=== PATIENT | male | born 1950 | race Caucasian/White ===

== ENCOUNTER 2016-07-31 17:32 | Inpatient (IN) | payer MEDICARE, MEDICAID ==
[2016-07-31 17:58] VITALS: BMI 23.3
--- NOTE | 2016-07-31 18:33 | C.PDOC ---
History Of Present Illness A 65 year old male was brought in by because patient was found unconscious on the floor today. notes that when he woke up he was confused and disoriented. Patient doesn't recall passing out or what led to passing out but is more oriented now. Patient admits to drinking heavily on the weekend but denies drinking over the past day. He did drink a lot of water today but denies fever, chills, headache, palpitations, or any other complaints. Patient notes taking pills for circulation and doesn't know why. Time Seen by Provider: 07/31/16 17:51 History Per: Patient, Family History/Exam Limitations: no limitations Onset/Duration Of Symptoms: Hrs Current Symptoms Are (Timing): Still Present Fall Associated With With Symptoms: Yes, No Injury As Result Of Fall Severity: Mild Additional History Per: Patient Past Medical History Reviewed: Historical Data, Nursing Documentation, Vital Signs Vital Signs: Last Vital Signs Temp 98.5 F 07/31/16 17:37 Pulse 98 H 07/31/16 17:37 Resp 18 07/31/16 17:37 BP 151/82 H 07/31/16 17:37 Pulse Ox 95 07/31/16 19:18 Family History: States: Unknown Family Hx - Social History Hx Alcohol Use: Yes Hx Substance Use: No - Immunization History Hx Tetanus Toxoid Vaccination: No Hx Influenza Vaccination: No Hx Pneumococcal Vaccination: No Review Of Systems Except As Marked, All Systems Reviewed And Found Negative. Constitutional: Negative for: Fever, Chills Cardiovascular: Negative for: Palpitations Neurological: Positive for: Confusion (Syncopal episode), Other. Negative for: Headache Physical Exam - Physical Exam Appears: Non-toxic, No Acute Distress Skin: Normal Color, Warm, Dry Head: No Atraumatic, Normacephalic, Swelling (Swelling of the forehead, right eyebrow) Eye(s): bilateral: Normal Inspection, PERRL Oral Mucosa: Moist Tongue: Bite, Other (Ecchymosis right side of the tongue) Cardiovascular: Rhythm Regular, No Murmur Respiratory: Normal Breath Sounds, No Rales, No Rhonchi, No Wheezing Back: Other (Nonincontinence) Neurological/Psych: No Oriented x3 (More oriented now. Oriented to place and time), No Normal Speech (Slurred speech) ED Course And Treatment - Laboratory Results Result Diagrams: 07/31/16 18:36 07/31/16 18:36 Lab Interpretation: No Acute Changes Interpretation Of Abnormal: ETOH <2 ECG: Interpreted By Ga ECG Rhythm: Sinus Rhythm O2 Sat by Pulse Oximetry: 95 (Room air) Pulse Ox Interpretation: Normal - CT Scan/US Abdomen and pelvis Other Rad Studies (CT/US): Read By Radiologist, Radiology Report Reviewed CT/US Interpretation: Accession No. : [id number]. Patient Name / ID : DEJA MANZANARES / [id number]. Exam Date : 07/31/2016 18:23:51 ( Approved ). Study Comment : Sex / Age : M / 65Y. Creator : Shaji Amaya MD. Dictator : Shaji Amaya MD. Waste Examiner : [employer] Layout : Shaji Amaya MD. Approver2 : Report Date : 07/31/2016 18:30:45. My Comment : . PROCEDURE: CT HEAD WITHOUT CONTRAST. HISTORY: seizure. COMPARISON: None available. TECHNIQUE: Axial computed tomography images were obtained through the head/brain without intravenous contrast. Radiation dose: Total exam DLP = 930.96 mGy-cm. This CT exam was performed using one or more of the following dose reduction techniques: Automated exposure control, adjustment of the mA and/or kV according to patient size, and/or use of iterative reconstruction technique. FINDINGS: HEMORRHAGE: No intracranial hemorrhage. BRAIN: No mass effect or edema. Minimal age-appropriate diffuse cerebral atrophy. No evidence of acute infarct. VENTRICLES: Unremarkable. No hydrocephalus. CALVARIUM: Unremarkable. PARANASAL SINUSES: Unremarkable as visualized. No significant inflammatory changes. MASTOID AIR CELLS: Unremarkable as visualized. No inflammatory changes. OTHER FINDINGS: None. IMPRESSION: No intracranial mass , hemorrhage or evidence of acute infarct. Progress Note: 7:50 Patient had spontaneous generalized seizure in ED. episode lasted less than 1 minute. Patient post ictal. Cerebyx ordered Reevaluation Time: 19:48 - Physician Consult Information Time Consulting Physician Contacted: 19:50 Physician Contacted: Adithya Richey Outcome Of Conversation: Patient to be admitted for seizure disorder. Medical Decision Making Medical Decision Making: Plans: -EKG -Blood labs -IV fluids -Reassess and disposition Disposition - Disposition Disposition: HOSPITALIZED Disposition Time: 19:39 Condition: FAIR - Clinical Impression Clinical Impression: Alcohol withdrawal seizure - Scribe Statement The provider has reviewed the documentation as recorded by the Scribe Hiwot james All medical record entries made by the Lourdesibshen were at my direction and personally dictated by me. I have reviewed the chart and agree that the record accurately reflects my personal performance of the history, physical exam, medical decision making, and the department course for this patient. I have also personally directed, reviewed, and agree with the discharge instructions and disposition.
[2016-07-31 18:41] LABS: BASO % 0.2 % (0.0-2.0); EOS % 0.1 % (0.0-4.0); HEMATOCRIT 37.2 % (35.0-51.0); LYMPH # 0.7 K/uL (1.0-4.3); LYMPH % 6.7 % (20.0-40.0); MEAN CELL VOLUME 89.9 fL (80.0-94.0); MEAN CORPUSCULAR HEMOGLOBIN 31.1 pg (27.0-31.0); MEAN CORPUSCULAR HGB CONC 34.6 g/dL (33.0-37.0); MEAN PLATELET VOLUME 7.8 fL (7.2-11.7); MONO # 1.2 K/uL (0.0-0.8); MONO % 10.9 % (0.0-10.0); PLATELET COUNT 207 K/uL (130-400); RED CELL DISTRIBUTION WIDTH 13.3 % (11.5-14.5); WHITE BLOOD COUNT 10.6 K/uL (4.8-10.8)
[2016-07-31 18:44] LABS: RBC URINE 2 /hpf (0-3); URINE BACTERIA RARE (<OCC); URINE BILIRUBIN NEGATIVE (NEGATIVE); URINE COLOR Straw (YELLOW); URINE GLUCOSE (UA) NORMAL (Normal); URINE KETONE TRACE mg/dL (NEGATIVE); URINE LEUKOCYTE ESTERASE NEG Leu/uL (Negative); URINE PROTEIN NEGATIVE (NEGATIVE); URINE UROBILINOGEN NORMAL mg/dL (0.2-1.0); WBC URINE < 1 /hpf (0-5)
[2016-07-31 18:47] LABS: URINE BLOOD TRACE (NEGATIVE)
[2016-07-31 18:49] LABS: CHLORIDE 93 mmol/L (98-107); POTASSIUM 3.6 mmol/L (3.6-5.2); SODIUM 134 mmol/L (132-148)
[2016-07-31 18:51] LABS: GFR AFRICAN-AMERICAN > 60
[2016-07-31 18:52] LABS: ALB/GLOB RATIO 1.7 (1.0-2.1); ALKALINE PHOSPHATASE 72 U/L (38-126); ALT/SGPT 25 U/L (21-72); AST/SGOT 47 U/L (17-59); BILIRUBIN,TOTAL 1.4 mg/dL (0.2-1.3); BLOOD UREA NITROGEN 10 mg/dL (9-20); CALCIUM 9.4 mg/dl (8.6-10.4); CARBON DIOXIDE 24 mmol/L (22-30); GLUCOSE,RANDOM 117 mg/dL (75-110); TOTAL PROTEIN 7.6 g/dL (6.3-8.3)
[2016-07-31 18:53] LABS: ALCOHOL SERUM < 10 mg/dl (0-10)
[2016-07-31 19:12] LABS: NEUTROPHIL 81 % (50-75); TOTAL CELLS COUNTED 100
[2016-07-31] MEDS ORDERED: Fosphenytoin 1,000 MG in Sodium Chloride 0.9% 50 ML IV STA (19:45)
[2016-07-31] MEDS ORDERED: Fosphenytoin 1,000 MG in Sodium Chloride 0.9% 50 ML IV ONE (20:00)
--- NOTE | 2016-07-31 20:10 | CP.PCM.HP ---
<AntwanearnestShaji - Last Filed: 07/31/16 22:07> History of Present Illness - History of Present Illness History of Present Illness: CC: Patient lethargic s/p seizure (no complaints) HPI: 65 year old male with PMHx of Alcohol Abuse (15yrs) and Seizures, was brought in by ex- because patient was found unconscious on the floor today. Since patient was very lethargic and uncooperative during interview, the major of detail was obtain by speaking with ex- (Piper) and sister (Nichole) at bedside. Per family, when patient woke up on the floor, he was confused and disoriented. Neither the patient nor family recall what led to the syncopal episode, however family deduces it was either from being intoxicated or having a seizure. The patient admits to drinking heavily over the weekend (possibly 2+ bottles of wine per day), with the last drink yesterday. He reports drinking "a lot of water today." Patient is grossly lethargic and disoriented (alert to person/time, not place) and ROS is unreliable. Denies f/c, headache, dizziness, change in vision, hallucinations, chest pain, SOB, abdominal pain, n/v, d/c, or any additional complaints. Per ED note, patient had spontaneous generalized seizure in ED, lasting less than 1 minute and Cerebyx was administered. PMHx: Alcohol Abuse (x15yrs); Seizure (2010, 2013 - tx at [place]). PSHx: Surgical fixation of L wrist (2006) Meds: none Allergies: NKDA FamHx: Father Alcoholism ( at 45) SocHx: ETOH 6+ bottles of wine/wk x 15 years; Denies tobacco or illicit drug use PMD: none Present on Admission - Present on Admission Any Indicators Present on Admission: No Review of Systems - Review of Systems Systems not reviewed;Unavailable: Acuity of Condition, Altered Mental Status, Intoxicated (patient is very lethargic and uncooperative.), Uncooperative Past Patient History - Infectious Disease Hx of Infectious Diseases: None - Past Social History Smoking Status: Never Smoked - PSYCHIATRIC Hx Substance Use: No - SURGICAL HISTORY Hx Surgeries: No Meds Allergies/Adverse Reactions: Allergies Allergy/AdvReac Type Severity Reaction Status Date / Time No Known Allergies Allergy Verified 11/26/15 05:24 Physical Exam - Constitutional Appears: Non-toxic, No Acute Distress, Agitated (patient is very lethargic/ sleepy, and when aroused begins pulling at clothes), Confused - Head Exam Head Exam: NORMAL INSPECTION, NORMOCEPHALIC. absent: ATRAUMATIC (contusion over Right eyebrow) - Eye Exam Eye Exam: EOMI, Normal appearance, PERRL - ENT Exam ENT Exam: Mucous Membranes Dry. absent: Normal Exam (tongue bite with mild irritation of Rt tongue) - Neck Exam Neck exam: Positive for: Normal Inspection. Negative for: Tenderness - Respiratory Exam Respiratory Exam: Clear to Auscultation Bilateral, NORMAL BREATHING PATTERN. absent: Wheezes - Cardiovascular Exam Cardiovascular Exam: Tachycardia, +S1, +S2 - GI/Abdominal Exam GI & Abdominal Exam: Normal Bowel Sounds, Soft. absent: Tenderness - Extremities Exam Extremities exam: Positive for: normal inspection. Negative for: pedal edema, tenderness - Back Exam Back exam: absent: CVA tenderness (L), CVA tenderness (R) - Neurological Exam Neurological exam: Altered, Reflexes Normal Additional comments: Oriented to person/time, not place - Psychiatric Exam Psychiatric exam: Flat Affect (likely due to intoxication / withdrawal) - Skin Skin Exam: Dry, Intact, Normal Color, Warm Results - Vital Signs Recent Vital Signs: Last Vital Signs Temp 98.5 F 07/31/16 17:37 Pulse 98 H 07/31/16 17:37 Resp 18 07/31/16 17:37 BP 151/82 H 07/31/16 17:37 Pulse Ox 95 07/31/16 19:52 - Labs Result Diagrams: 07/31/16 18:36 07/31/16 18:36 Labs: Laboratory Results - last 24 hr 07/31/16 07/31/16 07/31/16 18:36 18:36 18:36 WBC 10.6 RBC 4.14 L Hgb 12.9 Hct 37.2 MCV 89.9 MCH 31.1 H MCHC 34.6 RDW 13.3 Plt Count 207 MPV 7.8 Neut % (Auto) 82.1 H Lymph % (Auto) 6.7 L Hoke % (Auto) 10.9 H Eos % (Auto) 0.1 Baso % (Auto) 0.2 Neut # 8.7 H Lymph # 0.7 L [place]oke # 1.2 H Eos # 0.0 Baso # 0.0 Neutrophils % (Manual) 81 H Lymphocytes % (Manual) 7 L Monocytes % (Manual) 12 H Platelet Estimate Normal Sodium 134 Potassium 3.6 Chloride 93 L Carbon Dioxide 24 Anion Gap 20 BUN 10 Creatinine 0.6 L Est GFR ( Amer) > 60 Est GFR (Non-Af Amer) > 60 Random Glucose 117 H Calcium 9.4 Total Bilirubin 1.4 H AST 47 ALT 25 Alkaline Phosphatase 72 Total Protein 7.6 Albumin 4.7 Globulin 2.9 Albumin/Globulin Ratio 1.7 Urine Color Straw Urine Clarity Clear Urine pH 7.0 Ur Specific [place] 1.011 Urine Protein Negative Urine Glucose (UA) Normal Urine Ketones Trace Urine Blood Trace H Urine Nitrate Negative Urine Bilirubin Negative Urine Urobilinogen Normal Ur Leukocyte Esterase Neg Urine WBC (Auto) < 1 Urine RBC (Auto) 2 Urine Bacteria Rare Alcohol, Quantitative < 10 Assessment & Plan - Assessment and Plan (Free Text) Assessment: Alcohol withdrawal -Hx of chronic alcohol abuse (x15yrs). -ETOH tox < 10 -Ativan 1mg IVP once (in ed) -Ativan Taper (see protocol) - hold for lethargy -Banana Bag at 100cc/hr (once) followed by NS0.9 at 100cc/hr -Thiamin 100mg PO qd, Hex Vit PO qd, FA 1mg PO qd (start in AM) -[facility] protocol -seizure precaution, neuro checks, aspiration precaution -Psych consult, Dr. Qureshi, f/u recs. -Tbili 1.4; AST/ALT WNL Seizure -Hx of 2 prior seizures per family, in 2010 + 2012. Seen at [facility]. Did not follow up with any physicians. -patient had spontaneous generalized seizure in ED, lasting less than 1 minute -EKG - NSR -Fosphenytoin 1000mg at 100cc/hr (in ed) -Continue Dilantin 100mg Q8 IVPB in AM. May switch to PO once patient is less lethargic. Head Contusion -s/p unwitnessed fall. Contusion over right eyebrow -CT head - negative -fall precautions Prophylaxis SCDs Zofran 4mg IVP Q6H PRN, nausea - Date & Time Date: 07/31/16 Time: 20:10 <Adithya Richey - Last Filed: 08/01/16 06:41> Results - Vital Signs Recent Vital Signs: Last Vital Signs Temp 98.9 F 08/01/16 05:08 Pulse 84 08/01/16 05:08 Resp 20 08/01/16 05:08 BP 120/71 08/01/16 05:08 Pulse Ox 96 08/01/16 05:08 - Labs Result Diagrams: 07/31/16 18:36 07/31/16 18:36 Labs: Laboratory Results - last 24 hr 07/31/16 19:59 POC Glucose (mg/dL) 125 H Assessment & Plan - Date & Time Date: 08/01/16 (I have seen and examined the patient. I agree with the findings and plan as documented by Dr. Wiggins. Patient with alcohol withdrawal. Witnessed seizure in the ED and prior to arrival to hospital by family. CIWA protocol. Continue Fosphenytoin. Thiamine and Folate. Consult to psych. Head contusion possibly from prior seizure or fall due to alcoholism. CT head negative. Monitor for acute changes.) Time: 06:38 Attending/Attestation - Attestation I have personally seen and examined this patient.: Yes I have fully participated in the care of the patient.: Yes I have reviewed all pertinent clinical information: Yes
[2016-07-31] MEDS ORDERED: Multivitamin (MVI) 10 ML, Thiamine 100 MG, Folic Acid 1 MG in Sodium Chloride 0.9% 1,00... IV ONE (22:15)
[2016-08-01 07:57] LABS: BASO % 0.4 % (0.0-2.0); HEMATOCRIT 36.9 % (35.0-51.0); LYMPH # 0.8 K/uL (1.0-4.3); LYMPH % 10.9 % (20.0-40.0); MEAN CELL VOLUME 90.5 fL (80.0-94.0); MEAN CORPUSCULAR HEMOGLOBIN 31.1 pg (27.0-31.0); MEAN CORPUSCULAR HGB CONC 34.3 g/dL (33.0-37.0); MEAN PLATELET VOLUME 8.1 fL (7.2-11.7); MONO # 0.9 K/uL (0.0-0.8); MONO % 12.5 % (0.0-10.0); RED CELL DISTRIBUTION WIDTH 13.6 % (11.5-14.5); WHITE BLOOD COUNT 7.4 K/uL (4.8-10.8)
[2016-08-01 08:20] LABS: CHLORIDE 92 mmol/L (98-107); POTASSIUM 3.9 mmol/L (3.6-5.2); SODIUM 129 mmol/L (132-148)
[2016-08-01 08:22] LABS: AST/SGOT 104 U/L (17-59); BILIRUBIN,TOTAL 1.3 mg/dL (0.2-1.3); CARBON DIOXIDE 29 mmol/L (22-30); GFR AFRICAN-AMERICAN > 60
[2016-08-01 08:23] LABS: ALB/GLOB RATIO 1.5 (1.0-2.1); ALKALINE PHOSPHATASE 60 U/L (38-126); ALT/SGPT 33 U/L (21-72); BLOOD UREA NITROGEN 7 mg/dL (9-20); CALCIUM 8.7 mg/dl (8.6-10.4); GLUCOSE,RANDOM 106 mg/dL (75-110); MAGNESIUM 1.8 mg/dL (1.6-2.3); PHOSPHOROUS 3.3 mg/dL (2.5-4.5); TOTAL PROTEIN 7.1 g/dL (6.3-8.3)
[2016-08-01 09:14] LABS: FOLATE > 20.0 ng/mL
[2016-08-01] MEDS: Multiple Vitamins Tab PO SCH (10:12)
[2016-08-01] MEDS: Sodium Chloride 0.9% 1,000 ML IV SCH ×2 (10:18→18:46)
--- NOTE | 2016-08-01 10:46 | PCM.PSYCH ---
Initial Psychiatric Evaluation - Initial Psychiatric Evaluation Type of Admission: Voluntary Legal Status: Capacity Chief Complaint (in patient's own words): I do not know History of Present Illness and Precipitating Events: This is a 65 years old male, who lives with his , currently unemployed and has a long history of drinking was escorted to the ED by the and she found him on the floor. Today patient was consulted because of history of alcohol use disorder and alcohol withdrawal symptoms. As per the hospital charts patient has a long history of drinking. He has been drinking for more than 2 pints on a daily basis. As per the information from the , patient was found on the floor intoxicated. She wasn't sure that patient had a seizure before getting intoxication or had a fall. However patient remained disorganize, internally preoccupied and delusional throughout the interview. Patient was disoriented to time and place. He remained irritable and agitated. As per the staff, patient at times become irritable, aggressive, agitated. Patient was on one-to-one for safety. However patient denied any suicidal ideation and any homicidal ideation. Current Medications: Active Medications Generic Name Dose Route Start Last Admin Trade Name Freq PRN Reason Stop Dose Admin Folic Acid 1 mg 08/01/16 10:00 08/01/16 10:12 Folic Acid PO 1 mg DAILY BRANDY Administration Phenytoin 100 mg/ Sodium 52 mls @ 240 mls/hr 08/01/16 06:00 08/01/16 07:23 Chloride IVPB 240 mls/hr Q8 BRANDY Administration Sodium Chloride 1,000 mls @ 100 mls/hr 08/01/16 08:30 08/01/16 10:18 Sodium Chloride 0.9% IV 100 mls/hr .Q10H BRANDY Administration Lorazepam 2 mg 07/31/16 20:54 08/01/16 08:06 Ativan PO 08/05/16 20:44 2 mg Q4 BRANDY Administration Taper Lorazepam 1 mg 07/31/16 23:27 08/01/16 00:09 Ativan IVP 1 mg Q4H PRN Administration Seizure activity Multivitamins 1 tab 08/01/16 10:00 08/01/16 10:12 Hexavitamin PO 1 tab DAILY BRANDY Administration Ondansetron HCl 4 mg 07/31/16 20:54 07/31/16 21:33 Zofran Inj IVP 4 mg Q6 PRN Administration Nausea/Vomiting Thiamine HCl 100 mg 08/01/16 10:00 08/01/16 10:11 Vitamin B1 Tab PO 100 mg DAILY BRANDY Administration Past Psychiatric History - Past Psychiatric History Previous Treatment History: None Pertinent Medical Hx (Current Medical&Sleep Prob, Allergies): Allergies Allergy/AdvReac Type Severity Reaction Status Date / Time No Known Allergies Allergy Verified 11/26/15 05:24 No Known Home Med 11/26/15 Review of Systems - Review of Systems All systems: reviewed and no additional remarkable complaints except - Psychiatric Psychiatric: Anxiety, Irritability Mental Status Examination - Personal Presentation Personal Presentation: Looks stated age - Affect Affect: Blunted - Motor Activity Motor Activity: Psychomotor Retardation - Reliability in Providing Information Reliability in Providing Information: Poor, due to alteration in thoughts, Poor , due to cognitve impairment - Speech Speech: Disorganized - Mood Mood: Anxious - Formal Thought Process Formal Thought Process: Delusions, Loosening of associations - Hallucinations/Delusions Delusions: Persecution - Obsessions/Compulsions Obsessions: No Compulsions: No - Cognitive Functions Orientation: Person Sensorium: Drowsy, Stuporous Attention/Concentration: Easily distracted Estimate of Intelligence: Below average Judgement: Imparied, as evidence by: Poor judgement, Imparied, as evidence by: Lack of insight into illness - Risk Risk: Withdrawal, Diminished functioning - Limitations Limitations: Living alone DSM 5 DX - DSM 5 DSM 5 Diagnosis: Alcohol induced psychosis R/O Delirium tremens Alcohol withdrawal complicated Alcohol use disorder severe - Recommended/Plan of Treatment Treatment Recommendations and Plan of Treatment: Alcohol withdrawal complicated R/O Delirium tremens CBT Psychoeducation Supportive therapy, individual therapy Ativan when necessary Ativan taper Folic acid/thiamine/multivitamin Haldol 5 mg by mouth twice a day Alcohol use disorder severe CBT Psychoeducation Supportive therapy, individual therapy Use [place] for abstinence - Smoking Cessation Smoking Cessation Initiated: No
--- NOTE | 2016-08-01 18:46 | CARD ---
APPROVED REPORT EKG Measurement Heart [id number] <Conclusion> Normal sinus rhythm Normal ECG
--- NOTE | 2016-08-01 19:28 | CP.PCM.PN ---
<Delmer Farr - Last Filed: 08/01/16 19:26> Subjective - Date & Time of Evaluation Date of Evaluation: 08/01/16 Time of Evaluation: 09:20 - Subjective Subjective: 65M with pmh of alcohol abuse admitted for alcohol withdrawal and seizures. Pt' s son states the seizures have only been associated with his alcohol abuse and have never been on seizure medications. During the exam the pt. was agitated, combative and was unable to be examined. A ROS and physical were unobtainable. Objective - Vital Signs/Intake and Output Vital Signs (last 24 hours): Temp Pulse Resp BP Pulse Ox 98.2 F 70 20 118/73 97 08/01/16 16:20 08/01/16 16:20 08/01/16 16:20 08/01/16 16:20 08/01/16 16:20 Intake and Output: 08/01/16 08/02/16 18:59 06:59 Intake Total 2290 Output Total 500 Balance 1790 - Medications Medications: Current Medications Diphenhydramine HCl (Benadryl) 50 mg PO BID [facility] Last Admin: 08/01/16 17:32 Dose: 50 mg Diphenhydramine HCl (Benadryl) 50 mg PO Q6 PRN PRN Reason: Extra Pyramidal Symptoms Folic Acid (Folic Acid) 1 mg PO DAILY [facility] Last Admin: 08/01/16 10:12 Dose: 1 mg Haloperidol (Haldol) 5 mg PO BID [facility] Last Admin: 08/01/16 17:32 Dose: 5 mg Haloperidol (Haldol) 5 mg PO Q8 PRN PRN Reason: Moderate Agitation Haloperidol Lactate (Haldol) 5 mg IM Q8 PRN PRN Reason: Moderate Agitation Sodium Chloride (Sodium Chloride 0.9%) 1,000 mls @ 100 mls/hr IV .Q10H [facility] Last Admin: 08/01/16 18:46 Dose: 100 mls/hr Lorazepam (Ativan) 1 mg IVP Q4H PRN PRN Reason: Seizure activity Last Admin: 08/01/16 00:09 Dose: 1 mg Lorazepam (Ativan) 2 mg PO Q4 BRANDY PRN Reason: Taper Stop: 08/05/16 20:53 Multivitamins (Hexavitamin) 1 tab PO DAILY [facility] Last Admin: 08/01/16 10:12 Dose: 1 tab Ondansetron HCl (Zofran Inj) 4 mg IVP Q6 PRN PRN Reason: Nausea/Vomiting Last Admin: 07/31/16 21:33 Dose: 4 mg Thiamine HCl (Vitamin B1 Tab) 100 mg PO DAILY [facility] Last Admin: 08/01/16 10:11 Dose: 100 mg - Labs Labs: 08/01/16 07:35 08/01/16 07:35 - Constitutional Appears: Agitated - Head Exam Head Exam: ATRAUMATIC, NORMOCEPHALIC Assessment and Plan - Assessment and Plan (Free Text) Plan: Alcohol withdrawal -Hx of chronic alcohol abuse (x15yrs). -ETOH tox < 10 -Ativan Taper (see protocol) - hold for lethargy -Ativan 1mg q4 prn -NS0.9 at 100cc/hr -Thiamin 100mg PO qd, Hex Vit PO qd, FA 1mg PO qd (start in AM) -[facility] protocol -seizure precaution, neuro checks, aspiration precaution -Psych consult, Dr. Qureshi, f/u recs. -Psychoeducation -CBT, Supportive Therapy, individual therapy -R/O Delirium tremens -Haldol 5mg BID -Tbili 1.4; AST/ALT WNL Seizure -per son, seizures only associated with alcohol abuse -d/c phenytoin, continue Ativan taper and Ativan prn Head Contusion -s/p unwitnessed fall. Contusion over right eyebrow -CT head - negative -fall precautions Prophylaxis SCDs Zofran 4mg IVP Q6H PRN, nausea <Hardeep Robison M - Last Filed: 08/02/16 16:01> Objective - Vital Signs/Intake and Output Vital Signs (last 24 hours): Temp Pulse Resp BP Pulse Ox 97.8 F 73 20 139/85 95 08/02/16 08:00 08/02/16 08:00 08/02/16 08:00 08/02/16 08:00 08/02/16 08:00 Intake and Output: 08/02/16 08/02/16 06:59 18:59 Intake Total 1150 Output Total 1000 Balance 150 - Medications Medications: Current Medications Diphenhydramine HCl (Benadryl) 50 mg PO BID [facility] Last Admin: 04/28/17 09:46 Dose: Not Given Diphenhydramine HCl (Benadryl) 50 mg PO Q6 PRN PRN Reason: Extra Pyramidal Symptoms Folic Acid (Folic Acid) 1 mg PO DAILY [facility] Last Admin: 08/02/16 09:46 Dose: Not Given Haloperidol (Haldol) 5 mg PO BID [facility] Last Admin: 08/02/16 09:46 Dose: Not Given Haloperidol (Haldol) 5 mg PO Q8 PRN PRN Reason: Moderate Agitation Haloperidol Lactate (Haldol) 5 mg IM Q8 PRN PRN Reason: Moderate Agitation Heparin Sodium (Porcine) (Heparin) 5,000 units SC Q12 [facility] Last Admin: 08/02/16 09:46 Dose: 5,000 units Sodium Chloride (Sodium Chloride 0.9%) 1,000 mls @ 100 mls/hr IV .Q10H [facility] Last Admin: 08/02/16 14:12 Dose: Not Given Lorazepam (Ativan) 2 mg PO Q4 BRANDY PRN Reason: Taper Stop: 08/05/16 20:53 Last Admin: 08/02/16 08:04 Dose: Not Given Lorazepam (Ativan) 0.5 mg IVP Q4H PRN PRN Reason: Seizure activity Multivitamins (Hexavitamin) 1 tab PO DAILY [facility] Last Admin: 08/02/16 09:46 Dose: Not Given Ondansetron HCl (Zofran Inj) 4 mg IVP Q6 PRN PRN Reason: Nausea/Vomiting Last Admin: 07/31/16 21:33 Dose: 4 mg Thiamine HCl (Vitamin B1 Tab) 100 mg PO DAILY [facility] Last Admin: 08/02/16 09:46 Dose: Not Given - Labs Labs: 08/02/16 11:05 08/02/16 07:18 Attending/Attestation - Attestation I have personally seen and examined this patient.: Yes I have fully participated in the care of the patient.: Yes I have reviewed all pertinent clinical information, including history, physical exam and plan: Yes Notes (Text): 08/02/16 16:00 Patient was seen and examined at bedside with the resident Patient is on Ativan taper Psychiatry evaluation seen and appreciated Patient does not have history of seizure disorder. The seizure is a likely secondary to alcohol withdrawal We will hold antiseizure medication I discussed the plan of care with the resident and agree with the above history and physical and assessment/plan by the resident
[2016-08-02 07:58] LABS: CHLORIDE 98 mmol/L (98-107); SODIUM 134 mmol/L (132-148)
[2016-08-02 08:00] LABS: AST/SGOT 171 U/L (17-59); BILIRUBIN,TOTAL 1.4 mg/dL (0.2-1.3); CARBON DIOXIDE 24 mmol/L (22-30); GFR AFRICAN-AMERICAN > 60
[2016-08-02 08:01] LABS: ALB/GLOB RATIO 1.5 (1.0-2.1); ALKALINE PHOSPHATASE 58 U/L (38-126); ALT/SGPT 50 U/L (21-72); BLOOD UREA NITROGEN 6 mg/dL (9-20); CALCIUM 8.4 mg/dl (8.6-10.4); GLUCOSE,RANDOM 81 mg/dL (75-110); MAGNESIUM 1.9 mg/dL (1.6-2.3); PHOSPHOROUS 3.1 mg/dL (2.5-4.5); TOTAL PROTEIN 6.6 g/dL (6.3-8.3)
[2016-08-02] MEDS: Multiple Vitamins Tab PO SCH (09:46)
[2016-08-02 11:18] LABS: BASO % 0.5 % (0.0-2.0); EOS % 0.9 % (0.0-4.0); HEMATOCRIT 38.9 % (35.0-51.0); LYMPH # 1.3 K/uL (1.0-4.3); MEAN CORPUSCULAR HEMOGLOBIN 30.5 pg (27.0-31.0); MEAN CORPUSCULAR HGB CONC 33.5 g/dL (33.0-37.0); MEAN PLATELET VOLUME 8.4 fL (7.2-11.7); MONO # 0.7 K/uL (0.0-0.8); MONO % 13.2 % (0.0-10.0); RED CELL DISTRIBUTION WIDTH 13.1 % (11.5-14.5)
[2016-08-02] MEDS: Sodium Chloride 0.9% 1,000 ML IV SCH (14:12)
--- NOTE | 2016-08-02 15:28 | PCM.PYCHPN ---
Psychiatric Progress Note - Psychiatric Progress Note Patient seen today, length of contact: 15 min Patient Chief Complaint: I do not know Problems Identified/Issues Discussed: Patient seen and evaluated, chart reviewed and discussed with the nurse. Patient remained disorganized, and internally preoccupied. Patient remained delusional and and disoriented. Patient still appears paranoid and delusional. He is on one-to-one. As per the staff he at times becomes irritable and agitated and tried to come off the bed and try to take the IV lines out. Medication Change: No Medical Record Reviewed: Yes Mental Status Examination - Cognitive Function Orientation: Person Memory: Intact Attention: Poor Concentration: Poor Association: Loose Fund of Knowledge: Poor - Mood Mood: Anxious - Affect Affect: Constricted - Formal Thought Process Formal Thought Process: Delusions, Paranoia, Loosening of associations - Suicidal Ideation Suicidal Ideation: No - Homicidal Ideation Homicidal Ideation: No Goal/Treatment Plan - Goal/Treatment Plan Need for Continued Stay: Remain at risks for inpatient hospitalization, Discharge may exacerbated symptoms, Severe functional impairment Progress Toward Problem(s) and Goals/Treatment Plan: Alcohol withdrawal complicated R/O Delirium tremens CBT Psychoeducation Supportive therapy, individual therapy Ativan when necessary Ativan taper Folic acid/thiamine/multivitamin Haldol 5 mg by mouth twice a day Alcohol use disorder severe CBT Psychoeducation Supportive therapy, individual therapy Use [place] for abstinence - Smoking Cessation Smoking Cessation Initiated: No
--- NOTE | 2016-08-02 21:01 | CP.PCM.PN ---
<Delmer Farr - Last Filed: 08/02/16 23:50> Subjective - Date & Time of Evaluation Date of Evaluation: 08/02/16 Time of Evaluation: 08:40 - Subjective Subjective: 65M with pmh of alcohol abuse admitted for alcohol withdrawal and seizures. Today, the pt. was sedated due to recent dose ativan. Pt. appeared in no acute distress and was arousable upon painful stimuli, but not coherent enough to have a conversation. His Ativan dose was decreased.. A ROS was unobtainable. Objective - Vital Signs/Intake and Output Vital Signs (last 24 hours): Temp Pulse Resp BP Pulse Ox 98.8 F 73 20 129/85 95 08/02/16 19:14 08/02/16 08:00 08/02/16 08:00 08/02/16 19:14 08/02/16 08:00 Intake and Output: 08/02/16 08/03/16 18:59 06:59 Intake Total 1150 Output Total 1000 Balance 150 - Medications Medications: Current Medications Diphenhydramine HCl (Benadryl) 50 mg PO BID [facility] Last Admin: 08/02/16 17:57 Dose: 50 mg Diphenhydramine HCl (Benadryl) 50 mg PO Q6 PRN PRN Reason: Extra Pyramidal Symptoms Folic Acid (Folic Acid) 1 mg PO DAILY [facility] Last Admin: 08/02/16 09:46 Dose: Not Given Haloperidol (Haldol) 5 mg PO BID [facility] Last Admin: 08/02/16 17:58 Dose: 5 mg Haloperidol (Haldol) 5 mg PO Q8 PRN PRN Reason: Moderate Agitation Haloperidol Lactate (Haldol) 5 mg IM Q8 PRN PRN Reason: Moderate Agitation Heparin Sodium (Porcine) (Heparin) 5,000 units SC Q12 [facility] Last Admin: 08/02/16 09:46 Dose: 5,000 units Sodium Chloride (Sodium Chloride 0.9%) 1,000 mls @ 100 mls/hr IV .Q10H [facility] Last Admin: 08/02/16 14:12 Dose: Not Given Lorazepam (Ativan) 1 mg PO Q6 [facility] PRN Reason: Taper Stop: 08/05/16 20:53 Last Admin: 08/02/16 08:04 Dose: Not Given Lorazepam (Ativan) 0.5 mg IVP Q4H PRN PRN Reason: Seizure activity Last Admin: 08/02/16 19:12 Dose: 0.5 mg Multivitamins (Hexavitamin) 1 tab PO DAILY [facility] Last Admin: 08/02/16 09:46 Dose: Not Given Ondansetron HCl (Zofran Inj) 4 mg IVP Q6 PRN PRN Reason: Nausea/Vomiting Last Admin: 07/31/16 21:33 Dose: 4 mg Thiamine HCl (Vitamin B1 Tab) 100 mg PO DAILY [facility] Last Admin: 08/02/16 09:46 Dose: Not Given - Labs Labs: 08/02/16 11:05 08/02/16 07:18 - Constitutional Appears: Non-toxic, No Acute Distress - Head Exam Head Exam: ATRAUMATIC, NORMOCEPHALIC - ENT Exam ENT Exam: Mucous Membranes Moist - Respiratory Exam Respiratory Exam: Clear to Ausculation Bilateral, NORMAL BREATHING PATTERN - Cardiovascular Exam Cardiovascular Exam: REGULAR RHYTHM, RRR, +S1, +S2. absent: JVD - GI/Abdominal Exam GI & Abdominal Exam: Soft, Normal Bowel Sounds. absent: Tenderness - Extremities Exam Extremities Exam: absent: Joint Swelling, Pedal Edema, Tenderness - Neurological Exam Neurological Exam: Altered (sedated) - Psychiatric Exam Additional comments: sedated - Skin Skin Exam: Dry, Intact, Normal Color, Warm Assessment and Plan - Assessment and Plan (Free Text) Assessment: Alcohol withdrawal -Hx of chronic alcohol abuse (x15yrs). -ETOH tox < 10 -Ativan Taper (see protocol) - hold for lethargy -Ativan 0.5mg q4 prn -NS 0.9 at 100cc/hr -Thiamin 100mg PO qd, Hex Vit PO qd, FA 1mg PO qd (start in AM) -[facility] protocol -seizure precaution, neuro checks, aspiration precaution -Psych consult, Dr. Qureshi, f/u recs. -Psychoeducation -CBT, Supportive Therapy, individual therapy -R/O Delirium tremens -Haldol 5mg BID -Tbili 1.4; AST/ALT WNL Seizure -per son, seizures only associated with alcohol abuse -d/c phenytoin, continue Ativan taper and Ativan prn Head Contusion -s/p unwitnessed fall. Contusion over right eyebrow -CT head - negative -fall precautions Prophylaxis SCDs Zofran 4mg IVP Q6H PRN, nausea <Hardeep Robison M - Last Filed: 08/03/16 09:04> Objective - Vital Signs/Intake and Output Vital Signs (last 24 hours): Temp Pulse Resp BP Pulse Ox 98.8 F 76 18 102/69 98 08/03/16 00:00 08/03/16 00:00 08/03/16 00:00 08/03/16 00:00 08/03/16 00:00 Intake and Output: 08/03/16 08/03/16 06:59 18:59 Intake Total 1100 Output Total 1000 Balance 100 - Medications Medications: Current Medications Diphenhydramine HCl (Benadryl) 50 mg PO BID [facility] Last Admin: 08/02/16 17:57 Dose: 50 mg Diphenhydramine HCl (Benadryl) 50 mg PO Q6 PRN PRN Reason: Extra Pyramidal Symptoms Folic Acid (Folic Acid) 1 mg PO DAILY [facility] Last Admin: 08/02/16 09:46 Dose: Not Given Haloperidol (Haldol) 5 mg PO BID [facility] Last Admin: 08/02/16 17:58 Dose: 5 mg Haloperidol (Haldol) 5 mg PO Q8 PRN PRN Reason: Moderate Agitation Haloperidol Lactate (Haldol) 5 mg IM Q8 PRN PRN Reason: Moderate Agitation Heparin Sodium (Porcine) (Heparin) 5,000 units SC Q12 [facility] Last Admin: 08/02/16 22:59 Dose: 5,000 units Sodium Chloride (Sodium Chloride 0.9%) 1,000 mls @ 100 mls/hr IV .Q10H [facility] Last Admin: 08/03/16 02:30 Dose: 100 mls/hr Lorazepam (Ativan) 1 mg PO Q6 [facility] PRN Reason: Taper Stop: 08/05/16 20:53 Last Admin: 08/02/16 08:04 Dose: Not Given Lorazepam (Ativan) 0.5 mg IVP Q4H PRN PRN Reason: Seizure activity Last Admin: 08/02/16 19:12 Dose: 0.5 mg Multivitamins (Hexavitamin) 1 tab PO DAILY [facility] Last Admin: 08/02/16 09:46 Dose: Not Given Ondansetron HCl (Zofran Inj) 4 mg IVP Q6 PRN PRN Reason: Nausea/Vomiting Last Admin: 07/31/16 21:33 Dose: 4 mg Thiamine HCl (Vitamin B1 Tab) 100 mg PO DAILY [facility] Last Admin: 08/02/16 09:46 Dose: Not Given - Labs Labs: 08/03/16 08:48 08/02/16 07:18 Attending/Attestation - Attestation I have personally seen and examined this patient.: Yes I have fully participated in the care of the patient.: Yes I have reviewed all pertinent clinical information, including history, physical exam and plan: Yes Notes (Text): 08/03/16 09:04 Patient was seen and examined at bedside with the resident Patient is somnolent but arousable We will hold Ativan because of patient's lethargy. I discussed the plan of care with the resident and agree with the above history and physical and assessment/plan but the resident
--- NOTE | 2016-08-03 02:15 | CP.PCM.PN ---
<Marty Fairchild - Last Filed: 08/03/16 02:09> Subjective - Date & Time of Evaluation Date of Evaluation: 08/03/16 Time of Evaluation: 02:09 - Subjective Subjective: PGY-1 Medicine Progress Note for Dr. Robison Patient seen and examined at bedside. No acute event overnight. Patient resting in bed comfortably. Patient feeling better and wants to sleep. Tolerating diet. Denies fever/chills, cp, sob, palpitations, abd pain, n/v/d. Objective - Vital Signs/Intake and Output Vital Signs (last 24 hours): Temp Pulse Resp BP Pulse Ox 99.0 F 83 21 129/78 95 08/02/16 22:10 08/02/16 22:10 08/02/16 22:10 08/02/16 22:10 08/02/16 22:10 Intake and Output: 08/02/16 08/03/16 18:59 06:59 Intake Total 1150 100 Output Total 1000 Balance 150 100 - Medications Medications: Current Medications Diphenhydramine HCl (Benadryl) 50 mg PO BID [facility] Last Admin: 08/02/16 17:57 Dose: 50 mg Diphenhydramine HCl (Benadryl) 50 mg PO Q6 PRN PRN Reason: Extra Pyramidal Symptoms Folic Acid (Folic Acid) 1 mg PO DAILY [facility] Last Admin: 08/02/16 09:46 Dose: Not Given Haloperidol (Haldol) 5 mg PO BID [facility] Last Admin: 08/02/16 17:58 Dose: 5 mg Haloperidol (Haldol) 5 mg PO Q8 PRN PRN Reason: Moderate Agitation Haloperidol Lactate (Haldol) 5 mg IM Q8 PRN PRN Reason: Moderate Agitation Heparin Sodium (Porcine) (Heparin) 5,000 units SC Q12 [facility] Last Admin: 08/02/16 22:59 Dose: 5,000 units Sodium Chloride (Sodium Chloride 0.9%) 1,000 mls @ 100 mls/hr IV .Q10H [facility] Last Admin: 08/02/16 14:12 Dose: Not Given Lorazepam (Ativan) 1 mg PO Q6 [facility] PRN Reason: Taper Stop: 08/05/16 20:53 Last Admin: 08/02/16 08:04 Dose: Not Given Lorazepam (Ativan) 0.5 mg IVP Q4H PRN PRN Reason: Seizure activity Last Admin: 08/02/16 19:12 Dose: 0.5 mg Multivitamins (Hexavitamin) 1 tab PO DAILY [facility] Last Admin: 08/02/16 09:46 Dose: Not Given Ondansetron HCl (Zofran Inj) 4 mg IVP Q6 PRN PRN Reason: Nausea/Vomiting Last Admin: 07/31/16 21:33 Dose: 4 mg Thiamine HCl (Vitamin B1 Tab) 100 mg PO DAILY [facility] Last Admin: 08/02/16 09:46 Dose: Not Given - Labs Labs: 08/02/16 11:05 08/02/16 07:18 - Constitutional Appears: Non-toxic, No Acute Distress - Head Exam Head Exam: ATRAUMATIC, NORMOCEPHALIC - Eye Exam Eye Exam: EOMI, Normal appearance Pupil Exam: PERRL - ENT Exam ENT Exam: Mucous Membranes Moist - Neck Exam Neck Exam: Normal Inspection - Respiratory Exam Respiratory Exam: Clear to Ausculation Bilateral, NORMAL BREATHING PATTERN - Cardiovascular Exam Cardiovascular Exam: RRR, +S1, +S2 - GI/Abdominal Exam GI & Abdominal Exam: Soft, Normal Bowel Sounds. absent: Tenderness - Extremities Exam Extremities Exam: Normal Capillary Refill. absent: Calf Tenderness - Back Exam Back Exam: absent: CVA tenderness (L), CVA tenderness (R) - Neurological Exam Neurological Exam: Alert, Awake, CN II-XII Intact, Oriented x3 - Psychiatric Exam Psychiatric exam: Flat Affect - Skin Skin Exam: Dry, Intact, Warm Assessment and Plan - Assessment and Plan (Free Text) Plan: Alcohol withdrawal -Hx of chronic alcohol abuse (x15yrs). -ETOH tox < 10 -Ativan Taper (see protocol) - hold for lethargy -Ativan 0.5 mg q4 prn -NS 0.9 at 100cc/hr -Thiamin 100mg PO qd, Hex Vit PO qd, FA 1mg PO qd (start in AM) -[facility] protocol -seizure precaution, neuro checks, aspiration precaution -Psych consult, Dr. Qureshi, f/u recs. -Psychoeducation -CBT, Supportive Therapy, individual therapy -R/O Delirium tremens -Haldol 5mg BID -Tbili 1.4; AST/ALT WNL Seizure -per son, seizures only associated with alcohol abuse -d/c phenytoin, continue Ativan taper and Ativan prn Head Contusion -s/p unwitnessed fall. Contusion over right eyebrow -CT head - negative -fall precautions Prophylaxis SCDs Zofran 4mg IVP Q6H PRN, nausea <Hardeep Robison M - Last Filed: 08/03/16 15:21> Objective - Vital Signs/Intake and Output Vital Signs (last 24 hours): Temp Pulse Resp BP Pulse Ox 98.8 F 76 18 102/69 98 08/03/16 00:00 08/03/16 00:00 08/03/16 00:00 08/03/16 00:00 08/03/16 00:00 Intake and Output: 08/03/16 08/03/16 06:59 18:59 Intake Total 1100 Output Total 1000 Balance 100 - Medications Medications: Current Medications Diphenhydramine HCl (Benadryl) 50 mg PO BID [facility] Last Admin: 08/03/16 09:21 Dose: 50 mg Diphenhydramine HCl (Benadryl) 50 mg PO Q6 PRN PRN Reason: Extra Pyramidal Symptoms Folic Acid (Folic Acid) 1 mg PO DAILY [facility] Last Admin: 08/02/16 09:46 Dose: Not Given Haloperidol (Haldol) 5 mg PO BID [facility] Last Admin: 08/02/16 17:58 Dose: 5 mg Haloperidol (Haldol) 5 mg PO Q8 PRN PRN Reason: Moderate Agitation Haloperidol Lactate (Haldol) 5 mg IM Q8 PRN PRN Reason: Moderate Agitation Last Admin: 08/03/16 09:21 Dose: 5 mg Heparin Sodium (Porcine) (Heparin) 5,000 units SC Q12 [facility] Last Admin: 08/03/16 09:22 Dose: 5,000 units Sodium Chloride (Sodium Chloride 0.9%) 1,000 mls @ 100 mls/hr IV .Q10H [facility] Last Admin: 08/03/16 02:30 Dose: 100 mls/hr Lorazepam (Ativan) 1 mg PO Q6 [facility] PRN Reason: Taper Stop: 08/05/16 20:53 Last Admin: 08/02/16 08:04 Dose: Not Given Lorazepam (Ativan) 0.5 mg IVP Q4H PRN PRN Reason: Seizure activity Last Admin: 08/03/16 10:08 Dose: 0.5 mg Multivitamins (Hexavitamin) 1 tab PO DAILY [facility] Last Admin: 08/03/16 09:21 Dose: 1 tab Ondansetron HCl (Zofran Inj) 4 mg IVP Q6 PRN PRN Reason: Nausea/Vomiting Last Admin: 07/31/16 21:33 Dose: 4 mg Thiamine HCl (Vitamin B1 Tab) 100 mg PO DAILY [facility] Last Admin: 08/02/16 09:46 Dose: Not Given - Labs Labs: 08/03/16 08:48 08/03/16 08:48 Attending/Attestation - Attestation I have personally seen and examined this patient.: Yes I have fully participated in the care of the patient.: Yes I have reviewed all pertinent clinical information, including history, physical exam and plan: Yes Notes (Text): 08/03/16 15:20 Patient was seen and examined at bedside Patient is somnolent but arousable Patient is more alert today than yesterday. We'll continue to hold Ativan because of somnolence Patient had physical therapy today and was able to ambulate As per the CP patient also had breakfast No further episodes of seizures We will continue current management I discussed the plan of care with the resident and agree with the above history and physical and assessment/plan. I discussed with the patient's son on phone.
[2016-08-03] MEDS: Sodium Chloride 0.9% 1,000 ML IV SCH ×5 (02:30→22:22)
[2016-08-03 08:58] LABS: BASO % 0.5 % (0.0-2.0); EOS # 0.1 K/uL (0.0-0.7); EOS % 0.8 % (0.0-4.0); HEMATOCRIT 39.4 % (35.0-51.0); LYMPH # 1.1 K/uL (1.0-4.3); LYMPH % 16.2 % (20.0-40.0); MEAN CELL VOLUME 91.8 fL (80.0-94.0); MEAN CORPUSCULAR HEMOGLOBIN 31.1 pg (27.0-31.0); MEAN CORPUSCULAR HGB CONC 33.8 g/dL (33.0-37.0); MEAN PLATELET VOLUME 8.1 fL (7.2-11.7); MONO # 0.7 K/uL (0.0-0.8); MONO % 9.7 % (0.0-10.0); NRBC % 0.1 % (0.0-2.0); RED CELL DISTRIBUTION WIDTH 13.4 % (11.5-14.5); WHITE BLOOD COUNT 6.7 K/uL (4.8-10.8)
[2016-08-03 09:11] LABS: CHLORIDE 97 mmol/L (98-107)
[2016-08-03 09:12] LABS: POTASSIUM 3.6 mmol/L (3.6-5.2); SODIUM 135 mmol/L (132-148)
[2016-08-03 09:14] LABS: ALB/GLOB RATIO 1.5 (1.0-2.1); BILIRUBIN,TOTAL 1.1 mg/dL (0.2-1.3); CARBON DIOXIDE 22 mmol/L (22-30); GFR AFRICAN-AMERICAN > 60; TOTAL PROTEIN 6.8 g/dL (6.3-8.3)
[2016-08-03 09:15] LABS: ALKALINE PHOSPHATASE 64 U/L (38-126); ALT/SGPT 47 U/L (21-72); AST/SGOT 155 U/L (17-59); BLOOD UREA NITROGEN 10 mg/dL (9-20); CALCIUM 8.6 mg/dl (8.6-10.4); GLUCOSE,RANDOM 128 mg/dL (75-110); PHOSPHOROUS 3.9 mg/dL (2.5-4.5)
[2016-08-03 09:16] LABS: MAGNESIUM 1.7 mg/dL (1.6-2.3)
[2016-08-03] MEDS: Multiple Vitamins Tab PO SCH (09:21)
[2016-08-03 19:57] VITALS: RESP 20
[2016-08-04 07:54] LABS: BASO % 0.4 % (0.0-2.0); EOS # 0.1 K/uL (0.0-0.7); EOS % 1.3 % (0.0-4.0); HEMATOCRIT 35.5 % (35.0-51.0); LYMPH # 1.2 K/uL (1.0-4.3); LYMPH % 16.6 % (20.0-40.0); MEAN CORPUSCULAR HEMOGLOBIN 31.3 pg (27.0-31.0); MEAN CORPUSCULAR HGB CONC 34.7 g/dL (33.0-37.0); MONO # 0.8 K/uL (0.0-0.8); MONO % 11.9 % (0.0-10.0); RED CELL DISTRIBUTION WIDTH 13.3 % (11.5-14.5); WHITE BLOOD COUNT 6.9 K/uL (4.8-10.8)
[2016-08-04 07:58] LABS: CHLORIDE 100 mmol/L (98-107)
[2016-08-04 07:59] LABS: SODIUM 136 mmol/L (132-148)
[2016-08-04 08:00] LABS: POTASSIUM 3.9 mmol/L (3.6-5.2)
[2016-08-04 08:02] LABS: ALB/GLOB RATIO 1.4 (1.0-2.1); ALKALINE PHOSPHATASE 65 U/L (38-126); ALT/SGPT 52 U/L (21-72); AST/SGOT 145 U/L (17-59); BILIRUBIN,TOTAL 0.9 mg/dL (0.2-1.3); BLOOD UREA NITROGEN 13 mg/dL (9-20); CARBON DIOXIDE 24 mmol/L (22-30); GFR AFRICAN-AMERICAN > 60; GLUCOSE,RANDOM 91 mg/dL (75-110); TOTAL PROTEIN 6.7 g/dL (6.3-8.3)
[2016-08-04 08:03] LABS: CALCIUM 8.6 mg/dl (8.6-10.4); MAGNESIUM 1.9 mg/dL (1.6-2.3); PHOSPHOROUS 4.1 mg/dL (2.5-4.5)
[2016-08-04] MEDS: Multiple Vitamins Tab PO SCH (09:37)
--- NOTE | 2016-08-04 15:24 | CP.PCM.PN ---
<Grace Myers - Last Filed: 08/04/16 15:34> Subjective - Date & Time of Evaluation Date of Evaluation: 08/04/16 Time of Evaluation: 08:00 - Subjective Subjective: Medicine Progress Note- Dr. Robison's service: Patient seen and examined at bedside this AM. Patient denies any pain, chest pain, headache, SOB or seizure activity. He states he is eating well as confirmed by his sister at bedside. Patient states he understands he has a drinking problem, but also states "but I drink a lot less than before". Sister at bedside concerned for patient and inquiring about inpatient detox program. No acute evens overnight. Objective - Vital Signs/Intake and Output Vital Signs (last 24 hours): Temp Pulse Resp BP Pulse Ox 97.9 F 85 20 133/84 95 08/04/16 07:00 08/04/16 07:00 08/04/16 07:00 08/04/16 07:00 08/04/16 07:00 Intake and Output: 08/04/16 08/04/16 06:59 18:59 Intake Total 0 450 Balance 2050 450 - Medications Medications: Current Medications Diphenhydramine HCl (Benadryl) 50 mg PO BID [facility] Last Admin: 08/04/16 09:37 Dose: 50 mg Diphenhydramine HCl (Benadryl) 50 mg PO Q6 PRN PRN Reason: Extra Pyramidal Symptoms Folic Acid (Folic Acid) 1 mg PO DAILY [facility] Last Admin: 08/04/16 09:37 Dose: 1 mg Haloperidol (Haldol) 5 mg PO BID [facility] Last Admin: 08/04/16 09:40 Dose: 5 mg Haloperidol (Haldol) 5 mg PO Q8 PRN PRN Reason: Moderate Agitation Haloperidol Lactate (Haldol) 5 mg IM Q8 PRN PRN Reason: Moderate Agitation Last Admin: 08/03/16 09:21 Dose: 5 mg Heparin Sodium (Porcine) (Heparin) 5,000 units SC Q12 [facility] Last Admin: 08/04/16 09:38 Dose: 5,000 units Lorazepam (Ativan) 1 mg PO Q8 [facility] PRN Reason: Taper Stop: 08/05/16 20:53 Last Admin: 08/02/16 08:04 Dose: Not Given Lorazepam (Ativan) 0.5 mg IVP Q4H PRN PRN Reason: Seizure activity Last Admin: 08/03/16 10:08 Dose: 0.5 mg Multivitamins (Hexavitamin) 1 tab PO DAILY [facility] Last Admin: 08/04/16 09:37 Dose: 1 tab Ondansetron HCl (Zofran Inj) 4 mg IVP Q6 PRN PRN Reason: Nausea/Vomiting Last Admin: 07/31/16 21:33 Dose: 4 mg Thiamine HCl (Vitamin B1 Tab) 100 mg PO DAILY [facility] Last Admin: 08/04/16 09:38 Dose: 100 mg - Labs Labs: 08/04/16 07:44 08/04/16 07:44 - Constitutional Appears: No Acute Distress - Head Exam Head Exam: NORMAL INSPECTION, NORMOCEPHALIC - Eye Exam Eye Exam: EOMI, Normal appearance. absent: Scleral icterus - ENT Exam ENT Exam: Mucous Membranes Moist - Neck Exam Neck Exam: Full ROM, Normal Inspection - Respiratory Exam Respiratory Exam: Clear to Ausculation Bilateral, NORMAL BREATHING PATTERN - Cardiovascular Exam Cardiovascular Exam: REGULAR RHYTHM, +S1, +S2 - GI/Abdominal Exam GI & Abdominal Exam: Soft. absent: Distended, Tenderness - Extremities Exam Extremities Exam: Full ROM, Normal Inspection - Neurological Exam Neurological Exam: Alert, Awake, Oriented x3 - Psychiatric Exam Psychiatric exam: Normal Affect, Normal Mood - Skin Skin Exam: Normal Color, Warm Assessment and Plan - Assessment and Plan (Free Text) Assessment: Alcohol withdrawal - Patient had physical therapy yesterday and was able to ambulate. He is alert and awake and oriented to self and place today. -Hx of chronic alcohol abuse (x15yrs). -ETOH tox < 10 -Tbili 1.4; AST/ALT WNL -Ativan Taper (see protocol) - on hold for lethargy -Ativan 0.5 mg q4 PRN - D/C NS 0.9 at 100cc/hr. Patient is eating. - Folic acid/thiamine/multivitamin -[facility] protocol -seizure precaution, neuro checks, aspiration precaution -Psych consult, Dr. Qureshi- help appreciated. -Psychoeducation -CBT, Supportive Therapy, individual therapy -Haldol 5mg BID -Haldol PRN for agitation Seizure -per son, seizures only associated with alcohol abuse -d/c phenytoin, continue Ativan taper and Ativan prn Head Contusion -s/p unwitnessed fall. Contusion over right eyebrow -CT head - negative -fall precautions Prophylaxis SCDs Zofran 4mg IVP Q6H PRN, nausea <RickiHardeep M - Last Filed: 08/04/16 17:18> Objective - Vital Signs/Intake and Output Vital Signs (last 24 hours): Temp Pulse Resp BP Pulse Ox 99 F 84 20 140/103 H 95 08/04/16 16:00 08/04/16 16:00 08/04/16 16:00 08/04/16 16:00 08/04/16 16:00 Intake and Output: 08/04/16 08/04/16 06:59 18:59 Intake Total 2049 450 Balance 2049 450 - Medications Medications: Current Medications Diphenhydramine HCl (Benadryl) 50 mg PO BID [facility] Last Admin: 08/04/16 09:37 Dose: 50 mg Diphenhydramine HCl (Benadryl) 50 mg PO Q6 PRN PRN Reason: Extra Pyramidal Symptoms Folic Acid (Folic Acid) 1 mg PO DAILY [facility] Last Admin: 08/04/16 09:37 Dose: 1 mg Haloperidol (Haldol) 5 mg PO BID [facility] Last Admin: 08/04/16 09:40 Dose: 5 mg Haloperidol (Haldol) 5 mg PO Q8 PRN PRN Reason: Moderate Agitation Haloperidol Lactate (Haldol) 5 mg IM Q8 PRN PRN Reason: Moderate Agitation Last Admin: 08/03/16 09:21 Dose: 5 mg Heparin Sodium (Porcine) (Heparin) 5,000 units SC Q12 [facility] Last Admin: 08/04/16 09:38 Dose: 5,000 units Lorazepam (Ativan) 1 mg PO Q8 [facility] PRN Reason: Taper Stop: 08/05/16 20:53 Last Admin: 08/02/16 08:04 Dose: Not Given Lorazepam (Ativan) 0.5 mg IVP Q4H PRN PRN Reason: Seizure activity Last Admin: 08/03/16 10:08 Dose: 0.5 mg Multivitamins (Hexavitamin) 1 tab PO DAILY [facility] Last Admin: 08/04/16 09:37 Dose: 1 tab Ondansetron HCl (Zofran Inj) 4 mg IVP Q6 PRN PRN Reason: Nausea/Vomiting Last Admin: 07/31/16 21:33 Dose: 4 mg Thiamine HCl (Vitamin B1 Tab) 100 mg PO DAILY [facility] Last Admin: 08/04/16 09:38 Dose: 100 mg - Labs Labs: 08/04/16 07:44 08/04/16 07:44 Attending/Attestation - Attestation I have personally seen and examined this patient.: Yes I have fully participated in the care of the patient.: Yes I have reviewed all pertinent clinical information, including history, physical exam and plan: Yes Notes (Text): 08/04/16 17:14 Patient seen and examined at bedside Patient is much more awake and alert today Patient is answering questions appropriately. Family is present at bedside Patient was admitted for alcohol withdrawal and seizures The seizures were likely secondary to alcohol withdrawal therefore medication for seizures was held Patient was started on Ativan taper but he became very somnolent therefore Ativan was placed on hold Patient is currently on Haldol and patient is doing better We will follow up recommendations of psychiatry for further treatment of alcohol withdrawal I discussed the plan of care with resident and I agree with above history and physical and assessment/plan by the resident.
[2016-08-04] MEDS: Sodium Chloride 0.9% 1,000 ML IV SCH (23:30)
[2016-08-05 07:23] VITALS: BP 128/83; PULSE 83; TEMP 98.2; O2SAT 97
[2016-08-05 08:20] LABS: BASO % 0.6 % (0.0-2.0); EOS # 0.1 K/uL (0.0-0.7); EOS % 2.3 % (0.0-4.0); HEMATOCRIT 37.2 % (35.0-51.0); LYMPH # 1.2 K/uL (1.0-4.3); LYMPH % 18.8 % (20.0-40.0); MEAN CELL VOLUME 90.6 fL (80.0-94.0); MEAN CORPUSCULAR HEMOGLOBIN 31.3 pg (27.0-31.0); MEAN CORPUSCULAR HGB CONC 34.5 g/dL (33.0-37.0); MEAN PLATELET VOLUME 7.9 fL (7.2-11.7); MONO # 0.7 K/uL (0.0-0.8); MONO % 11.5 % (0.0-10.0); RED CELL DISTRIBUTION WIDTH 13.3 % (11.5-14.5); WHITE BLOOD COUNT 6.5 K/uL (4.8-10.8)
[2016-08-05 08:34] LABS: CHLORIDE 100 mmol/L (98-107); POTASSIUM 4.1 mmol/L (3.6-5.2); SODIUM 136 mmol/L (132-148)
[2016-08-05 08:36] LABS: ALB/GLOB RATIO 1.4 (1.0-2.1); ALKALINE PHOSPHATASE 70 U/L (38-126); AST/SGOT 125 U/L (17-59); BILIRUBIN,TOTAL 0.9 mg/dL (0.2-1.3); BLOOD UREA NITROGEN 12 mg/dL (9-20); CARBON DIOXIDE 25 mmol/L (22-30); GFR AFRICAN-AMERICAN > 60; GLUCOSE,RANDOM 113 mg/dL (75-110); TOTAL PROTEIN 7.5 g/dL (6.3-8.3)
[2016-08-05 08:37] LABS: ALT/SGPT 57 U/L (21-72); CALCIUM 9.2 mg/dl (8.6-10.4); PHOSPHOROUS 3.8 mg/dL (2.5-4.5)
[2016-08-05] MEDS: Multiple Vitamins Tab PO SCH (10:24)
--- NOTE | 2016-08-05 14:05 | PCM.PYCHPN ---
Psychiatric Progress Note - Psychiatric Progress Note Patient seen today, length of contact: 16 min Patient Chief Complaint: "I'm fine now" Problems Identified/Issues Discussed: Covering for Dr. Qureshi he is seen, chart reviewd, case discussed. No new complaints He is pleasant and cooperative today. No delusions or hallucinations elicited or reported. He is forgetful and inattentive but no longer confused. Oriented to place, person and to time (mostly) [facility] care discussed - refused referrals except for AA Support given, [facility] used, Cleared for d/c Medication Change: No Medical Record Reviewed: Yes Mental Status Examination - Cognitive Function Orientation: Person, Place, Situation, Time (not to year: "2019") Memory: Intact Attention: Poor Concentration: Poor Association: Loose Fund of Knowledge: Poor - Mood Mood: Anxious - Affect Affect: Constricted - Speech Speech: Appropriate - Formal Thought Process Formal Thought Process: No Impairment - Suicidal Ideation Suicidal Ideation: No - Homicidal Ideation Homicidal Ideation: No Goal/Treatment Plan - Goal/Treatment Plan Progress Toward Problem(s) and Goals/Treatment Plan: Attend AA Consider IOP Stay away from alcohol, drugs See PCP regularly Take rx'ed meds
[2016-08-05] MEDS ORDERED: Pneumococcal 23-Valent Vaccine IM ONE (16:50)
--- NOTE | 2016-08-05 22:39 | CP.PCM.DIS ---
<Delmer Farr - Last Filed: 08/05/16 22:29> Provider - Provider Date of Admission: 08/01/16 17:07 Attending physician: Adithya Richey MD Time Spent in preparation of Discharge (in minutes): 35 Diagnosis - Discharge Diagnosis (1) Alcohol intoxication Status: Acute Hospital Course - Lab Results Lab Results: Most Recent Lab Values WBC 6.5 K/uL (4.8-10.8) 08/05/16 08:09 RBC 4.10 Mil/uL (4.40-5.90) L 08/05/16 08:09 Hgb 12.8 g/dL (12.0-18.0) 08/05/16 08:09 Hct 37.2 % (35.0-51.0) 08/05/16 08:09 MCV 90.6 fL (80.0-94.0) 08/05/16 08:09 MCH 31.3 pg (27.0-31.0) H 08/05/16 08:09 MCHC 34.5 g/dL (33.0-37.0) 08/05/16 08:09 RDW 13.3 % (11.5-14.5) 08/05/16 08:09 Plt Count 214 K/uL (130-400) 08/05/16 08:09 MPV 7.9 fL (7.2-11.7) 08/05/16 08:09 Neut % (Auto) 66.8 % (50.0-75.0) 08/05/16 08:09 Lymph % (Auto) 18.8 % (20.0-40.0) L 08/05/16 08:09 Emanuel % (Auto) 11.5 % (0.0-10.0) H 08/05/16 08:09 Eos % (Auto) 2.3 % (0.0-4.0) 08/05/16 08:09 Baso % (Auto) 0.6 % (0.0-2.0) 08/05/16 08:09 Neut # 4.3 K/uL (1.8-7.0) 08/05/16 08:09 Lymph # 1.2 K/uL (1.0-4.3) 08/05/16 08:09 Emanuel # 0.7 K/uL (0.0-0.8) 08/05/16 08:09 Eos # 0.1 K/uL (0.0-0.7) 08/05/16 08:09 Baso # 0.0 K/uL (0.0-0.2) 08/05/16 08:09 Neutrophils % (Manual) 81 % (50-75) H 07/31/16 18:36 Lymphocytes % (Manual) 7 % (20-40) L 07/31/16 18:36 Monocytes % (Manual) 12 % (0-10) H 07/31/16 18:36 Platelet Estimate Normal (NORMAL) 07/31/16 18:36 Sodium 136 mmol/L (132-148) 08/05/16 08:09 Potassium 4.1 mmol/L (3.6-5.2) 08/05/16 08:09 Chloride 100 mmol/L (98-107) 08/05/16 08:09 Carbon Dioxide 25 mmol/L (22-30) 08/05/16 08:09 Anion Gap 16 (10-20) 08/05/16 08:09 BUN 12 mg/dL (9-20) 08/05/16 08:09 Creatinine 0.6 MG/DL (0.8-1.5) L 08/05/16 08:09 Est GFR ( Amer) > 60 08/05/16 08:09 Est GFR (Non-Af Amer) > 60 08/05/16 08:09 POC Glucose (mg/dL) 125 mg/dL (65-110) H 07/31/16 19:59 Random Glucose 113 mg/dL (75-110) H 08/05/16 08:09 Serum Osmolality 276 mosm/kg (272-300) 08/01/16 20:39 Calcium 9.2 mg/dl (8.6-10.4) 08/05/16 08:09 Phosphorus 3.8 mg/dL (2.5-4.5) 08/05/16 08:09 Magnesium 2.0 mg/dL (1.6-2.3) 08/05/16 08:09 Total Bilirubin 0.9 mg/dL (0.2-1.3) 08/05/16 08:09 AST 125 U/L (17-59) H 08/05/16 08:09 ALT 57 U/L (21-72) 08/05/16 08:09 Alkaline Phosphatase 70 U/L (38-126) 08/05/16 08:09 Total Protein 7.5 g/dL (6.3-8.3) 08/05/16 08:09 Albumin 4.4 g/dL (3.5-5.0) 08/05/16 08:09 Globulin 3.1 gm/dL (2.2-3.9) 08/05/16 08:09 Albumin/Globulin Ratio 1.4 (1.0-2.1) 08/05/16 08:09 Vitamin B12 332 pg/mL (239-931) 08/01/16 07:35 Folate > 20.0 ng/mL 08/01/16 07:35 Urine Color Straw (YELLOW) 07/31/16 18:36 Urine Clarity Clear (Clear) 07/31/16 18:36 Urine pH 7.0 (5.0-8.0) 07/31/16 18:36 Ur Specific [place] 1.011 (1.003-1.030) 07/31/16 18:36 Urine Protein Negative mg/dL (NEGATIVE) 07/31/16 18:36 Urine Glucose (UA) Normal mg/dL (Normal) 07/31/16 18:36 Urine Ketones Trace mg/dL (NEGATIVE) 07/31/16 18:36 Urine Blood Trace (NEGATIVE) H 07/31/16 18:36 Urine Nitrate Negative (NEGATIVE) 07/31/16 18:36 Urine Bilirubin Negative (NEGATIVE) 07/31/16 18:36 Urine Urobilinogen Normal mg/dL (0.2-1.0) 07/31/16 18:36 Ur Leukocyte Esterase Neg Pineda/uL (Negative) 07/31/16 18:36 Urine WBC (Auto) < 1 /hpf (0-5) 07/31/16 18:36 Urine RBC (Auto) 2 /hpf (0-3) 07/31/16 18:36 Urine Bacteria Rare (<OCC) 07/31/16 18:36 Urine Osmolality 654 mosm/kg (300-1000) 08/01/16 20:39 Ur Random Sodium 142 mmol/L 08/01/16 20:39 Alcohol, Quantitative < 10 mg/dl (0-10) 07/31/16 18:36 - Hospital Course Hospital Course: 65 year old male with PMHx of Alcohol Abuse was brought in by ex- because patient was found unconscious on the floor today. Patient was grossly lethargic and disoriented (alert to person/time, not place). Per ED note, patient had spontaneous generalized seizure in ED, lasting less than 1 minute and Cerebyx was administered. It was later found the pt. does not have a history of seizures and has only had these episodes during times of alcohol withdrawal. CT head was negative for acute findings. Psych was consulted and pt. was started on Fluids, Multivitamins, Folic Acid, Thiamine, Ativan taper and CIWA protocol was initiated. Over the next 6 days the patient became more alert with no signs of withdrawal by day of discharge. Pt. was advised to stop drinking and join AA to address his Alcohol Abuse. He was also given a script for Gabapentin and advised to follow up with his primary care/[facility] within 1 week. This is a brief account of his stay. Please see his chart for more details - Date & Time of H&P Date of H&P: 08/05/16 Time of H&P: 03:00 Discharge Exam - Head Exam Head Exam: NORMAL INSPECTION, NORMOCEPHALIC - Eye Exam Eye Exam: EOMI, Normal appearance - ENT Exam ENT Exam: Mucous Membranes Moist - Neck Exam Neck exam: Full Rom - Respiratory Exam Respiratory Exam: Clear to PA & Lateral, NORMAL BREATHING PATTERN, UNREMARKABLE - Cardiovascular Exam Cardiovascular Exam: RRR, +S1, +S2 - GI/Abdominal Exam GI & Abdominal Exam: Normal Bowel Sounds, Soft, Unremarkable. absent: Tenderness - Extremities Exam Extremities exam: full ROM - Back Exam Back exam: FULL ROM. absent: rash noted - Neurological Exam Neurological exam: Alert, CN II-XII Intact, Normal Gait, Oriented x3, Reflexes Normal - Psychiatric Exam Psychiatric exam: Normal Affect, Normal Mood - Skin Skin Exam: Dry, Intact, Normal Color, Warm Discharge Plan - Discharge Medications Prescriptions: Gabapentin [Neurontin] 300 mg PO BID #60 cap - Follow Up Plan Condition: FAIR Disposition: HOME/ ROUTINE Instructions: Gabapentin (By mouth), Alcohol Intoxication (DC), Acute Delirium (DC), Alcohol Withdrawal (DC) Additional Instructions: Patient medically stable for discharge. Patient given information about AA programs for him to follow up with. Please stop drinking alcohol. Please follow up with your primary care within 1 week. If you do not have one please follow up with the [facility] at [phone] Thank you for allow us to take part in your care. <LoganShaji ya - Last Filed: 08/06/16 13:02> Provider - Provider Date of Admission: 08/01/16 17:07 Attending physician: Adithya Richey MD Hospital Course - Lab Results Lab Results: Most Recent Lab Values WBC 6.5 K/uL (4.8-10.8) 08/05/16 08:09 RBC 4.10 Mil/uL (4.40-5.90) L 08/05/16 08:09 Hgb 12.8 g/dL (12.0-18.0) 08/05/16 08:09 Hct 37.2 % (35.0-51.0) 08/05/16 08:09 MCV 90.6 fL (80.0-94.0) 08/05/16 08:09 MCH 31.3 pg (27.0-31.0) H 08/05/16 08:09 MCHC 34.5 g/dL (33.0-37.0) 08/05/16 08:09 RDW 13.3 % (11.5-14.5) 08/05/16 08:09 Plt Count 214 K/uL (130-400) 08/05/16 08:09 MPV 7.9 fL (7.2-11.7) 08/05/16 08:09 Neut % (Auto) 66.8 % (50.0-75.0) 08/05/16 08:09 Lymph % (Auto) 18.8 % (20.0-40.0) L 08/05/16 08:09 Emanuel % (Auto) 11.5 % (0.0-10.0) H 08/05/16 08:09 Eos % (Auto) 2.3 % (0.0-4.0) 08/05/16 08:09 Baso % (Auto) 0.6 % (0.0-2.0) 08/05/16 08:09 Neut # 4.3 K/uL (1.8-7.0) 08/05/16 08:09 Lymph # 1.2 K/uL (1.0-4.3) 08/05/16 08:09 Emanuel # 0.7 K/uL (0.0-0.8) 08/05/16 08:09 Eos # 0.1 K/uL (0.0-0.7) 08/05/16 08:09 Baso # 0.0 K/uL (0.0-0.2) 08/05/16 08:09 Neutrophils % (Manual) 81 % (50-75) H 07/31/16 18:36 Lymphocytes % (Manual) 7 % (20-40) L 07/31/16 18:36 Monocytes % (Manual) 12 % (0-10) H 07/31/16 18:36 Platelet Estimate Normal (NORMAL) 07/31/16 18:36 Sodium 136 mmol/L (132-148) 08/05/16 08:09 Potassium 4.1 mmol/L (3.6-5.2) 08/05/16 08:09 Chloride 100 mmol/L (98-107) 08/05/16 08:09 Carbon Dioxide 25 mmol/L (22-30) 08/05/16 08:09 Anion Gap 16 (10-20) 08/05/16 08:09 BUN 12 mg/dL (9-20) 08/05/16 08:09 Creatinine 0.6 MG/DL (0.8-1.5) L 08/05/16 08:09 Est GFR ( Amer) > 60 08/05/16 08:09 Est GFR (Non-Af Amer) > 60 08/05/16 08:09 POC Glucose (mg/dL) 125 mg/dL (65-110) H 07/31/16 19:59 Random Glucose 113 mg/dL (75-110) H 08/05/16 08:09 Serum Osmolality 276 mosm/kg (272-300) 08/01/16 20:39 Calcium 9.2 mg/dl (8.6-10.4) 08/05/16 08:09 Phosphorus 3.8 mg/dL (2.5-4.5) 08/05/16 08:09 Magnesium 2.0 mg/dL (1.6-2.3) 08/05/16 08:09 Total Bilirubin 0.9 mg/dL (0.2-1.3) 08/05/16 08:09 AST 125 U/L (17-59) H 08/05/16 08:09 ALT 57 U/L (21-72) 08/05/16 08:09 Alkaline Phosphatase 70 U/L (38-126) 08/05/16 08:09 Total Protein 7.5 g/dL (6.3-8.3) 08/05/16 08:09 Albumin 4.4 g/dL (3.5-5.0) 08/05/16 08:09 Globulin 3.1 gm/dL (2.2-3.9) 08/05/16 08:09 Albumin/Globulin Ratio 1.4 (1.0-2.1) 08/05/16 08:09 Vitamin B12 332 pg/mL (239-931) 08/01/16 07:35 Folate > 20.0 ng/mL 08/01/16 07:35 Urine Color Straw (YELLOW) 07/31/16 18:36 Urine Clarity Clear (Clear) 07/31/16 18:36 Urine pH 7.0 (5.0-8.0) 07/31/16 18:36 Ur Specific [place] 1.011 (1.003-1.030) 07/31/16 18:36 Urine Protein Negative mg/dL (NEGATIVE) 07/31/16 18:36 Urine Glucose (UA) Normal mg/dL (Normal) 07/31/16 18:36 Urine Ketones Trace mg/dL (NEGATIVE) 07/31/16 18:36 Urine Blood Trace (NEGATIVE) H 07/31/16 18:36 Urine Nitrate Negative (NEGATIVE) 07/31/16 18:36 Urine Bilirubin Negative (NEGATIVE) 07/31/16 18:36 Urine Urobilinogen Normal mg/dL (0.2-1.0) 07/31/16 18:36 Ur Leukocyte Esterase Neg Pineda/uL (Negative) 07/31/16 18:36 Urine WBC (Auto) < 1 /hpf (0-5) 07/31/16 18:36 Urine RBC (Auto) 2 /hpf (0-3) 07/31/16 18:36 Urine Bacteria Rare (<OCC) 07/31/16 18:36 Urine Osmolality 654 mosm/kg (300-1000) 08/01/16 20:39 Ur Random Sodium 142 mmol/L 08/01/16 20:39 Alcohol, Quantitative < 10 mg/dl (0-10) 07/31/16 18:36 Attending/Attestation - Attestation I have personally seen and examined this patient.: Yes I have fully participated in the care of the patient.: Yes I have reviewed all pertinent clinical information, including history, physical exam and plan: Yes Notes (Text): 08/06/16 12:54 Medical Attending: Patient was seen and examined with the medical territory manager. Agree with the above note by the resident. Patient was ambulating on his own without assistance. He did not have tremors on exam, tolerating diet, bathroom was ok Encouraged the patient to avoid alcohol use Shaji Logan
== END 2016-08-05 18:40 | disposition home or self-care (01) | DRG 895 ==
LOC: C.ER 17:32 → C.5T 19:52 → OBSVTOIN 08-01 17:07 → C.3T 08-02 21:52
PROVIDERS: ADMIT Family Medicine; ATTEND Family Medicine
PROC: HZ2ZZZZ Detoxification Services for Substance Abuse Treatment (ICD-10-PCS; principal; 2016-08-01)
PROC: HZ52ZZZ Individual Psychotherapy for Substance Abuse Treatment, Cognitive-Behavioral (ICD-10-PCS; 2016-08-01)
PROC: HZ59ZZZ Individual Psychotherapy for Substance Abuse Treatment, Supportive (ICD-10-PCS; 2016-08-01)
PROC: HZ56ZZZ Individual Psychotherapy for Substance Abuse Treatment, Psychoeducation (ICD-10-PCS; 2016-08-01)
DX: F10.231 Alcohol dependence with withdrawal delirium (principal); R56.9 Unspecified convulsions; F10.239 Alcohol dependence with withdrawal, unspecified; W18.30XA Fall on same level, unspecified, initial encounter; S00.93XA Contusion of unspecified part of head, initial encounter; S00.11XA Contusion of right eyelid and periocular area, initial encounter; Z81.1 Family history of alcohol abuse and dependence

== ENCOUNTER 2016-11-06 06:51 | Day surgery (SDC) | payer MEDICARE, MEDICAID ==
[2016-11-06 07:24] VITALS: BMI 26.9
[2016-11-06] MEDS ORDERED: Lactated Ringer's 500 ML IV ONE ×2 (09:16)
[2016-11-06] MEDS ORDERED: Propofol 10 mg/ml Inj (20 ML) ONE ×2 (09:21)
[2016-11-06] MEDS ORDERED: Lidocaine Hydrochloride 0 ML INJ ONE (09:21)
--- NOTE | 2016-11-06 09:23 | CP.SDSHP ---
Same Day Surgery H & P - History Proposed Procedure: Colonoscopy Pre-Op Diagnosis: Screening exam - Previous Medical/Surgical History Comments: Alcoholism Previous Surgical History: none - Allergies Allergies: Allergies No Known Allergies Allergy (Verified 11/06/16 07:23) - Current Medications Current Medications: reviewed, per reconciliation - Physical Exam General Appearance: wdwn nad Vital Signs: Vital Signs 11/06/16 11/06/16 07:24 07:42 Temperature 97.2 F L Pulse Rate 67 67 Respiratory 19 Rate Blood Pressure 131/97 H O2 Sat by Pulse 100 Oximetry Mental Status: Alert & Oriented x3 Heart: WNL Lungs: WNL GI: WNL - {Optional Preform as Required} Abdomen: WNL - Impression Impression: Screening colonoscopy Pt. Evaluated Today:Candidate for Anesthesia & Procedure: Yes - Date & Time Date: 11/06/16 Time: 09:23 Short Stay Discharge - Short Stay Discharge Admitting Diagnosis/Reason for Visit: ENCOUNTER FOR SCREENING FOR MALIGNANT NEOPLASM OF Disposition: HOME/ ROUTINE
[2016-11-06 09:35] VITALS: RESP 12
[2016-11-06 09:56] VITALS: TEMP 98.5
[2016-11-06 10:03] VITALS: O2SAT 100
[2016-11-06 11:05] VITALS: BP 143/70; PULSE 55
== END 2016-11-06 11:05 | disposition home or self-care (01) ==
LOC: C.ENDO 06:51
PROVIDERS: ATTEND Internal Medicine Gastroenterology
DX: Z12.11 Encounter for screening for malignant neoplasm of colon (principal)
CPT/HCPCS: 45378; J2704; J7120

== ENCOUNTER 2016-11-12 17:05 | Inpatient (IN) | payer MEDICARE, MEDICAID ==
[2016-11-12 17:18] VITALS: BMI 26.6
[2016-11-12 18:02] LABS: CHLORIDE 87 mmol/L (98-107); SODIUM 129 mmol/L (132-148)
[2016-11-12 18:03] LABS: POTASSIUM 3.8 mmol/L (3.6-5.2)
[2016-11-12 18:05] LABS: BILIRUBIN,TOTAL 1.6 mg/dL (0.2-1.3); GFR AFRICAN-AMERICAN > 60
[2016-11-12 18:06] LABS: ALB/GLOB RATIO 1.6 (1.0-2.1); ALCOHOL SERUM < 10 mg/dl (0-10); ALKALINE PHOSPHATASE 100 U/L (38-126); ALT/SGPT 26 U/L (21-72); AST/SGOT 34 U/L (17-59); BLOOD UREA NITROGEN 10 mg/dL (9-20); CARBON DIOXIDE 17 mmol/L (22-30); GLUCOSE,RANDOM 132 mg/dL (75-110); TOTAL PROTEIN 7.7 g/dL (6.3-8.3)
[2016-11-12 18:07] LABS: BASO % 0.2 % (0.0-2.0); EOS % 0.1 % (0.0-4.0); HEMATOCRIT 38.8 % (35.0-51.0); LYMPH # 2.6 K/uL (1.0-4.3); LYMPH % 20.9 % (20.0-40.0); MEAN CELL VOLUME 90.3 fL (80.0-94.0); MEAN CORPUSCULAR HEMOGLOBIN 31.1 pg (27.0-31.0); MEAN CORPUSCULAR HGB CONC 34.4 g/dL (33.0-37.0); MEAN PLATELET VOLUME 8.3 fL (7.2-11.7); MONO % 8.3 % (0.0-10.0); NRBC % 0.1 % (0.0-2.0); RED CELL DISTRIBUTION WIDTH 12.7 % (11.5-14.5)
[2016-11-12 18:08] LABS: CARBAMAZEPINE < 3.0 ug/mL (4.0-12.0)
[2016-11-12 18:10] LABS: VALPROIC ACID < 10.0 ug/mL (50.0-100.0)
--- NOTE | 2016-11-12 18:13 | C.PDOC ---
History Of Present Illness 66 y/o male presents to the ED for after being found waiting with tonic/clonic seizure activity in the waiting room. Patient was immediately transported to bed 4 for immediate treatment. Pt appears to have post-ictal period, appeared to be confused. Patient had ambulated to ED for unknown complaints. History limited at this time. came to ED, states pt was drinking heavy for 2 days since discharge from hospital for same, then no liquor at all yesterday nor today- was increasingly agitated and difficult to manage @ home. Came to ED for eval. Time Seen by Provider: 11/12/16 17:17 Chief Complaint (Nursing): Seizure History Per: Patient History/Exam Limitations: clinical condition Recent Seizure Activity Began: Just Before Arrival Length Of Seizures (Duration): Unknown Post-ictal Period: Yes Past Medical History Reviewed: Historical Data, Nursing Documentation, Vital Signs Vital Signs: Last Vital Signs Temp 97.8 F 11/12/16 17:32 Pulse 90 11/12/16 21:36 Resp 20 11/12/16 21:36 BP 137/71 11/12/16 21:36 Pulse Ox 95 11/12/16 21:36 - Medical History PMH: Denies: Colonic Polyps, Fractures, Sleep Apnea, TIA - [facility] Procedures DETOXIFICATION SERVICES FOR SUBSTANCE ABUSE TREATMENT (08/01/16) INDIV PSYCHOTHERAPY FOR SUBSTANCE ABUSE TREATMENT, SUPPORT (08/01/16) INDIV PSYCHOTHERAPY FOR SUBSTANCE ABUSE, COGNITIV BEHAVIORAL (08/01/16) INDIV PSYCHOTHERAPY FOR SUBSTANCE ABUSE, PSYCHOEDUCATION (08/01/16) Family History: States: Unknown Family Hx - Social History Hx Alcohol Use: Yes Hx Substance Use: Yes (ALCOHOL) - Immunization History Hx Tetanus Toxoid Vaccination: No Hx Influenza Vaccination: No Hx Pneumococcal Vaccination: No Review Of Systems Cardiovascular: Negative for: Chest Pain, Palpitations Respiratory: Negative for: Shortness of Breath Neurological: Positive for: Seizures Physical Exam - Physical Exam Appears: Non-toxic, No Acute Distress, Other (writhing purposeful movements) Skin: Normal Color, Warm, Dry Head: Atraumatic, Normacephalic, No Other (no signs of head injury) Eye(s): bilateral: Normal Inspection Oral Mucosa: Moist Neck: Normal ROM, Supple Cardiovascular: Rhythm Regular, No Murmur Respiratory: Normal Breath Sounds, No Rales, No Rhonchi, No Wheezing Gastrointestinal/Abdominal: Soft, No Tenderness Neurological/Psych: No Oriented x3 (disoriented), Other (confused) ED Course And Treatment - Laboratory Results Result Diagrams: 11/12/16 17:50 11/12/16 17:50 O2 Sat by Pulse Oximetry: 100 (RA) Pulse Ox Interpretation: Normal Medical Decision Making Medical Decision Making: alcohol withdrawal seizures vs delerium tremens (2 days since abrupt d/c of heavy alcohol use) vs advanced dementia Disposition Doctor Will See Patient In The: Hospital Counseled Patient/Family Regarding: Studies Performed, Diagnosis - Disposition Disposition: HOSPITALIZED Disposition Time: 21:47 Condition: GOOD - Clinical Impression Clinical Impression: Tonic-clonic seizure, Alcohol withdrawal seizure, Delirium tremens - [place] Statement The provider has reviewed the documentation as recorded by the Juliana Whitney All medical record entries made by the Juliana were at my direction and personally dictated by me. I have reviewed the chart and agree that the record accurately reflects my personal performance of the history, physical exam, medical decision making, and the department course for this patient. I have also personally directed, reviewed, and agree with the discharge instructions and disposition.
[2016-11-12 18:16] LABS: WHITE BLOOD COUNT 12.6 K/uL (4.8-10.8)
[2016-11-12] MEDS ORDERED: Sodium Chloride 0.9% 1,000 ML IV ONE (18:58)
[2016-11-12] MEDS ORDERED: Multivitamin (MVI) 10 ML, Thiamine 100 MG, Folic Acid 1 MG in Sodium Chloride 0.9% 1,00... IV ONE (19:04)
--- NOTE | 2016-11-12 23:47 | CT ---
EXAM: CT Head Without Intravenous Contrast CLINICAL HISTORY: 66 years old, male; Signs and symptoms; Altered mental status/memory loss and syncope and collapse; Additional info: Seizure TECHNIQUE: Axial computed tomography images of the head/brain without intravenous contrast. This CT exam was performed using one or more of the following dose reduction techniques: automated exposure control, adjustment of the mA and/or kV according to patient size, and/or use of iterative reconstruction technique. Coronal and sagittal reformatted images were created and reviewed. COMPARISON: No relevant prior studies available. Examination is limited by significant amount of motion artifact. FINDINGS: Brain: No acute intracranial hemorrhage. Ventricles: Age-appropriate ventriculomegaly. Bones: No acute displaced fracture. Sinuses: Unremarkable as visualized. No acute sinusitis. Mastoid air cells: Unremarkable as visualized. No mastoid effusion. IMPRESSION: Limited examination secondary to motion artifact is without acute intracranial hemorrhage. Repeat examination, possibly with sedation is suggested.
--- NOTE | 2016-11-13 08:04 | RAD ---
PROCEDURE: CHEST RADIOGRAPH, 1 VIEW HISTORY: Seizure COMPARISON: None available. FINDINGS: LUNGS: Mild venous congestion. Small nodular density at the left lung base may represent prominent vessel on end versus small nodule and or granuloma. Right hilar prominence. Biapical pleural thickening with upper lobe granulomatous changes. PLEURA: No pneumothorax or pleural fluid seen. CARDIOVASCULAR: Normal. OSSEOUS STRUCTURES: No significant abnormalities. VISUALIZED UPPER ABDOMEN: Normal. OTHER FINDINGS: None. IMPRESSION: Mild venous congestion. Small nodular density at the left lung base may represent prominent vessel on end versus small nodule and or granuloma. Right hilar prominence. Biapical pleural thickening with upper lobe granulomatous changes.
[2016-11-13 08:15] LABS: RBC URINE < 1 /hpf (0-3); URINE BACTERIA RARE (<OCC); URINE BILIRUBIN NEGATIVE (NEGATIVE); URINE BLOOD NEGATIVE (NEGATIVE); URINE COLOR Straw (YELLOW); URINE GLUCOSE (UA) 1+ mg/dL (Normal); URINE KETONE 1+ mg/dL (NEGATIVE); URINE LEUKOCYTE ESTERASE NEG Leu/uL (Negative); URINE PROTEIN NEGATIVE (NEGATIVE); URINE UROBILINOGEN NORMAL mg/dL (0.2-1.0); WBC URINE 1 /hpf (0-5)
[2016-11-13 08:26] LABS: CHLORIDE 84 mmol/L (98-107); POTASSIUM 3.5 mmol/L (3.6-5.2)
[2016-11-13 08:28] LABS: CARBON DIOXIDE 24 mmol/L (22-30); CHOLESTEROL 152 mg/dL (0-199); GFR AFRICAN-AMERICAN > 60
[2016-11-13 08:29] LABS: BLOOD UREA NITROGEN 5 mg/dL (9-20); CALCIUM 8.5 mg/dl (8.6-10.4); GLUCOSE,RANDOM 104 mg/dL (75-110)
[2016-11-13 08:30] LABS: IRON 81 ug/dL (49-181)
[2016-11-13 08:41] LABS: SODIUM 119 mmol/L (132-148)
[2016-11-13 08:56] LABS: THYROID STIMULATING HORMONE 1.22 mIU/L (0.46-4.68)
[2016-11-13 09:02] LABS: HEMATOCRIT 35.1 % (35.0-51.0); MEAN CELL VOLUME 86.3 fL (80.0-94.0); MEAN CORPUSCULAR HEMOGLOBIN 30.9 pg (27.0-31.0); MEAN CORPUSCULAR HGB CONC 35.8 g/dL (33.0-37.0); RED CELL DISTRIBUTION WIDTH 12.7 % (11.5-14.5); WHITE BLOOD COUNT 10.1 K/uL (4.8-10.8)
[2016-11-13] MEDS ORDERED: Multivitamin (MVI) 10 ML, Thiamine 100 MG, Folic Acid 1 MG in Sodium Chloride 0.9% 1,00... IV ONE (09:15)
[2016-11-13 09:32] LABS: FOLATE 16.1 ng/mL
[2016-11-13] MEDS: Enoxaparin 40 mg Syringe SC SCH (10:14)
--- NOTE | 2016-11-13 11:21 | PCM.PSYCH ---
Initial Psychiatric Evaluation - Initial Psychiatric Evaluation Chief Complaint (in patient's own words): No c/c, he is uncommunicative History of Present Illness and Precipitating Events: The pt is seen, chart reviewed and case discussed. He is known to the movie writer from a consult in August 2016. Consult is requested by Dr. John for alcohol withdrawal. This is a 66 yo LM, , unemployed, lives with his . He came to ER for unknown reasons, likely due to alcohol abuse but had a GM seizure before being seen. He is given several ativan's and geodon (agitated) and transferred to medical floor Reporting Process Consultant spoke to his over the phone and she said that he had been drinking "a lot" since d/c from the last admission weeks ago No drugs No known medical issue No psych issues She did say that, however, he was getting confused and agitated easily Current Medications: Active Medications Generic Name Dose Route Start Last Admin Trade Name Freq PRN Reason Stop Dose Admin Acetaminophen 650 mg 11/13/16 08:31 11/13/16 08:56 Tylenol 650 Mg Supp UT 650 mg Q6 PRN Administration Fever >100.4 F Enoxaparin Sodium 40 mg 11/13/16 10:00 11/13/16 10:14 Lovenox SC 40 mg DAILY BRANDY Administration Famotidine 40 mg 11/13/16 10:00 11/13/16 10:13 Pepcid IVP 40 mg DAILY BRANDY Administration Gabapentin 300 mg 11/13/16 10:00 11/13/16 10:02 Neurontin PO Not Given BID BRANDY Multivitamins/Vitamin C 10 ml/ 1,011.2 mls @ 100 mls/hr 11/13/16 09:15 10:33 Thiamine HCl 100 mg/ Folic IV 11/13/16 19:21 100 mls/hr Acid 1 mg/ Sodium Chloride .Q10H7M ONE Administration Lorazepam 2 mg 11/13/16 11:17 Ativan IVP 11/17/16 11:14 Q6H BRANDY Taper Pneumococcal Polyvalent Vaccine 0.5 ml 11/15/16 10:00 Pneumovax 23 Vaccine IM 11/15/16 10:01 .ONCE ONE Past Psychiatric History - Past Psychiatric History Previous Treatment History: None Pertinent Medical Hx (Current Medical&Sleep Prob, Allergies): Allergies Allergy/AdvReac Type Severity Reaction Status Date / Time No Known Allergies Allergy Verified 11/06/16 07:23 Gabapentin [Neurontin] 300 mg PO BID #60 cap 08/05/16 Review of Systems - Review of Systems Systems not reviewed;Unavailable: Altered Mental Status (cannot assess, pt is unresponsive) Mental Status Examination - Personal Presentation Personal Presentation: Looks stated age - Affect Affect: Blunted - Motor Activity Motor Activity: Psychomotor Agitation - Reliability in Providing Information Reliability in Providing Information: Poor, due to cognitve impairment - Mood Mood: Other (unresponsive) - Formal Thought Process Formal Thought Process: Other (cannot assess) - Cognitive Functions Orientation: Situation (cannot assess) Sensorium: Lethargic Judgement: Intact, as evidence by: Other (cannot assess) Memory: Recent impaired, as evidenced by: Other (cannot assess) - Risk Risk: Seizure, Withdrawal, Diminished functioning - Strength & Assets Inventory Strength & Assets Inventory: Family support DSM 5 DX - DSM 5 DSM 5 Diagnosis: Alcohol use d/o - severe Delirium Tremens - Recommended/Plan of Treatment Treatment Recommendations and Plan of Treatment: Ativan taper IV, however, Dr. John wants to hold off on starting the taper b/ c the pt got big bolus of ativan already (in ED) and he is not opening his eyes and not communicating. However, he is still restless. Start ativan detox as soon as possible Vitamins Hydration Consider ICU transfer Monitor labs and vitals very closely Supportive measures Seizure precaution. Dilantin, keppra or gabapetin Refer to rehab or IOP Consider naltrexone after stabilization 31 min
[2016-11-13] MEDS: Piperacill/Tazo 3.375gm in Dex 3.375 GM/50 ML BAG IVPB SCH ×2 (14:17→21:15)
[2016-11-13 14:39] LABS: RBC URINE 2 /hpf (0-3); URINE BILIRUBIN NEGATIVE (NEGATIVE); URINE BLOOD NEGATIVE (NEGATIVE); URINE COLOR Straw (YELLOW); URINE GLUCOSE (UA) NORMAL (Normal); URINE KETONE 1+ mg/dL (NEGATIVE); URINE LEUKOCYTE ESTERASE NEG Leu/uL (Negative); URINE PROTEIN NEGATIVE (NEGATIVE); URINE UROBILINOGEN NORMAL mg/dL (0.2-1.0); WBC URINE 2 /hpf (0-5)
--- NOTE | 2016-11-13 19:02 | CP.PCM.HP ---
Past Patient History - Infectious Disease Hx of Infectious Diseases: None - Past Medical History & Family History Past Medical History?: No - Past Social History Smoking Status: Never Smoked - CARDIAC Hx Heart Attack: No - PULMONARY Hx Sleep Apnea: No - NEUROLOGICAL Hx Seizures: Yes (ETOH Related.) Hx Transient Ischemic Attacks (TIA): No - ENDOCRINE/METABOLIC Hx Hyperthyroidism: Yes - HEMATOLOGICAL/ONCOLOGICAL Hx Blood Transfusions: No - MUSCULOSKELETAL/RHEUMATOLOGICAL Hx Falls: Yes Other/Comment: Wrist Surgery. - GASTROINTESTINAL Hx Gastrointestinal Disorders: No - PSYCHIATRIC Hx Substance Use: No - SURGICAL HISTORY Hx Surgeries: No Hx Orthopedic Surgery: Yes (Wrist Surgery.) - ANESTHESIA Hx Anesthesia: Yes Hx Anesthesia Reactions: No Hx Malignant Hyperthermia: No Has any member of the family had a problem w/ anesthesia?: No Meds Allergies/Adverse Reactions: Allergies Allergy/AdvReac Type Severity Reaction Status Date / Time No Known Allergies Allergy Verified 11/06/16 07:23 Physical Exam - Constitutional Appears: Well - Head Exam Head Exam: ATRAUMATIC, NORMAL INSPECTION, NORMOCEPHALIC - Eye Exam Eye Exam: EOMI, Normal appearance, PERRL Pupil Exam: NORMAL ACCOMODATION, PERRL - ENT Exam ENT Exam: Mucous Membranes Moist, Normal Exam - Neck Exam Neck exam: Positive for: Normal Inspection - Respiratory Exam Respiratory Exam: Decreased Breath Sounds - Cardiovascular Exam Cardiovascular Exam: REGULAR RHYTHM, +S1, +S2 - GI/Abdominal Exam GI & Abdominal Exam: Diminished Bowel Sounds, Soft - Rectal Exam Rectal Exam: Deferred Results - Vital Signs Recent Vital Signs: Last Vital Signs Temp 98.4 F 11/13/16 15:52 Pulse 70 11/13/16 15:56 Resp 20 11/13/16 15:52 BP 151/82 H 11/13/16 15:52 Pulse Ox 98 11/13/16 15:52 - Labs Result Diagrams: 11/13/16 07:54 11/13/16 07:54 Labs: Laboratory Results - last 24 hr 11/13/16 11/13/16 11/13/16 07:18 07:18 07:54 WBC 10.1 RBC 4.07 L Hgb 12.6 Hct 35.1 MCV 86.3 D MCH 30.9 MCHC 35.8 RDW 12.7 Plt Count 160 MPV 8.0 Sodium Potassium Chloride Carbon Dioxide Anion Gap BUN Creatinine Est GFR ( Amer) Est GFR (Non-Af Amer) POC Glucose (mg/dL) Random Glucose Hemoglobin A1c Calcium Iron TIBC % Saturation Triglycerides Cholesterol LDL Cholesterol Direct HDL Cholesterol Vitamin B12 Folate TSH 3rd Generation Urine Color Straw Urine Clarity Clear Urine pH 7.0 Ur Specific [place] 1.009 Urine Protein Negative Urine Glucose (UA) 1+ H Urine Ketones 1+ H Urine Blood Negative Urine Nitrate Negative Urine Bilirubin Negative Urine Urobilinogen Normal Ur Leukocyte Esterase Neg Urine WBC (Auto) 1 Urine RBC (Auto) < 1 Ur Squamous Epith Cells < 1 Urine Bacteria Rare Urine Opiates Screen Negative Urine Methadone Screen Negative Ur Barbiturates Screen Negative Ur Phencyclidine Scrn Negative Ur Amphetamines Screen Negative U Benzodiazepines Scrn Negative U Oth Cocaine Metabols Negative U Cannabinoids Screen Negative 11/13/16 11/13/16 11/13/16 07:54 07:54 07:54 WBC RBC Hgb Hct MCV MCH MCHC RDW Plt Count MPV Sodium 119 L* Potassium 3.5 L Chloride 84 L Carbon Dioxide 24 Anion Gap 15 BUN 5 L Creatinine 0.5 L Est GFR ( Amer) > 60 Est GFR (Non-Af Amer) > 60 POC Glucose (mg/dL) Random Glucose 104 Hemoglobin A1c 5.8 Calcium 8.5 L Iron 81 TIBC 280 % Saturation 29 Triglycerides 58 Cholesterol 152 LDL Cholesterol Direct 67 HDL Cholesterol 74 H Vitamin B12 285 Folate 16.1 TSH 3rd Generation 1.22 Urine Color Urine Clarity Urine pH Ur Specific [place] Urine Protein Urine Glucose (UA) Urine Ketones Urine Blood Urine Nitrate Urine Bilirubin Urine Urobilinogen Ur Leukocyte Esterase Urine WBC (Auto) Urine RBC (Auto) Ur Squamous Epith Cells Urine Bacteria Urine Opiates Screen Urine Methadone Screen Ur Barbiturates Screen Ur Phencyclidine Scrn Ur Amphetamines Screen U Benzodiazepines Scrn U Oth Cocaine Metabols U Cannabinoids Screen 11/13/16 11/13/16 14:28 17:05 WBC RBC Hgb Hct MCV MCH MCHC RDW Plt Count MPV Sodium Potassium Chloride Carbon Dioxide Anion Gap BUN Creatinine Est GFR ( Amer) Est GFR (Non-Af Amer) POC Glucose (mg/dL) 95 Random Glucose Hemoglobin A1c Calcium Iron TIBC % Saturation Triglycerides Cholesterol LDL Cholesterol Direct HDL Cholesterol Vitamin B12 Folate TSH 3rd Generation Urine Color Straw Urine Clarity Clear Urine pH 7.0 Ur Specific [place] 1.008 Urine Protein Negative Urine Glucose (UA) Normal Urine Ketones 1+ H Urine Blood Negative Urine Nitrate Negative Urine Bilirubin Negative Urine Urobilinogen Normal Ur Leukocyte Esterase Neg Urine WBC (Auto) 2 Urine RBC (Auto) 2 Ur Squamous Epith Cells < 1 Urine Bacteria Urine Opiates Screen Urine Methadone Screen Ur Barbiturates Screen Ur Phencyclidine Scrn Ur Amphetamines Screen U Benzodiazepines Scrn U Oth Cocaine Metabols U Cannabinoids Screen
--- NOTE | 2016-11-13 19:18 | CARD ---
APPROVED REPORT EKG Measurement Heart [id number] <Conclusion> Sinus rhythm with 1st degree AV block Otherwise normal ECG
--- NOTE | 2016-11-13 23:00 | CP.PCM.CON ---
Past Patient History - Infectious Disease Hx of Infectious Diseases: None - Past Medical History & Family History Past Medical History?: No - Past Social History Smoking Status: Never Smoked - CARDIAC Hx Heart Attack: No - PULMONARY Hx Sleep Apnea: No - NEUROLOGICAL Hx Seizures: Yes (ETOH Related.) Hx Transient Ischemic Attacks (TIA): No - ENDOCRINE/METABOLIC Hx Hyperthyroidism: Yes - HEMATOLOGICAL/ONCOLOGICAL Hx Blood Transfusions: No - MUSCULOSKELETAL/RHEUMATOLOGICAL Hx Falls: Yes Other/Comment: Wrist Surgery. - GASTROINTESTINAL Hx Gastrointestinal Disorders: No - PSYCHIATRIC Hx Substance Use: No - SURGICAL HISTORY Hx Surgeries: No Hx Orthopedic Surgery: Yes (Wrist Surgery.) - ANESTHESIA Hx Anesthesia: Yes Hx Anesthesia Reactions: No Hx Malignant Hyperthermia: No Has any member of the family had a problem w/ anesthesia?: No Meds Allergies/Adverse Reactions: Allergies Allergy/AdvReac Type Severity Reaction Status Date / Time No Known Allergies Allergy Verified 11/06/16 07:23 - Medications Medications: Current Medications Acetaminophen (Tylenol 650 Mg Supp) 650 mg HI Q6 PRN PRN Reason: Fever >100.4 F Last Admin: 11/13/16 08:56 Dose: 650 mg Cyanocobalamin (Vitamin B12 1000 Mcg/Ml Inj) 1,000 mcg IM DAILY [facility] Enoxaparin Sodium (Lovenox) 40 mg SC DAILY [facility] Last Admin: 11/13/16 10:14 Dose: 40 mg Famotidine (Pepcid) 40 mg IVP DAILY [facility] Last Admin: 11/13/16 10:13 Dose: 40 mg Gabapentin (Neurontin) 300 mg PO BID [facility] Last Admin: 11/13/16 18:03 Dose: Not Given Piperacillin Sod/Tazobactam Sod (Zosyn 3.375 Gm Iv Premix) 3.375 gm in 50 mls @ 100 mls/hr IVPB Q8H [facility] Last Admin: 11/13/16 21:15 Dose: 100 mls/hr Lorazepam (Ativan) 2 mg IVP Q6H [facility] PRN Reason: Taper Stop: 11/17/16 11:14 Pneumococcal Polyvalent Vaccine (Pneumovax 23 Vaccine) 0.5 ml IM .ONCE ONE Stop: 11/15/16 10:01 Results - Vital Signs Recent Vital Signs: Last Vital Signs Temp 98.4 F 11/13/16 15:52 Pulse 70 11/13/16 15:56 Resp 20 11/13/16 15:52 BP 151/82 H 11/13/16 15:52 Pulse Ox 98 11/13/16 15:52 - Labs Result Diagrams: 11/13/16 07:54 11/13/16 07:54 Labs: Laboratory Results - last 24 hr 11/13/16 11/13/16 11/13/16 07:18 07:18 07:54 WBC 10.1 RBC 4.07 L Hgb 12.6 Hct 35.1 MCV 86.3 D MCH 30.9 MCHC 35.8 RDW 12.7 Plt Count 160 MPV 8.0 Sodium Potassium Chloride Carbon Dioxide Anion Gap BUN Creatinine Est GFR ( Amer) Est GFR (Non-Af Amer) POC Glucose (mg/dL) Random Glucose Hemoglobin A1c Calcium Iron TIBC % Saturation Triglycerides Cholesterol LDL Cholesterol Direct HDL Cholesterol Vitamin B12 Folate TSH 3rd Generation Urine Color Straw Urine Clarity Clear Urine pH 7.0 Ur Specific [place] 1.009 Urine Protein Negative Urine Glucose (UA) 1+ H Urine Ketones 1+ H Urine Blood Negative Urine Nitrate Negative Urine Bilirubin Negative Urine Urobilinogen Normal Ur Leukocyte Esterase Neg Urine WBC (Auto) 1 Urine RBC (Auto) < 1 Ur Squamous Epith Cells < 1 Urine Bacteria Rare Urine Opiates Screen Negative Urine Methadone Screen Negative Ur Barbiturates Screen Negative Ur Phencyclidine Scrn Negative Ur Amphetamines Screen Negative U Benzodiazepines Scrn Negative U Oth Cocaine Metabols Negative U Cannabinoids Screen Negative 11/13/16 11/13/16 11/13/16 07:54 07:54 07:54 WBC RBC Hgb Hct MCV MCH MCHC RDW Plt Count MPV Sodium 119 L* Potassium 3.5 L Chloride 84 L Carbon Dioxide 24 Anion Gap 15 BUN 5 L Creatinine 0.5 L Est GFR ( Amer) > 60 Est GFR (Non-Af Amer) > 60 POC Glucose (mg/dL) Random Glucose 104 Hemoglobin A1c 5.8 Calcium 8.5 L Iron 81 TIBC 280 % Saturation 29 Triglycerides 58 Cholesterol 152 LDL Cholesterol Direct 67 HDL Cholesterol 74 H Vitamin B12 285 Folate 16.1 TSH 3rd Generation 1.22 Urine Color Urine Clarity Urine pH Ur Specific [place] Urine Protein Urine Glucose (UA) Urine Ketones Urine Blood Urine Nitrate Urine Bilirubin Urine Urobilinogen Ur Leukocyte Esterase Urine WBC (Auto) Urine RBC (Auto) Ur Squamous Epith Cells Urine Bacteria Urine Opiates Screen Urine Methadone Screen Ur Barbiturates Screen Ur Phencyclidine Scrn Ur Amphetamines Screen U Benzodiazepines Scrn U Oth Cocaine Metabols U Cannabinoids Screen 11/13/16 11/13/16 11/13/16 14:28 17:05 21:29 WBC RBC Hgb Hct MCV MCH MCHC RDW Plt Count MPV Sodium Potassium Chloride Carbon Dioxide Anion Gap BUN Creatinine Est GFR ( Amer) Est GFR (Non-Af Amer) POC Glucose (mg/dL) 95 74 Random Glucose Hemoglobin A1c Calcium Iron TIBC % Saturation Triglycerides Cholesterol LDL Cholesterol Direct HDL Cholesterol Vitamin B12 Folate TSH 3rd Generation Urine Color Straw Urine Clarity Clear Urine pH 7.0 Ur Specific [place] 1.008 Urine Protein Negative Urine Glucose (UA) Normal Urine Ketones 1+ H Urine Blood Negative Urine Nitrate Negative Urine Bilirubin Negative Urine Urobilinogen Normal Ur Leukocyte Esterase Neg Urine WBC (Auto) 2 Urine RBC (Auto) 2 Ur Squamous Epith Cells < 1 Urine Bacteria Urine Opiates Screen Urine Methadone Screen Ur Barbiturates Screen Ur Phencyclidine Scrn Ur Amphetamines Screen U Benzodiazepines Scrn U Oth Cocaine Metabols U Cannabinoids Screen Assessment & Plan - Assessment and Plan (Free Text) Plan: Urine osmolality Serum osmolality CBC CMP Inferior serum sodium goes below 117 we will dialyze the patient's Continue 81 continue Lovenox Continue Neurontin Continue Pepcid Continue atenolol Continue on Zosyn Continue medications as ordered
[2016-11-13] MEDS ORDERED: Potassium Chloride 20 mEq ER Tab PO STA (23:02)
--- NOTE | 2016-11-13 23:35 | CON ---
REASON FOR CONSULTATION: Seizure. HISTORY OF PRESENT ILLNESS: The patient is 66-year-old male who was brought to the emergency room after he had a tonic clonic seizure. This was while he was in the waiting room. The patient was very agitated and confused after that. The patient came to the emergency room with unknown complaints. The patient is unable to give history, history is mainly from the chart. The patient was given about 12 mg of Ativan because patient was agitated. The patient apparently was drinking at home and recently stopped drinking alcohol. REVIEW OF SYSTEMS: Unable to obtain because of the patient's current mental status; however, patient is not having any cough, sputum production. PAST MEDICAL HISTORY: Unknown. CURRENT MEDICATIONS: Include Ativan p.r.n., Lovenox, multivitamin, thiamine, Neurontin, Pepcid, Tylenol. ALLERGIES: NO KNOWN DRUG ALLERGIES. FAMILY HISTORY: Unknown. SOCIAL HISTORY: Positive for alcohol use, unknown if he uses drugs, unknown for smoking history. PHYSICAL EXAMINATION GENERAL: The patient is an elderly male lying in the bed in no acute distress. VITAL SIGNS: His blood pressure is 138/79, heart rate is 93 per minute, his temperature is 100.5, breathing at the rate of 16 per minute. HEENT: Head is normocephalic, atraumatic. NECK: Supple. There are no carotid bruits. CARDIOPULMONARY: S1 and S2 audible. No murmurs. LUNGS: Clear. ABDOMEN: Soft and nontender with bowel sounds present. NEUROLOGIC: Mental Status: The patient is sleepy, but arousable with patient opens his eyes minimally on calling his name. He is not following commands. Cranial Nerve Examination: Pupils are 4 mm bilaterally, reactive to light. Visual aguayo are full to threat. Extraocular movements appear intact. There is no facial asymmetry. He is moving all 4 extremities symmetrically. Plantars downgoing bilaterally LABORATORY DATA: Reviewed showed WBC of 10.1, hemoglobin 12.6, hematocrit 35.1 and platelets 160. Sodium on admission was 129, today it is 119, potassium 3.5, chloride 84, carbon dioxide 24, BUN 5, creatinine 0.5, glucose of 104. His vitamin B12 is 285. His toxicology screening is negative. IMPRESSION: 1. Seizure likely secondary to alcohol withdrawal. 2. Hyponatremia, which may also be a contributing factor for seizure. 3. Vitamin B12 deficiency. RECOMMENDATIONS: 1. The patient to have MRI of the brain without contrast. 2. The patient will have an electroencephalogram. 3. We will hold off on any antiepileptic medication at present. 4. The patient to have vitamin B12 replacement. 5. Please continue supportive care and other treatment. Thank you for the opportunity to participate in the care of this patient. Champ Jaimes MD
--- NOTE | 2016-11-14 01:38 | CP.PCM.HP ---
History of Present Illness - History of Present Illness History of Present Illness: 11/13/16 History Of Present Illness 66 y/o male presents to the ED for after being found waiting with tonic/clonic seizure activity in the waiting room. Patient was immediately transported to bed 4 for immediate treatment. Pt appears to have post-ictal period, appeared to be confused. Patient had ambulated to ED for unknown complaints. History limited at this time. came to ED, states pt was drinking heavy for 2 days since discharge from hospital for same, then no liquor at all yesterday nor today- was increasingly agitated and difficult to manage @ home. Came to ED for eval. Present on Admission - Present on Admission Any Indicators Present on Admission: No Review of Systems - Review of Systems Systems not reviewed;Unavailable: Altered Mental Status, Intoxicated, Uncooperative - Constitutional Constitutional: As Per HPI - EENT Eyes: As Per HPI Ears: As Per HPI Nose/Mouth/Throat: As Per HPI - Cardiovascular Cardiovascular: As Per HPI - Respiratory Respiratory: As Per HPI - Gastrointestinal Gastrointestinal: As Per HPI - Musculoskeletal Musculoskeletal: As Per HPI - Integumentary Integumentary: As Per HPI - Neurological Neurological: As Per HPI - Psychiatric Psychiatric: As Per HPI - Endocrine Endocrine: As Per HPI - Hematologic/Lymphatic Hematologic: As Per HPI Past Patient History - Infectious Disease Hx of Infectious Diseases: None - Past Medical History & Family History Past Medical History?: No - Past Social History Smoking Status: Never Smoked - CARDIAC Hx Heart Attack: No - PULMONARY Hx Sleep Apnea: No - NEUROLOGICAL Hx Seizures: Yes (ETOH Related.) Hx Transient Ischemic Attacks (TIA): No - ENDOCRINE/METABOLIC Hx Hyperthyroidism: Yes - HEMATOLOGICAL/ONCOLOGICAL Hx Blood Transfusions: No - MUSCULOSKELETAL/RHEUMATOLOGICAL Hx Falls: Yes Other/Comment: Wrist Surgery. - GASTROINTESTINAL Hx Gastrointestinal Disorders: No - PSYCHIATRIC Hx Substance Use: No - SURGICAL HISTORY Hx Surgeries: No Hx Orthopedic Surgery: Yes (Wrist Surgery.) - ANESTHESIA Hx Anesthesia: Yes Hx Anesthesia Reactions: No Hx Malignant Hyperthermia: No Has any member of the family had a problem w/ anesthesia?: No Meds Allergies/Adverse Reactions: Allergies Allergy/AdvReac Type Severity Reaction Status Date / Time No Known Allergies Allergy Verified 11/06/16 07:23 Physical Exam - Constitutional Appears: Well, Toxic, Confused - Head Exam Head Exam: ATRAUMATIC, NORMAL INSPECTION, NORMOCEPHALIC - Eye Exam Eye Exam: EOMI, Normal appearance, PERRL Pupil Exam: NORMAL ACCOMODATION, PERRL - ENT Exam ENT Exam: Mucous Membranes Moist, Normal Exam - Neck Exam Neck exam: Positive for: Normal Inspection - Respiratory Exam Respiratory Exam: Clear to Auscultation Bilateral, NORMAL BREATHING PATTERN - Cardiovascular Exam Cardiovascular Exam: REGULAR RHYTHM - GI/Abdominal Exam GI & Abdominal Exam: Normal Bowel Sounds, Soft. absent: Tenderness - Rectal Exam Rectal Exam: NORMAL INSPECTION - Exam Exam: Circumcision, NORMAL INSPECTION External exam: NORMAL EXTERNAL EXAM Speculum exam: NORMAL SPECULUM EXAM Bimanual exam: NORMAL BIMANUAL EXAM - Extremities Exam Extremities exam: Positive for: normal inspection - Back Exam Back exam: NORMAL INSPECTION - Neurological Exam Neurological exam: Alert, CN II-XII Intact, Normal Gait, Oriented x3, Reflexes Normal - Psychiatric Exam Psychiatric exam: Normal Affect, Normal Mood - Skin Skin Exam: Dry, Intact, Normal Color, Warm Results - Vital Signs Recent Vital Signs: Last Vital Signs Temp 99.1 F 11/13/16 23:25 Pulse 75 11/13/16 23:25 Resp 20 11/13/16 23:25 BP 132/77 11/13/16 23:25 Pulse Ox 99 11/13/16 23:25 - Labs Result Diagrams: 11/13/16 07:54 11/13/16 07:54 Labs: Laboratory Results - last 24 hr 11/13/16 11/13/16 11/13/16 07:18 07:18 07:54 WBC 10.1 RBC 4.07 L Hgb 12.6 Hct 35.1 MCV 86.3 D MCH 30.9 MCHC 35.8 RDW 12.7 Plt Count 160 MPV 8.0 Sodium Potassium Chloride Carbon Dioxide Anion Gap BUN Creatinine Est GFR ( Amer) Est GFR (Non-Af Amer) POC Glucose (mg/dL) Random Glucose Hemoglobin A1c Calcium Iron TIBC % Saturation Triglycerides Cholesterol LDL Cholesterol Direct HDL Cholesterol Vitamin B12 Folate TSH 3rd Generation Urine Color Straw Urine Clarity Clear Urine pH 7.0 Ur Specific [place] 1.009 Urine Protein Negative Urine Glucose (UA) 1+ H Urine Ketones 1+ H Urine Blood Negative Urine Nitrate Negative Urine Bilirubin Negative Urine Urobilinogen Normal Ur Leukocyte Esterase Neg Urine WBC (Auto) 1 Urine RBC (Auto) < 1 Ur Squamous Epith Cells < 1 Urine Bacteria Rare Urine Opiates Screen Negative Urine Methadone Screen Negative Ur Barbiturates Screen Negative Ur Phencyclidine Scrn Negative Ur Amphetamines Screen Negative U Benzodiazepines Scrn Negative U Oth Cocaine Metabols Negative U Cannabinoids Screen Negative 11/13/16 11/13/16 11/13/16 07:54 07:54 07:54 WBC RBC Hgb Hct MCV MCH MCHC RDW Plt Count MPV Sodium 119 L* Potassium 3.5 L Chloride 84 L Carbon Dioxide 24 Anion Gap 15 BUN 5 L Creatinine 0.5 L Est GFR ( Amer) > 60 Est GFR (Non-Af Amer) > 60 POC Glucose (mg/dL) Random Glucose 104 Hemoglobin A1c 5.8 Calcium 8.5 L Iron 81 TIBC 280 % Saturation 29 Triglycerides 58 Cholesterol 152 LDL Cholesterol Direct 67 HDL Cholesterol 74 H Vitamin B12 285 Folate 16.1 TSH 3rd Generation 1.22 Urine Color Urine Clarity Urine pH Ur Specific [place] Urine Protein Urine Glucose (UA) Urine Ketones Urine Blood Urine Nitrate Urine Bilirubin Urine Urobilinogen Ur Leukocyte Esterase Urine WBC (Auto) Urine RBC (Auto) Ur Squamous Epith Cells Urine Bacteria Urine Opiates Screen Urine Methadone Screen Ur Barbiturates Screen Ur Phencyclidine Scrn Ur Amphetamines Screen U Benzodiazepines Scrn U Oth Cocaine Metabols U Cannabinoids Screen 11/13/16 11/13/16 11/13/16 14:28 17:05 21:29 WBC RBC Hgb Hct MCV MCH MCHC RDW Plt Count MPV Sodium Potassium Chloride Carbon Dioxide Anion Gap BUN Creatinine Est GFR ( Amer) Est GFR (Non-Af Amer) POC Glucose (mg/dL) 95 74 Random Glucose Hemoglobin A1c Calcium Iron TIBC % Saturation Triglycerides Cholesterol LDL Cholesterol Direct HDL Cholesterol Vitamin B12 Folate TSH 3rd Generation Urine Color Straw Urine Clarity Clear Urine pH 7.0 Ur Specific [place] 1.008 Urine Protein Negative Urine Glucose (UA) Normal Urine Ketones 1+ H Urine Blood Negative Urine Nitrate Negative Urine Bilirubin Negative Urine Urobilinogen Normal Ur Leukocyte Esterase Neg Urine WBC (Auto) 2 Urine RBC (Auto) 2 Ur Squamous Epith Cells < 1 Urine Bacteria Urine Opiates Screen Urine Methadone Screen Ur Barbiturates Screen Ur Phencyclidine Scrn Ur Amphetamines Screen U Benzodiazepines Scrn U Oth Cocaine Metabols U Cannabinoids Screen Assessment & Plan - Assessment and Plan (Free Text) Assessment: Ativan taper IV, however, wants to hold off on starting the taper b/c the pt got big bolus of ativan already (in ED) and he is not opening his eyes and not communicating. However, he is still restless. Start ativan detox as soon as possible Vitamins Hydration Consider ICU transfer , will put consult Monitor labs and vitals very closely Supportive measures Seizure precaution. Dilantin, keppra or gabapetin Refer to rehab or IOP Consider naltrexone after stabilization t has severe hyponatremia, which may be another reason why he is delirious and it can trigger more confusion, seizures and even coma. Plan: waiting input from neuro . d/d with psyche
--- NOTE | 2016-11-14 03:23 | CP.PCM.CON ---
History of Present Illness - History of Present Illness History of Present Illness: Patient was admitted by the attending to the ICU. But there was no ICU consult was called. The nurse called me today. There was a concern about altered mental status. Upon arrival patient is on one-to-one observation. Patient is awake and responding. He is answering simple questions only. He is moving all 4 extremities. No shaking noted. Patient vital signs are stable. Temp Pulse Resp BP Pulse Ox 99.1 F 75 20 132/77 99 11/13/16 23:25 11/13/16 23:25 11/13/16 23:25 11/13/16 23:25 11/13/16 23:25 Good air entry. Regular heart sound. Nontender abdomen. Patient's labs which was done this morning noted, there was a reduced sodium level noted in the blood. There was no repeat sodium level yet done. Patient's a sodium level should be monitored. If it is extremely low call for ICU evaluation. At this moment the patient is hemodynamically stable, no need for ICU monitoring Past Patient History - Infectious Disease Hx of Infectious Diseases: None - Past Medical History & Family History Past Medical History?: No - Past Social History Smoking Status: Never Smoked - CARDIAC Hx Heart Attack: No - PULMONARY Hx Sleep Apnea: No - NEUROLOGICAL Hx Seizures: Yes (ETOH Related.) Hx Transient Ischemic Attacks (TIA): No - ENDOCRINE/METABOLIC Hx Hyperthyroidism: Yes - HEMATOLOGICAL/ONCOLOGICAL Hx Blood Transfusions: No - MUSCULOSKELETAL/RHEUMATOLOGICAL Hx Falls: Yes Other/Comment: Wrist Surgery. - GASTROINTESTINAL Hx Gastrointestinal Disorders: No - PSYCHIATRIC Hx Substance Use: No - SURGICAL HISTORY Hx Surgeries: No Hx Orthopedic Surgery: Yes (Wrist Surgery.) - ANESTHESIA Hx Anesthesia: Yes Hx Anesthesia Reactions: No Hx Malignant Hyperthermia: No Has any member of the family had a problem w/ anesthesia?: No Meds Allergies/Adverse Reactions: Allergies Allergy/AdvReac Type Severity Reaction Status Date / Time No Known Allergies Allergy Verified 11/06/16 07:23 - Medications Medications: Current Medications Acetaminophen (Tylenol 650 Mg Supp) 650 mg [place] Q6 PRN PRN Reason: Fever >100.4 F Last Admin: 11/13/16 08:56 Dose: 650 mg Cyanocobalamin (Vitamin B12 1000 Mcg/Ml Inj) 1,000 mcg IM DAILY [facility] Enoxaparin Sodium (Lovenox) 40 mg SC DAILY [facility] Last Admin: 11/13/16 10:14 Dose: 40 mg Famotidine (Pepcid) 40 mg IVP DAILY [facility] Last Admin: 11/13/16 10:13 Dose: 40 mg Gabapentin (Neurontin) 300 mg PO BID [facility] Last Admin: 11/13/16 18:03 Dose: Not Given Piperacillin Sod/Tazobactam Sod (Zosyn 3.375 Gm Iv Premix) 3.375 gm in 50 mls @ 100 mls/hr IVPB Q8H [facility] Last Admin: 11/13/16 21:15 Dose: 100 mls/hr Potassium Chloride (Potassium Chloride 20 Meq/100 Ml) 20 meq in 100 mls @ 50 mls/hr IVPB Q2H [facility] Stop: 11/14/16 05:59 Last Admin: 11/14/16 02:05 Dose: 50 mls/hr Lorazepam (Ativan) 2 mg IVP Q6H [facility] PRN Reason: Taper Stop: 11/17/16 11:14 Pneumococcal Polyvalent Vaccine (Pneumovax 23 Vaccine) 0.5 ml IM .ONCE ONE Stop: 11/15/16 10:01 Results - Vital Signs Recent Vital Signs: Last Vital Signs Temp 99.1 F 11/13/16 23:25 Pulse 75 11/13/16 23:25 Resp 20 11/13/16 23:25 BP 132/77 11/13/16 23:25 Pulse Ox 99 11/13/16 23:25 - Labs Result Diagrams: 11/13/16 07:54 11/13/16 07:54 Labs: Laboratory Results - last 24 hr 11/13/16 11/13/16 11/13/16 07:18 07:18 07:54 WBC 10.1 RBC 4.07 L Hgb 12.6 Hct 35.1 MCV 86.3 D MCH 30.9 MCHC 35.8 RDW 12.7 Plt Count 160 MPV 8.0 Sodium Potassium Chloride Carbon Dioxide Anion Gap BUN Creatinine Est GFR ( Amer) Est GFR (Non-Af Amer) POC Glucose (mg/dL) Random Glucose Hemoglobin A1c Calcium Iron TIBC % Saturation Triglycerides Cholesterol LDL Cholesterol Direct HDL Cholesterol Vitamin B12 Folate TSH 3rd Generation Urine Color Straw Urine Clarity Clear Urine pH 7.0 Ur Specific [place] 1.009 Urine Protein Negative Urine Glucose (UA) 1+ H Urine Ketones 1+ H Urine Blood Negative Urine Nitrate Negative Urine Bilirubin Negative Urine Urobilinogen Normal Ur Leukocyte Esterase Neg Urine WBC (Auto) 1 Urine RBC (Auto) < 1 Ur Squamous Epith Cells < 1 Urine Bacteria Rare Urine Opiates Screen Negative Urine Methadone Screen Negative Ur Barbiturates Screen Negative Ur Phencyclidine Scrn Negative Ur Amphetamines Screen Negative U Benzodiazepines Scrn Negative U Oth Cocaine Metabols Negative U Cannabinoids Screen Negative 11/13/16 11/13/16 11/13/16 07:54 07:54 07:54 WBC RBC Hgb Hct MCV MCH MCHC RDW Plt Count MPV Sodium 119 L* Potassium 3.5 L Chloride 84 L Carbon Dioxide 24 Anion Gap 15 BUN 5 L Creatinine 0.5 L Est GFR ( Amer) > 60 Est GFR (Non-Af Amer) > 60 POC Glucose (mg/dL) Random Glucose 104 Hemoglobin A1c 5.8 Calcium 8.5 L Iron 81 TIBC 280 % Saturation 29 Triglycerides 58 Cholesterol 152 LDL Cholesterol Direct 67 HDL Cholesterol 74 H Vitamin B12 285 Folate 16.1 TSH 3rd Generation 1.22 Urine Color Urine Clarity Urine pH Ur Specific [place] Urine Protein Urine Glucose (UA) Urine Ketones Urine Blood Urine Nitrate Urine Bilirubin Urine Urobilinogen Ur Leukocyte Esterase Urine WBC (Auto) Urine RBC (Auto) Ur Squamous Epith Cells Urine Bacteria Urine Opiates Screen Urine Methadone Screen Ur Barbiturates Screen Ur Phencyclidine Scrn Ur Amphetamines Screen U Benzodiazepines Scrn U Oth Cocaine Metabols U Cannabinoids Screen 11/13/16 11/13/16 11/13/16 14:28 17:05 21:29 WBC RBC Hgb Hct MCV MCH MCHC RDW Plt Count MPV Sodium Potassium Chloride Carbon Dioxide Anion Gap BUN Creatinine Est GFR ( Amer) Est GFR (Non-Af Amer) POC Glucose (mg/dL) 95 74 Random Glucose Hemoglobin A1c Calcium Iron TIBC % Saturation Triglycerides Cholesterol LDL Cholesterol Direct HDL Cholesterol Vitamin B12 Folate TSH 3rd Generation Urine Color Straw Urine Clarity Clear Urine pH 7.0 Ur Specific [place] 1.008 Urine Protein Negative Urine Glucose (UA) Normal Urine Ketones 1+ H Urine Blood Negative Urine Nitrate Negative Urine Bilirubin Negative Urine Urobilinogen Normal Ur Leukocyte Esterase Neg Urine WBC (Auto) 2 Urine RBC (Auto) 2 Ur Squamous Epith Cells < 1 Urine Bacteria Urine Opiates Screen Urine Methadone Screen Ur Barbiturates Screen Ur Phencyclidine Scrn Ur Amphetamines Screen U Benzodiazepines Scrn U Oth Cocaine Metabols U Cannabinoids Screen
--- NOTE | 2016-11-14 04:07 | CP.PCM.CON ---
History of Present Illness - History of Present Illness History of Present Illness: infectious disease consult; HPI ; .66-year-old male who presented to the ER on 11/12/16. As reported patient had a tonic-clonic seizure activity in the waiting room. As per notes patient has been drinking heavily for 2 days prior to admission since discharge Hospital for the same. Then no drink one day prior to admission. Patient reports he was very agitated and difficult to manage at home so brought to the ER for evaluation. Patient seen on the general medical floor. Patient confused but arousable and responds intermittently. Infectious disease consultation requested by PMD as patient was found to have low-grade fevers off 100.1 -100.5. Also patient had leukocytosis. Patient was found to be severely hyponatremic with sodium of 119. Chest x-ray on admission showed chronic granulomatous lung disease with upper lung changes seen. history is limited as patient unable to give details. allergies; NKA. PMH: Denies: Colonic Polyps, Fractures, Sleep Apnea, TIA - [facility] Procedures DETOXIFICATION SERVICES FOR SUBSTANCE ABUSE TREATMENT (08/01/16) INDIV PSYCHOTHERAPY FOR SUBSTANCE ABUSE TREATMENT, SUPPORT (08/01/16) INDIV PSYCHOTHERAPY FOR SUBSTANCE ABUSE, [facility] (08/01/16) INDIV PSYCHOTHERAPY FOR SUBSTANCE ABUSE, PSYCHOEDUCATION (08/01/16) Family History: States: Unknown Family Hx - Social History Hx Alcohol Use: Yes Hx Substance Use: Yes (ALCOHOL) - Immunization History Hx Tetanus Toxoid Vaccination: No Hx Influenza Vaccination: No Hx Pneumococcal Vaccination: No Review of Systems - Review of Systems Systems not reviewed;Unavailable: Altered Mental Status Past Patient History - Infectious Disease Hx of Infectious Diseases: None - Past Medical History & Family History Past Medical History?: No - Past Social History Smoking Status: Never Smoked - CARDIAC Hx Heart Attack: No - PULMONARY Hx Sleep Apnea: No - NEUROLOGICAL Hx Seizures: Yes (ETOH Related.) Hx Transient Ischemic Attacks (TIA): No - ENDOCRINE/METABOLIC Hx Hyperthyroidism: Yes - HEMATOLOGICAL/ONCOLOGICAL Hx Blood Transfusions: No - MUSCULOSKELETAL/RHEUMATOLOGICAL Hx Falls: Yes Other/Comment: Wrist Surgery. - GASTROINTESTINAL Hx Gastrointestinal Disorders: No - PSYCHIATRIC Hx Substance Use: No - SURGICAL HISTORY Hx Surgeries: No Hx Orthopedic Surgery: Yes (Wrist Surgery.) - ANESTHESIA Hx Anesthesia: Yes Hx Anesthesia Reactions: No Hx Malignant Hyperthermia: No Has any member of the family had a problem w/ anesthesia?: No Meds Allergies/Adverse Reactions: Allergies Allergy/AdvReac Type Severity Reaction Status Date / Time No Known Allergies Allergy Verified 11/06/16 07:23 - Medications Medications: Current Medications Acetaminophen (Tylenol 650 Mg Supp) 650 mg [place] Q6 PRN PRN Reason: Fever >100.4 F Last Admin: 11/13/16 08:56 Dose: 650 mg Cyanocobalamin (Vitamin B12 1000 Mcg/Ml Inj) 1,000 mcg IM DAILY [facility] Enoxaparin Sodium (Lovenox) 40 mg SC DAILY [facility] Last Admin: 11/13/16 10:14 Dose: 40 mg Famotidine (Pepcid) 40 mg IVP DAILY [facility] Last Admin: 11/13/16 10:13 Dose: 40 mg Gabapentin (Neurontin) 300 mg PO BID [facility] Last Admin: 11/13/16 18:03 Dose: Not Given Piperacillin Sod/Tazobactam Sod (Zosyn 3.375 Gm Iv Premix) 3.375 gm in 50 mls @ 100 mls/hr IVPB Q8H [facility] Last Admin: 11/13/16 21:15 Dose: 100 mls/hr Potassium Chloride (Potassium Chloride 20 Meq/100 Ml) 20 meq in 100 mls @ 50 mls/hr IVPB Q2H [facility] Stop: 11/14/16 05:59 Last Admin: 11/14/16 02:05 Dose: 50 mls/hr Lorazepam (Ativan) 2 mg IVP Q6H [facility] PRN Reason: Taper Stop: 11/17/16 11:14 Pneumococcal Polyvalent Vaccine (Pneumovax 23 Vaccine) 0.5 ml IM .ONCE ONE Stop: 11/15/16 10:01 Physical Exam - Constitutional Appears: No Acute Distress, Agitated, Confused - Head Exam Head Exam: NORMAL INSPECTION - Eye Exam Eye Exam: PERRL, Scleral icterus - ENT Exam ENT Exam: Mucous Membranes Dry - Neck Exam Neck exam: Positive for: Normal Inspection. Negative for: Meningismus - Respiratory Exam Respiratory Exam: Decreased Breath Sounds, NORMAL BREATHING PATTERN - Cardiovascular Exam Cardiovascular Exam: REGULAR RHYTHM, +S1, +S2 - GI/Abdominal Exam GI & Abdominal Exam: Normal Bowel Sounds, Soft. absent: Organomegaly - Extremities Exam Extremities exam: Positive for: pedal pulses present. Negative for: calf tenderness, pedal edema - Neurological Exam Neurological exam: Altered, Reflexes Normal (MOVES ALL EXTREMITIES) - Skin Skin Exam: Normal Color, Warm Results - Vital Signs Recent Vital Signs: Last Vital Signs Temp 99.1 F 11/13/16 23:25 Pulse 75 11/13/16 23:25 Resp 20 11/13/16 23:25 BP 132/77 11/13/16 23:25 Pulse Ox 99 11/13/16 23:25 - Labs Result Diagrams: 11/13/16 07:54 11/13/16 07:54 Labs: Laboratory Results - last 24 hr 11/13/16 11/13/16 11/13/16 07:18 07:18 07:54 WBC 10.1 RBC 4.07 L Hgb 12.6 Hct 35.1 MCV 86.3 D MCH 30.9 MCHC 35.8 RDW 12.7 Plt Count 160 MPV 8.0 Sodium Potassium Chloride Carbon Dioxide Anion Gap BUN Creatinine Est GFR ( Amer) Est GFR (Non-Af Amer) POC Glucose (mg/dL) Random Glucose Hemoglobin A1c Calcium Iron TIBC % Saturation Triglycerides Cholesterol LDL Cholesterol Direct HDL Cholesterol Vitamin B12 Folate TSH 3rd Generation Urine Color Straw Urine Clarity Clear Urine pH 7.0 Ur Specific [place] 1.009 Urine Protein Negative Urine Glucose (UA) 1+ H Urine Ketones 1+ H Urine Blood Negative Urine Nitrate Negative Urine Bilirubin Negative Urine Urobilinogen Normal Ur Leukocyte Esterase Neg Urine WBC (Auto) 1 Urine RBC (Auto) < 1 Ur Squamous Epith Cells < 1 Urine Bacteria Rare Urine Opiates Screen Negative Urine Methadone Screen Negative Ur Barbiturates Screen Negative Ur Phencyclidine Scrn Negative Ur Amphetamines Screen Negative U Benzodiazepines Scrn Negative U Oth Cocaine Metabols Negative U Cannabinoids Screen Negative 11/13/16 11/13/16 11/13/16 07:54 07:54 07:54 WBC RBC Hgb Hct MCV MCH MCHC RDW Plt Count MPV Sodium 119 L* Potassium 3.5 L Chloride 84 L Carbon Dioxide 24 Anion Gap 15 BUN 5 L Creatinine 0.5 L Est GFR ( Amer) > 60 Est GFR (Non-Af Amer) > 60 POC Glucose (mg/dL) Random Glucose 104 Hemoglobin A1c 5.8 Calcium 8.5 L Iron 81 TIBC 280 % Saturation 29 Triglycerides 58 Cholesterol 152 LDL Cholesterol Direct 67 HDL Cholesterol 74 H Vitamin B12 285 Folate 16.1 TSH 3rd Generation 1.22 Urine Color Urine Clarity Urine pH Ur Specific [place] Urine Protein Urine Glucose (UA) Urine Ketones Urine Blood Urine Nitrate Urine Bilirubin Urine Urobilinogen Ur Leukocyte Esterase Urine WBC (Auto) Urine RBC (Auto) Ur Squamous Epith Cells Urine Bacteria Urine Opiates Screen Urine Methadone Screen Ur Barbiturates Screen Ur Phencyclidine Scrn Ur Amphetamines Screen U Benzodiazepines Scrn U Oth Cocaine Metabols U Cannabinoids Screen 11/13/16 11/13/16 11/13/16 14:28 17:05 21:29 WBC RBC Hgb Hct MCV MCH MCHC RDW Plt Count MPV Sodium Potassium Chloride Carbon Dioxide Anion Gap BUN Creatinine Est GFR ( Amer) Est GFR (Non-Af Amer) POC Glucose (mg/dL) 95 74 Random Glucose Hemoglobin A1c Calcium Iron TIBC % Saturation Triglycerides Cholesterol LDL Cholesterol Direct HDL Cholesterol Vitamin B12 Folate TSH 3rd Generation Urine Color Straw Urine Clarity Clear Urine pH 7.0 Ur Specific [place] 1.008 Urine Protein Negative Urine Glucose (UA) Normal Urine Ketones 1+ H Urine Blood Negative Urine Nitrate Negative Urine Bilirubin Negative Urine Urobilinogen Normal Ur Leukocyte Esterase Neg Urine WBC (Auto) 2 Urine RBC (Auto) 2 Ur Squamous Epith Cells < 1 Urine Bacteria Urine Opiates Screen Urine Methadone Screen Ur Barbiturates Screen Ur Phencyclidine Scrn Ur Amphetamines Screen U Benzodiazepines Scrn U Oth Cocaine Metabols U Cannabinoids Screen Assessment & Plan (1) Fever, low grade Assessment and Plan: PANCULTURES. START iv zOSYN 3.370 EVERY 8 HOURLY. 11/13/16 FOLLOW-UP CHEST X-RAY. kEEP HEAD ELEVATED TO PREVENT ASPIRATION. Status: Acute (2) Alcohol withdrawal seizure Assessment and Plan: MONITOR LFTS. nEUROLOGY ON BOARD. Status: Acute (3) Delirium tremens Status: Acute (4) Acute hyponatremia Assessment and Plan: SODIUM PRESENTLY 119. RENAL ON BOARD. ICU EVAL NOTED. Status: Acute
[2016-11-14] MEDS: Piperacill/Tazo 3.375gm in Dex 3.375 GM/50 ML BAG IVPB SCH ×3 (06:19→21:30)
[2016-11-14 07:48] LABS: BASO % 0.3 % (0.0-2.0); HEMATOCRIT 37.4 % (35.0-51.0); LYMPH # 0.7 K/uL (1.0-4.3); LYMPH % 12.7 % (20.0-40.0); MEAN CELL VOLUME 86.6 fL (80.0-94.0); MEAN CORPUSCULAR HEMOGLOBIN 31.1 pg (27.0-31.0); MEAN CORPUSCULAR HGB CONC 35.9 g/dL (33.0-37.0); MEAN PLATELET VOLUME 8.4 fL (7.2-11.7); MONO # 0.5 K/uL (0.0-0.8); MONO % 9.7 % (0.0-10.0); RED CELL DISTRIBUTION WIDTH 12.7 % (11.5-14.5); WHITE BLOOD COUNT 5.6 K/uL (4.8-10.8)
[2016-11-14] MEDS: Sodium Chloride 0.9% 1,000 ML IV SCH (08:28)
[2016-11-14 08:42] LABS: ALB/GLOB RATIO 1.3 (1.0-2.1); ALKALINE PHOSPHATASE 74 U/L (38-126); ALT/SGPT 47 U/L (21-72); AST/SGOT 163 U/L (17-59); BILIRUBIN,TOTAL 2.8 mg/dL (0.2-1.3); BLOOD UREA NITROGEN 5 mg/dL (9-20); CALCIUM 8.6 mg/dl (8.6-10.4); CARBON DIOXIDE 23 mmol/L (22-30); CHLORIDE 89 mmol/L (98-107); GFR AFRICAN-AMERICAN > 60; GLUCOSE,RANDOM 99 mg/dL (75-110); POTASSIUM 3.9 mmol/L (3.6-5.2); SODIUM 127 mmol/L (132-148); TOTAL PROTEIN 7.1 g/dL (6.3-8.3)
[2016-11-14] MEDS: Enoxaparin 40 mg Syringe SC SCH (09:51)
[2016-11-14] MEDS ORDERED: Ferric Sodium Gluconat Complex 62.5 mg/5 ml Vial IVPB SCH (10:00)
--- NOTE | 2016-11-14 12:51 | PN ---
SUBJECTIVE: The patient is lying on the bed, in no acute distress. Denies having any headache. PHYSICAL EXAMINATION: VITAL SIGNS: His blood pressure is 144/81, heart rate is 68 per minute, breathing at a rate 16 per minute, and temperature is 99 degrees Fahrenheit. HEENT: Head is normocephalic, atraumatic. NECK: Supple. There are no carotid bruits. LUNGS: Clear. CARDIOVASCULAR: S1 and S2 audible. No murmurs. ABDOMEN: Soft, nontender. Bowel sounds are present. NEUROLOGY: Mental Status: The patient is awake, alert, and oriented to place. He follows simple commands. Cranial Nerve Examination: Pupils are 4 mm bilaterally, reactive to light. Visual aguayo are full. Extraocular movements are intact. There is no facial asymmetry. He is moving all 4 extremities symmetrically. Plantars downgoing bilaterally. No gross dysmetria is seen. IMPRESSION: 1. Status post seizure, likely secondary to alcohol withdrawal. 2. Hyponatremia. 3. Vitamin B12 deficiency. RECOMMENDATIONS: 1. The patient had no further episode of seizure. 2. The patient to have MRI of the brain. 3. The patient also to have an electroencephalogram. 4. The patient's sodium is little better, it is 127. 5. The patient to have vitamin B12 replacement. 6. No antiepileptic medication is indicated at present. 7. Please continue other treatment and supportive care. Thank you for the opportunity to participate in the care of this patient. Champ Jaimes MD
--- NOTE | 2016-11-14 12:58 | PCM.PYCHPN ---
Psychiatric Progress Note - Psychiatric Progress Note Patient seen today, length of contact: 16 min Patient Chief Complaint: No c/c, He is still uncommunicative Problems Identified/Issues Discussed: The pt is seen, chart reviewed and case discussed. As per notes he has more lucid times but is still delirious. No ativan yet but improving slowly Spoke to his Will continue to monitor and follow Medication Change: No Medical Record Reviewed: Yes Mental Status Examination - Cognitive Function Orientation: Situation (cannot assess) Memory: Impaired Attention: Poor Concentration: Poor - Mood Mood: Other (unresponsive) - Affect Affect: Blunted - Formal Thought Process Formal Thought Process: Other (cannot assess) Goal/Treatment Plan - Goal/Treatment Plan Need for Continued Stay: Other (medical treatment) Progress Toward Problem(s) and Goals/Treatment Plan: Ativan taper IV, on hold per Dr. John Start ativan detox as soon as possible Vitamins Hydration Monitor labs and vitals very closely Supportive measures Seizure precaution. Dilantin, keppra or gabapetin Refer to rehab or IOP Consider naltrexone after stabilization
--- NOTE | 2016-11-14 16:29 | CP.PCM.PN ---
Subjective - Date & Time of Evaluation Date of Evaluation: 11/14/16 Time of Evaluation: 11:20 - Subjective Subjective: clinically same Objective - Vital Signs/Intake and Output Vital Signs (last 24 hours): Temp Pulse Resp BP Pulse Ox 99.0 F 88 20 144/81 97 11/14/16 03:00 11/14/16 16:02 11/14/16 03:00 11/14/16 03:00 11/14/16 03:00 Intake and Output: 11/14/16 11/14/16 06:59 18:59 Intake Total 550 800 Balance 550 800 - Medications Medications: Current Medications Acetaminophen (Tylenol 650 Mg Supp) 650 mg [place] Q6 PRN PRN Reason: Fever >100.4 F Last Admin: 11/13/16 08:56 Dose: 650 mg Cyanocobalamin (Vitamin B12 1000 Mcg/Ml Inj) 1,000 mcg IM DAILY [facility] Last Admin: 11/14/16 09:51 Dose: 1,000 mcg Enoxaparin Sodium (Lovenox) 40 mg SC DAILY [facility] Last Admin: 11/14/16 09:51 Dose: 40 mg Famotidine (Pepcid) 40 mg IVP DAILY [facility] Last Admin: 11/14/16 09:51 Dose: 40 mg Gabapentin (Neurontin) 300 mg PO BID [facility] Last Admin: 11/14/16 09:40 Dose: Not Given Piperacillin Sod/Tazobactam Sod (Zosyn 3.375 Gm Iv Premix) 3.375 gm in 50 mls @ 100 mls/hr IVPB Q8H [facility] Last Admin: 11/14/16 14:16 Dose: 100 mls/hr Sodium Chloride (Sodium Chloride 0.9%) 1,000 mls @ 100 mls/hr IV .Q10H [facility] Last Admin: 11/14/16 08:28 Dose: 100 mls/hr Lorazepam (Ativan) 2 mg IVP Q8H [facility] PRN Reason: Taper Stop: 11/17/16 11:14 Pneumococcal Polyvalent Vaccine (Pneumovax 23 Vaccine) 0.5 ml IM .ONCE ONE Stop: 11/15/16 10:01 - Labs Labs: 11/14/16 07:33 11/14/16 07:33 - Constitutional Appears: Well - Head Exam Head Exam: ATRAUMATIC, NORMAL INSPECTION, NORMOCEPHALIC - Eye Exam Eye Exam: EOMI, Normal appearance, PERRL Pupil Exam: NORMAL ACCOMODATION, PERRL - ENT Exam ENT Exam: Mucous Membranes Moist, Normal Exam - Neck Exam Neck Exam: Full ROM, Normal Inspection. absent: Lymphadenopathy - Respiratory Exam Respiratory Exam: Decreased Breath Sounds - Cardiovascular Exam Cardiovascular Exam: REGULAR RHYTHM, +S1, +S2 - GI/Abdominal Exam GI & Abdominal Exam: Soft, Diminished Bowel Sounds - Rectal Exam Rectal Exam: Deferred
[2016-11-14 20:22] LABS: HEMATOCRIT 38.5 % (35.0-51.0); MONO # 0.9 K/uL (0.0-0.8)
[2016-11-14 20:28] LABS: CHLORIDE 92 mmol/L (98-107); POTASSIUM 3.5 mmol/L (3.6-5.2); SODIUM 128 mmol/L (132-148)
[2016-11-14 20:30] LABS: BILIRUBIN,TOTAL 2.6 mg/dL (0.2-1.3); GFR AFRICAN-AMERICAN > 60
[2016-11-14 20:31] LABS: ALB/GLOB RATIO 1.3 (1.0-2.1); ALKALINE PHOSPHATASE 70 U/L (38-126); ALT/SGPT 69 U/L (21-72); AST/SGOT 198 U/L (17-59); BLOOD UREA NITROGEN 7 mg/dL (9-20); CARBON DIOXIDE 20 mmol/L (22-30); GLUCOSE,RANDOM 85 mg/dL (75-110)
[2016-11-14 20:32] LABS: CALCIUM 8.6 mg/dl (8.6-10.4)
[2016-11-14 20:51] LABS: BASO % 0.4 % (0.0-2.0); EOS % 0.1 % (0.0-4.0); LYMPH % 10.7 % (20.0-40.0); MEAN CELL VOLUME 86.8 fL (80.0-94.0); MEAN CORPUSCULAR HEMOGLOBIN 30.9 pg (27.0-31.0); MEAN CORPUSCULAR HGB CONC 35.6 g/dL (33.0-37.0); MEAN PLATELET VOLUME 8.2 fL (7.2-11.7); MONO % 9.8 % (0.0-10.0); RED CELL DISTRIBUTION WIDTH 12.9 % (11.5-14.5); WHITE BLOOD COUNT 8.9 K/uL (4.8-10.8)
[2016-11-15] MEDS: Sodium Chloride 0.9% 1,000 ML IV SCH ×3 (03:00→23:14)
[2016-11-15] MEDS: Piperacill/Tazo 3.375gm in Dex 3.375 GM/50 ML BAG IVPB SCH ×3 (05:43→21:26)
[2016-11-15] MEDS ORDERED: Dextrose 50% SYRINGE Inj (50 ml) IV STA (07:20)
[2016-11-15] MEDS: Enoxaparin 40 mg Syringe SC SCH (09:20)
[2016-11-15] MEDS ORDERED: Pneumococcal 23-Valent Vaccine IM ONE (10:00)
--- NOTE | 2016-11-15 11:06 | CP.PCM.PN ---
Subjective - Date & Time of Evaluation Date of Evaluation: 11/15/16 Time of Evaluation: 10:00 - Subjective Subjective: Progess not disctatd [id number] Objective - Vital Signs/Intake and Output Vital Signs (last 24 hours): Temp Pulse Resp BP Pulse Ox 97.8 F 60 18 145/87 100 11/15/16 08:42 11/15/16 08:42 11/15/16 08:42 11/15/16 08:42 11/14/16 23:30 - Medications Medications: Current Medications Acetaminophen (Tylenol 650 Mg Supp) 650 mg [place] Q6 PRN PRN Reason: Fever >100.4 F Last Admin: 11/13/16 08:56 Dose: 650 mg Cyanocobalamin (Vitamin B12 1000 Mcg/Ml Inj) 1,000 mcg IM DAILY [facility] Last Admin: 11/15/16 09:20 Dose: 1,000 mcg Enoxaparin Sodium (Lovenox) 40 mg SC DAILY [facility] Last Admin: 11/15/16 09:20 Dose: 40 mg Famotidine (Pepcid) 40 mg IVP DAILY [facility] Last Admin: 11/15/16 09:19 Dose: 40 mg Gabapentin (Neurontin) 300 mg PO BID [facility] Last Admin: 11/15/16 09:20 Dose: Not Given Piperacillin Sod/Tazobactam Sod (Zosyn 3.375 Gm Iv Premix) 3.375 gm in 50 mls @ 100 mls/hr IVPB Q8H [facility] Last Admin: 11/15/16 05:43 Dose: 100 mls/hr Sodium Chloride (Sodium Chloride 0.9%) 1,000 mls @ 100 mls/hr IV .Q10H [facility] Last Admin: 11/15/16 04:35 Dose: 100 mls/hr Lorazepam (Ativan) 2 mg IVP Q8H [facility] PRN Reason: Taper Stop: 11/17/16 11:14 - Labs Labs: 11/14/16 07:33 11/14/16 07:33 Assessment and Plan - Assessment and Plan (Free Text) Assessment: f Plan: ff
--- NOTE | 2016-11-15 11:41 | PN ---
DATE: 11/15/2016 SUBJECTIVE: The patient is lying on the bed, in no acute distress, not having any headache or dizziness. PHYSICAL EXAMINATION: VITAL SIGNS: His blood pressure is 145/87, heart rate is 60 per minute, breathing at a rate 16 per minute, and temperature is 97.8 degrees Fahrenheit. HEENT: Head is normocephalic and atraumatic. NECK: Supple. There are no carotid bruits. LUNGS: Clear. CARDIOVASCULAR: S1 and S2 audible. No murmurs. ABDOMEN: Soft, nontender. Bowel sounds are present. NEUROLOGY: Mental Status: The patient is awake, alert, and oriented to time, place and person. Speech is fluent. Naming and repetition are normal. Memory examination are intact. Cranial Nerve Examination: Pupils are 3 mm bilaterally, reactive to light. Visual aguayo are full. Extraocular movements are intact. There is no facial asymmetry. Palate is upgoing bilaterally, and tongue is midline. Motor Examination: Tone is normal, and power is 5/5 bilaterally and all extremity reflexes 1+ and symmetrical. Plantars downgoing bilaterally. IMPRESSION: 1. Status post seizure, likely secondary to alcohol withdrawal. 2. Hyponatremia. 3. Vitamin B12 deficiency. RECOMMENDATIONS: 1. The patient had an electroencephalogram done which is normal. 2. The patient has not had MRI of the brain as of yet. 3. The patient to have vitamin B12 replacement. 4. The patient had no further episode of seizure. 5. The patient is more alert and awake. 6. Please continue thiamine and multivitamin. 7. The patient to have physical therapy for gait and balance. 8. Please continue other treatment and supportive care. Thank you for the opportunity to participate in the care of this patient. Champ Jaimes MD
--- NOTE | 2016-11-15 13:46 | PCM.PYCHPN ---
Psychiatric Progress Note - Psychiatric Progress Note Patient seen today, length of contact: 18 min Patient Chief Complaint: "I'm OK" Problems Identified/Issues Discussed: The pt is seen, chart reviewed and case discussed. packing line worker staff used. He is no longer delirious. He is now talking and answering questions He said he wants to go home but he is not ready yet. He is oriented and has 3/3 in immediate recall but 0/3 in 5-minute recall. Attention is poor. No SI, HI or AVH/del. After care discussed - he needs to go to but ALSO some IOP or better an inpatient rehab. He seemingly agreed. Medication Change: No Medical Record Reviewed: Yes Mental Status Examination - Cognitive Function Orientation: Person, Place, Situation, Time Memory: Impaired Attention: Poor Concentration: Poor Association: WNL Fund of Knowledge: Poor - Mood Mood: Anxious - Affect Affect: Constricted - Speech Speech: Slurred - Formal Thought Process Formal Thought Process: No Impairment - Suicidal Ideation Suicidal Ideation: No - Homicidal Ideation Homicidal Ideation: No Goal/Treatment Plan - Goal/Treatment Plan Need for Continued Stay: Other (medical treatment) Progress Toward Problem(s) and Goals/Treatment Plan: Ativan taper IV, on hold per Dr. John Vitamins Hydration Monitor labs and vitals very closely Supportive measures Refer to rehab or IOP Consider naltrexone after stabilization
--- NOTE | 2016-11-15 17:57 | CP.PCM.PN ---
Subjective - Date & Time of Evaluation Date of Evaluation: 11/15/16 Time of Evaluation: 10:20 - Subjective Subjective: clinically same Objective - Vital Signs/Intake and Output Vital Signs (last 24 hours): Temp Pulse Resp BP Pulse Ox 97.9 F 64 18 146/87 100 11/15/16 15:14 11/15/16 15:14 11/15/16 15:14 11/15/16 15:14 11/14/16 23:30 - Medications Medications: Current Medications Acetaminophen (Tylenol 650 Mg Supp) 650 mg [place] Q6 PRN PRN Reason: Fever >100.4 F Last Admin: 11/13/16 08:56 Dose: 650 mg Cyanocobalamin (Vitamin B12 1000 Mcg/Ml Inj) 1,000 mcg IM DAILY [facility] Last Admin: 11/15/16 09:20 Dose: 1,000 mcg Enoxaparin Sodium (Lovenox) 40 mg SC DAILY [facility] Last Admin: 11/15/16 09:20 Dose: 40 mg Famotidine (Pepcid) 40 mg IVP DAILY [facility] Last Admin: 11/15/16 09:19 Dose: 40 mg Gabapentin (Neurontin) 300 mg PO BID [facility] Last Admin: 11/15/16 17:24 Dose: Not Given Piperacillin Sod/Tazobactam Sod (Zosyn 3.375 Gm Iv Premix) 3.375 gm in 50 mls @ 100 mls/hr IVPB Q8H [facility] Last Admin: 11/15/16 13:39 Dose: 100 mls/hr Sodium Chloride (Sodium Chloride 0.9%) 1,000 mls @ 100 mls/hr IV .Q10H [facility] Last Admin: 11/15/16 04:35 Dose: 100 mls/hr Lorazepam (Ativan) 2 mg IVP Q12H [facility] PRN Reason: Taper Stop: 11/17/16 11:14 - Labs Labs: 11/14/16 07:33 11/14/16 07:33 - Constitutional Appears: Well - Head Exam Head Exam: ATRAUMATIC, NORMAL INSPECTION, NORMOCEPHALIC - Eye Exam Eye Exam: EOMI, Normal appearance, PERRL Pupil Exam: NORMAL ACCOMODATION, PERRL - ENT Exam ENT Exam: Mucous Membranes Moist, Normal Exam - Neck Exam Neck Exam: Full ROM, Normal Inspection. absent: Lymphadenopathy - Respiratory Exam Respiratory Exam: Decreased Breath Sounds - Cardiovascular Exam Cardiovascular Exam: REGULAR RHYTHM, +S1, +S2 - GI/Abdominal Exam GI & Abdominal Exam: Soft, Diminished Bowel Sounds - Rectal Exam Rectal Exam: Deferred
--- NOTE | 2016-11-15 23:37 | CP.PCM.PN ---
Subjective - Date & Time of Evaluation Date of Evaluation: 11/15/16 Time of Evaluation: 23:37 - Subjective Subjective: CHIEF COMPLAINTS TODAY : afebrile, Feels better,more awake States wants to go home ROS. HEENT : N. Resp : No cough, wheezing ,pleuritic CP ,or hemoptysis Cardio : No anginal CP, PND, orthopnea, palpitation GI : No abd.pain, n/v ,diarrhea or GI bleeding . SQL ENGINEER : No headache, vertigo, focal deficit. Musculoskel : No joint swelling , Derm : No rash Psych : Normal affect. Ext : No swelling ,calf pain PE. Pt. is alert awake in no distress. V.S As noted in the chart Head ,ear nose,throat and eyes : Normal. Neck : Supple with normal carotids. Lungs: Clear air entry. Heart : S1 & S2 normal with S4. No murmur. Abd : Soft non tender with normal bowel sounds. Neuro : Moves all ext. with no localized deficit. Ext : No edema with intact pulses.Non tender calves Derm : No rashes or decubitus ulcer. LABS/RADIOLOGY: reviewed Urine culture +ve ENTEROCOCCUS FAECALIS. S -AMPICILLIN/cIPRO. LFTS -IMPROVING. Objective - Vital Signs/Intake and Output Vital Signs (last 24 hours): Temp Pulse Resp BP Pulse Ox 97.9 F 67 18 146/87 100 11/15/16 15:14 11/15/16 16:00 11/15/16 15:14 11/15/16 15:14 11/14/16 23:30 Intake and Output: 11/15/16 11/16/16 18:59 06:59 Intake Total 1120 Output Total 656 Balance 464 - Medications Medications: Current Medications Acetaminophen (Tylenol 650 Mg Supp) 650 mg [place] Q6 PRN PRN Reason: Fever >100.4 F Last Admin: 11/13/16 08:56 Dose: 650 mg Cyanocobalamin (Vitamin B12 1000 Mcg/Ml Inj) 1,000 mcg IM DAILY [facility] Last Admin: 11/15/16 09:20 Dose: 1,000 mcg Enoxaparin Sodium (Lovenox) 40 mg SC DAILY [facility] Last Admin: 11/15/16 09:20 Dose: 40 mg Famotidine (Pepcid) 40 mg IVP DAILY [facility] Last Admin: 11/15/16 09:19 Dose: 40 mg Gabapentin (Neurontin) 300 mg PO BID [facility] Last Admin: 11/15/16 21:26 Dose: 300 mg Piperacillin Sod/Tazobactam Sod (Zosyn 3.375 Gm Iv Premix) 3.375 gm in 50 mls @ 100 mls/hr IVPB Q8H [facility] Last Admin: 11/15/16 21:26 Dose: 100 mls/hr Sodium Chloride (Sodium Chloride 0.9%) 1,000 mls @ 100 mls/hr IV .Q10H [facility] Last Admin: 11/15/16 04:35 Dose: 100 mls/hr Lorazepam (Ativan) 2 mg IVP Q12H [facility] PRN Reason: Taper Stop: 11/17/16 11:14 - Labs Labs: 11/14/16 07:33 11/14/16 07:33 Assessment and Plan (1) Fever, low grade Assessment & Plan: BLOOD CULTURES NEGATIVE GROWTH TO DATE uRINE CULTURE POSITIVE FOR eNTEROCOCCUS FAECALIS. CONTINUE iv ZOSYN 3.375 EVERY 8 HOURLY FOR NOW. cAN SWITCH TO BY MOUTH AUGMENTIN 875 TWICE A DAY FOR 5 DAYS WHEN STABLE Status: Acute (2) Alcohol withdrawal seizure Status: Acute (3) Delirium tremens Assessment & Plan: pATIENT MORE AWAKE AND RESPONSIVE. sTILL ON ONE-TO-ONE WATCH PER PSYCHIATRIST. Status: Acute (4) Acute hyponatremia Assessment & Plan: SODIUM 128. iv FLUIDS PER pmd. Status: Acute
--- NOTE | 2016-11-16 00:13 | CP.PCM.PN ---
Subjective - Date & Time of Evaluation Date of Evaluation: 11/15/16 Time of Evaluation: 09:00 - Subjective Subjective: .66-year-old male who presented to the ER on 11/12/16. As reported patient had a tonic-clonic seizure activity in the waiting room. As per notes patient has been drinking heavily for 2 days prior to admission since discharge [facility] for [facility]. Then no drink one day prior to admission. Patient reports he was very agitated and difficult to manage at home so brought to the ER for evaluation. Patient seen on the general medical floor. Patient confused but arousable and responds intermittently. Objective - Vital Signs/Intake and Output Vital Signs (last 24 hours): Temp Pulse Resp BP Pulse Ox 97.9 F 67 18 146/87 100 11/15/16 15:14 11/15/16 16:00 11/15/16 15:14 11/15/16 15:14 11/14/16 23:30 Intake and Output: 11/15/16 11/16/16 18:59 06:59 Intake Total 1120 Output Total 656 Balance 464 - Medications Medications: Current Medications Acetaminophen (Tylenol 650 Mg Supp) 650 mg [place] Q6 PRN PRN Reason: Fever >100.4 F Last Admin: 11/13/16 08:56 Dose: 650 mg Cyanocobalamin (Vitamin B12 1000 Mcg/Ml Inj) 1,000 mcg IM DAILY [facility] Last Admin: 11/15/16 09:20 Dose: 1,000 mcg Enoxaparin Sodium (Lovenox) 40 mg SC DAILY [facility] Last Admin: 11/15/16 09:20 Dose: 40 mg Famotidine (Pepcid) 40 mg IVP DAILY [facility] Last Admin: 11/15/16 09:19 Dose: 40 mg Gabapentin (Neurontin) 300 mg PO BID [facility] Last Admin: 11/15/16 21:26 Dose: 300 mg Piperacillin Sod/Tazobactam Sod (Zosyn 3.375 Gm Iv Premix) 3.375 gm in 50 mls @ 100 mls/hr IVPB Q8H [facility] Last Admin: 11/15/16 21:26 Dose: 100 mls/hr Sodium Chloride (Sodium Chloride 0.9%) 1,000 mls @ 100 mls/hr IV .Q10H [facility] Last Admin: 11/15/16 04:35 Dose: 100 mls/hr Lorazepam (Ativan) 2 mg IVP Q12H [facility] PRN Reason: Taper Stop: 11/17/16 11:14 - Labs Labs: 11/14/16 07:33 11/14/16 07:33 - Constitutional Appears: Well - Head Exam Head Exam: ATRAUMATIC, NORMAL INSPECTION, NORMOCEPHALIC - Eye Exam Eye Exam: EOMI, Normal appearance, PERRL Pupil Exam: NORMAL ACCOMODATION, PERRL - ENT Exam ENT Exam: Mucous Membranes Moist, Normal Exam - Neck Exam Neck Exam: Full ROM, Normal Inspection. absent: Lymphadenopathy - Respiratory Exam Respiratory Exam: Clear to Ausculation Bilateral, NORMAL BREATHING PATTERN - Cardiovascular Exam Cardiovascular Exam: REGULAR RHYTHM, +S1, +S2. absent: Murmur - GI/Abdominal Exam GI & Abdominal Exam: Soft, Normal Bowel Sounds. absent: Tenderness - Rectal Exam Rectal Exam: NORMAL INSPECTION - Exam Exam: Circumcision, NORMAL INSPECTION External exam: NORMAL EXTERNAL EXAM Speculum exam: NORMAL SPECULUM EXAM Bimanual exam: NORMAL BIMANUAL EXAM - Extremities Exam Extremities Exam: Full ROM, Normal Capillary Refill, Normal Inspection. absent : Joint Swelling, Pedal Edema - Back Exam Back Exam: NORMAL INSPECTION - Neurological Exam Neurological Exam: Alert, Awake, CN II-XII Intact, Normal Gait, Oriented x3 - Psychiatric Exam Psychiatric exam: Normal Affect, Normal Mood - Skin Skin Exam: Dry, Intact, Normal Color, Warm
[2016-11-16 00:41] VITALS: RESP 20
--- NOTE | 2016-11-16 02:12 | CP.PCM.PN ---
Subjective - Date & Time of Evaluation Date of Evaluation: 11/14/16 Time of Evaluation: 02:00 - Subjective Subjective: .66-year-old male who presented to the ER on 11/12/16. As reported patient had a tonic-clonic seizure activity in the waiting room. As per notes patient has been drinking heavily for 2 days prior to admission since discharge Hospital for the same. Then no drink one day prior to admission. Patient reports he was very agitated and difficult to manage at home so brought to the ER for evaluation. Patient seen on the general medical floor. Patient confused but arousable and responds intermittently. Objective - Vital Signs/Intake and Output Vital Signs (last 24 hours): Temp Pulse Resp BP Pulse Ox 98.1 F 81 20 152/94 H 96 11/15/16 23:20 11/15/16 23:20 11/15/16 23:20 11/15/16 23:20 11/15/16 23:20 Intake and Output: 11/15/16 11/16/16 18:59 06:59 Intake Total 1120 Output Total 656 Balance 464 - Medications Medications: Current Medications Acetaminophen (Tylenol 650 Mg Supp) 650 mg [place] Q6 PRN PRN Reason: Fever >100.4 F Last Admin: 11/13/16 08:56 Dose: 650 mg Cyanocobalamin (Vitamin B12 1000 Mcg/Ml Inj) 1,000 mcg IM DAILY [facility] Last Admin: 11/15/16 09:20 Dose: 1,000 mcg Enoxaparin Sodium (Lovenox) 40 mg SC DAILY [facility] Last Admin: 11/15/16 09:20 Dose: 40 mg Famotidine (Pepcid) 40 mg IVP DAILY [facility] Last Admin: 11/15/16 09:19 Dose: 40 mg Gabapentin (Neurontin) 300 mg PO BID [facility] Last Admin: 11/15/16 21:26 Dose: 300 mg Piperacillin Sod/Tazobactam Sod (Zosyn 3.375 Gm Iv Premix) 3.375 gm in 50 mls @ 100 mls/hr IVPB Q8H [facility] Last Admin: 11/15/16 21:26 Dose: 100 mls/hr Sodium Chloride (Sodium Chloride 0.9%) 1,000 mls @ 100 mls/hr IV .Q10H [facility] Last Admin: 11/15/16 04:35 Dose: 100 mls/hr Lorazepam (Ativan) 2 mg IVP Q12H [facility] PRN Reason: Taper Stop: 11/17/16 11:14 - Labs Labs: 11/14/16 07:33 11/14/16 07:33 - Constitutional Appears: Well - Head Exam Head Exam: ATRAUMATIC, NORMAL INSPECTION, NORMOCEPHALIC - Eye Exam Eye Exam: EOMI, Normal appearance, PERRL Pupil Exam: PERRL - ENT Exam ENT Exam: Mucous Membranes Moist, Normal Exam - Neck Exam Neck Exam: Normal Inspection. absent: Lymphadenopathy - Respiratory Exam Respiratory Exam: Clear to Ausculation Bilateral, NORMAL BREATHING PATTERN - Cardiovascular Exam Cardiovascular Exam: REGULAR RHYTHM, +S1, +S2. absent: Murmur - GI/Abdominal Exam GI & Abdominal Exam: Soft, Normal Bowel Sounds. absent: Tenderness - Rectal Exam Rectal Exam: NORMAL INSPECTION - Exam Exam: Circumcision, NORMAL INSPECTION External exam: NORMAL EXTERNAL EXAM Speculum exam: NORMAL SPECULUM EXAM Bimanual exam: NORMAL BIMANUAL EXAM - Extremities Exam Extremities Exam: Full ROM, Normal Capillary Refill, Normal Inspection. absent : Joint Swelling, Pedal Edema - Back Exam Back Exam: NORMAL INSPECTION - Neurological Exam Additional comments: sleepy - Psychiatric Exam Psychiatric exam: Normal Affect, Normal Mood - Skin Skin Exam: Dry, Intact, Normal Color, Warm Assessment and Plan - Assessment and Plan (Free Text) Assessment: Assessment & Plan (1) Fever, low grade Assessment and Plan: PANCULTURES. START iv zOSYN 3.370 EVERY 8 HOURLY. 11/13/16 FOLLOW-UP CHEST X-RAY. kEEP HEAD ELEVATED TO PREVENT ASPIRATION. Status: Acute (2) Alcohol withdrawal seizure Assessment and Plan: MONITOR LFTS. nEUROLOGY ON BOARD. Status: Acute (3) Delirium tremens Status: Acute (4) Acute hyponatremia Assessment and Plan: SODIUM PRESENTLY 119. RENAL ON BOARD. ICU EVAL NOTED. Status: Acute
[2016-11-16] MEDS: Sodium Chloride 0.9% 1,000 ML IV SCH ×2 (02:59→10:39)
--- NOTE | 2016-11-16 06:09 | PN ---
DATE: SUBJECTIVE: The patient is seen and examined on the bedside, sleepy, arousable. He will just wake up and then again he will go to sleep in room 121. No nausea, vomiting or diarrhea. No hematuria. No hematochezia. No swelling of leg. No chest pain or palpitation. Actually, the patient is not able to give full review of system. PHYSICAL EXAMINATION: VITAL SIGNS: Blood pressure 145/85, heart rate 60, respiratory rate 16 and temperature 97.8. HEENT: Head is normocephalic and atraumatic. Eyes, PERRLA. Extraocular muscles intact. Conjunctivae clear. Nose patent. Mucous membranes moist. NECK: Supple. No carotid bruit. No JVD or thyromegaly. CHEST: Bilaterally symmetrical. HEART: S1 and S2, positive. LUNGS: Clear to auscultation. ABDOMEN: Soft. Bowel sounds are present. No organomegaly. EXTREMITIES: No edema and no cyanosis. NEUROLOGIC: The patient is sleepy, arousable. Moving all four extremities. MEDICATIONS: Ativan, Lovenox, Neurontin, Pepcid, iron, Lantus, Tylenol, vitamin B12, and Zosyn. LABORATORY DATA: White blood cell 5.6, hemoglobin 13.4, hematocrit 37.4 and platelets 173. Glucose 130, 192, 85, and 92. Ketones are positive. Glucose are positive. ASSESSMENT AND PLAN: Mr. Yossi Gibbons is 66 years old male with history of leukocytosis, improved. Hyperglycemia, ketonuria. Tox screening is negative, came with seizures, electrolyte imbalance. Dr. Whitney, GI consult call to fix electrolytes. Seen by psychiatrist Dr. Gaye Cornelius. Gastrointestinal and deep venous thrombosis prophylaxis. Give lowest dose of Ativan, vitamin, hydration, fix electrolytes, supportive measure as per the rehab IOP. Seen by psychiatrist, and infectious disease, and delinquent tax collector assistant. Status post seizure likely secondary to alcohol withdrawal, hyponatremia, B12 deficiency. Continue vitamins. Need to get MRI of the brain, but the patient is not cooperative. Need B12. We will start neurology and psychiatrist on the case. We will follow. Carolyn John MD [facility]
[2016-11-16] MEDS: Piperacill/Tazo 3.375gm in Dex 3.375 GM/50 ML BAG IVPB SCH ×3 (06:12→21:40)
[2016-11-16 06:20] LABS: HEMATOCRIT 37.7 % (35.0-51.0); MEAN CELL VOLUME 87.5 fL (80.0-94.0); MEAN CORPUSCULAR HGB CONC 35.4 g/dL (33.0-37.0); MEAN PLATELET VOLUME 7.8 fL (7.2-11.7); RED CELL DISTRIBUTION WIDTH 13.1 % (11.5-14.5); WHITE BLOOD COUNT 6.4 K/uL (4.8-10.8)
[2016-11-16 06:29] LABS: ALB/GLOB RATIO 1.4 (1.0-2.1); ALKALINE PHOSPHATASE 52 U/L (38-126); ALT/SGPT 69 U/L (21-72); AST/SGOT 180 U/L (17-59); BILIRUBIN,DIRECT 0.2 mg/dL (0.0-0.4); BILIRUBIN,TOTAL 1.4 mg/dL (0.2-1.3); BLOOD UREA NITROGEN 8 mg/dL (9-20); CALCIUM 8.4 mg/dl (8.6-10.4); CARBON DIOXIDE 26 mmol/L (22-30); CHLORIDE 99 mmol/L (98-107); GFR AFRICAN-AMERICAN > 60; GLUCOSE,RANDOM 93 mg/dL (75-110); POTASSIUM 3.3 mmol/L (3.6-5.2); SODIUM 133 mmol/L (132-148); TOTAL PROTEIN 6.2 g/dL (6.3-8.3)
[2016-11-16] MEDS: Enoxaparin 40 mg Syringe SC SCH (09:38)
--- NOTE | 2016-11-16 10:25 | EEG ---
DATE: INTRODUCTION: This is a digitally recorded EEG monitoring using standard EEG montages. Background rhythm of the EEG shows a background activity of 8 Hz alpha activity in parieto-occipital region. The EEG activity is bilaterally symmetrical and synchronous. There is attenuation of the background and eye opening. Drowsiness was noted by slowing of the background activity. Small amount of myogenic artifact noticed in this EEG recording. Abnormal potentials; no spike, sharp waves, or focal slowing was seen. Photic stimulation and hyperventilation. Photic stimulation did not reveal any abnormality. Hyperventilation was not performed. IMPRESSION: Normal electroencephalogram. No epileptiform activity is seen in this EEG. Champ Jaimes MD
--- NOTE | 2016-11-16 11:41 | CP.PCM.PN ---
Subjective - Date & Time of Evaluation Date of Evaluation: 11/16/16 Time of Evaluation: 11:20 - Subjective Subjective: clinically same Objective - Vital Signs/Intake and Output Vital Signs (last 24 hours): Temp Pulse Resp BP Pulse Ox 98.5 F 80 20 144/84 99 11/16/16 08:41 11/16/16 08:41 11/16/16 08:41 11/16/16 08:41 11/16/16 08:41 Intake and Output: 11/16/16 11/16/16 06:59 18:59 Intake Total 1120 Output Total 656 Balance 464 - Medications Medications: Current Medications Acetaminophen (Tylenol 650 Mg Supp) 650 mg [place] Q6 PRN PRN Reason: Fever >100.4 F Last Admin: 11/13/16 08:56 Dose: 650 mg Cyanocobalamin (Vitamin B12 1000 Mcg/Ml Inj) 1,000 mcg IM DAILY [facility] Last Admin: 11/16/16 09:39 Dose: 1,000 mcg Enoxaparin Sodium (Lovenox) 40 mg SC DAILY [facility] Last Admin: 11/16/16 09:38 Dose: 40 mg Famotidine (Pepcid) 40 mg IVP DAILY [facility] Last Admin: 11/16/16 09:39 Dose: 40 mg Gabapentin (Neurontin) 300 mg PO BID [facility] Last Admin: 11/16/16 09:38 Dose: 300 mg Piperacillin Sod/Tazobactam Sod (Zosyn 3.375 Gm Iv Premix) 3.375 gm in 50 mls @ 100 mls/hr IVPB Q8H [facility] Last Admin: 11/16/16 06:12 Dose: 100 mls/hr Sodium Chloride (Sodium Chloride 0.9%) 1,000 mls @ 100 mls/hr IV .Q10H [facility] Last Admin: 11/16/16 10:39 Dose: Not Given - Labs Labs: 11/16/16 06:11 11/16/16 06:11 - Constitutional Appears: Well - Head Exam Head Exam: ATRAUMATIC, NORMAL INSPECTION, NORMOCEPHALIC - Eye Exam Eye Exam: EOMI, Normal appearance, PERRL Pupil Exam: NORMAL ACCOMODATION, PERRL - ENT Exam ENT Exam: Mucous Membranes Moist, Normal Exam - Neck Exam Neck Exam: Full ROM, Normal Inspection. absent: Lymphadenopathy - Respiratory Exam Respiratory Exam: Decreased Breath Sounds - Cardiovascular Exam Cardiovascular Exam: REGULAR RHYTHM, +S1, +S2 - GI/Abdominal Exam GI & Abdominal Exam: Soft, Diminished Bowel Sounds - Rectal Exam Rectal Exam: Deferred Assessment and Plan - Assessment and Plan (Free Text) Plan: Continue same serum sodium level serum osmolality osmolality workup done serum sodium is much better patient advised to keep up with the fluid continue same will monitor the na intermittently
[2016-11-16] MEDS ORDERED: Potassium Chloride 20 mEq ER Tab PO STA (12:16)
--- NOTE | 2016-11-16 16:27 | MRI ---
PROCEDURE: MRI BRAIN WITHOUT CONTRAST HISTORY: seizure COMPARISON: Comparison is made to the previous CT dated 11/12/2016 TECHNIQUE: Multiplanar, multisequence MR images of the brain were obtained without intravenous contrast enhancement. FINDINGS: HEMORRHAGE: None DWI: No evidence of an acute or early subacute infarction. BRAIN PARENCHYMA: No mass effect or edema. There are nonspecific small foci of hyperintense signal in T2 and FLAIR seen at the white matter suggestive but nonspecific for chronic microvascular ischemic disease. VENTRICLES: Unremarkable. No hydrocephalus. CRANIUM: Unremarkable. ORBITS: Grossly unremarkable. PARANASAL SINUSES/MASTOIDS: Clear VASCULAR SYSTEM: Skull base flow voids intact. OTHER FINDINGS: None. IMPRESSION: No evidence of acute infarction or acute pathology in the brain. No evidence of mass lesion mass effect or midline shift. Few scattered hyperintense T2 and FLAIR signal in the white matter may represent mild chronic microvascular ischemic disease.
--- NOTE | 2016-11-16 17:48 | CP.PCM.PN ---
Subjective - Date & Time of Evaluation Date of Evaluation: 11/16/16 Time of Evaluation: 17:44 - Subjective Subjective: House Doctor Note Patient wants to sign out AMA. 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 Patient notified that he is being treated for a UTI and would benefit from staying to continue IV antibiotics. Patient stated he understands the risks of developing complications if the UTI is not treated such as SEPSIS or bacterimia, etc. Patient stated he understood and that he would return if his symptoms worsened. Patient is AAO x3, will be signed out AMA but I spoke with the admitting attending and we agreed to send him with a prescription for Cipro 500mg PO Q12H x 10 days. DW Duy Obregon DO, PGY-1 Objective - Vital Signs/Intake and Output Vital Signs (last 24 hours): Temp Pulse Resp BP Pulse Ox 97.8 F 79 20 144/91 H 98 11/16/16 16:58 11/16/16 16:58 11/16/16 16:58 11/16/16 16:58 11/16/16 16:58 Intake and Output: 11/16/16 11/16/16 06:59 18:59 Intake Total 1120 1000 Output Total 656 Balance 464 1000 - Medications Medications: Current Medications Acetaminophen (Tylenol 650 Mg Supp) 650 mg [place] Q6 PRN PRN Reason: Fever >100.4 F Last Admin: 11/13/16 08:56 Dose: 650 mg Cyanocobalamin (Vitamin B12 1000 Mcg/Ml Inj) 1,000 mcg IM DAILY [facility] Last Admin: 11/16/16 09:39 Dose: 1,000 mcg Enoxaparin Sodium (Lovenox) 40 mg SC DAILY [facility] Last Admin: 11/16/16 09:38 Dose: 40 mg Famotidine (Pepcid) 40 mg IVP DAILY [facility] Last Admin: 11/16/16 09:39 Dose: 40 mg Gabapentin (Neurontin) 300 mg PO BID [facility] Last Admin: 11/16/16 09:38 Dose: 300 mg Piperacillin Sod/Tazobactam Sod (Zosyn 3.375 Gm Iv Premix) 3.375 gm in 50 mls @ 100 mls/hr IVPB Q8H [facility] Last Admin: 11/16/16 13:54 Dose: 100 mls/hr - Labs Labs: 11/16/16 06:11 11/16/16 06:11
--- NOTE | 2016-11-17 04:44 | PN ---
DATE: 11/16/2016 SUBJECTIVE: The patient is a 66-year-old male. The patient seen and examined on the bedside, looking comfortable. Awake and alert x3. Tolerating food very well. Sister was on the bedside also. The patient wants to go against medical advice because he is not ready for discharge. According to the patient, he should not go because after going he will start drinking also. When the last time he was admitted, according to his sister, he was drinking continuously for 3 days. Otherwise, no nausea, vomiting, or diarrhea. No hematuria or hematochezia. No chest pain. No palpitation. The patient is not good historian. PHYSICAL EXAMINATION: VITAL SIGNS: Temperature 97.8, pulse 79, blood pressure 145/99, and respiratory rate 20. HEENT: Head, normocephalic and atraumatic. Eyes, PERRLA. Extraocular muscles intact. Conjunctivae clear. Nose patent. NECK: Supple. No carotid bruits. No JVD or thyromegaly. CHEST: Bilaterally symmetrical. HEART: S1 and S2 positive. LUNGS: Clear to auscultation. ABDOMEN: Soft. Bowel sounds present. No organomegaly. EXTREMITIES: No edema, no cyanosis. NEUROLOGICAL: The patient is awake, alert, moving all 4 extremities. No focal deficit. MEDICATIONS: Lovenox, Neurontin, Pepcid, Tylenol, B12, and piperacillin/tazobactam. LABORATORY DATA: White blood cells 6.4, on admission it was 12.6; hemoglobin 13.4; hematocrit 37.7; and platelets 174. Sodium 133, potassium 3.4, BUN 8, creatinine 0.6, glucose 118, and calcium 8.4. ASSESSMENT AND PLAN: Mr. Yossi Gibbons with hypokalemia, replaced; uncontrolled diabetes mellitus; abnormal liver function tests; history of leukocytosis, improved; seen by Dr. Ruth Whitney for electrolyte imbalance; and history of ethanol abuse. House physician spoke to the patient, explained to him. Problem of a scan in the a.m. Spoke to the house physician. House physician gave the patient prescription of antibiotics. Gastrointestinal and deep vein thrombosis prophylaxis. Repeat labs. We will follow up. The patient was educated that if signs or symptoms increase or if he becomes sick again, to go to the ER; otherwise, come on Friday to my office. He needs good followup. Educated to quit smoking. Carolyn John MD
[2016-11-17] MEDS: Piperacill/Tazo 3.375gm in Dex 3.375 GM/50 ML BAG IVPB SCH (06:17)
[2016-11-17 09:12] VITALS: BP 137/83; PULSE 69; TEMP 98.3; O2SAT 94
[2016-11-17] MEDS: Enoxaparin 40 mg Syringe SC SCH (09:49)
--- NOTE | 2016-11-17 09:57 | CP.PCM.PN ---
Subjective - Date & Time of Evaluation Date of Evaluation: 11/17/16 Time of Evaluation: 12:00 - Subjective Subjective: clinically same Objective - Vital Signs/Intake and Output Vital Signs (last 24 hours): Temp Pulse Resp BP Pulse Ox 98.3 F 69 20 137/83 94 L 11/17/16 07:15 11/17/16 07:15 11/17/16 07:15 11/17/16 07:15 11/17/16 07:15 - Medications Medications: Current Medications Acetaminophen (Tylenol 650 Mg Supp) 650 mg HI Q6 PRN PRN Reason: Fever >100.4 F Last Admin: 11/13/16 08:56 Dose: 650 mg Cyanocobalamin (Vitamin B12 1000 Mcg/Ml Inj) 1,000 mcg IM DAILY [facility] Last Admin: 11/17/16 09:49 Dose: 1,000 mcg Enoxaparin Sodium (Lovenox) 40 mg SC DAILY [facility] Last Admin: 11/17/16 09:49 Dose: 40 mg Famotidine (Pepcid) 40 mg IVP DAILY [facility] Last Admin: 11/17/16 09:49 Dose: 40 mg Gabapentin (Neurontin) 300 mg PO BID [facility] Last Admin: 11/17/16 09:49 Dose: 300 mg Piperacillin Sod/Tazobactam Sod (Zosyn 3.375 Gm Iv Premix) 3.375 gm in 50 mls @ 100 mls/hr IVPB Q8H [facility] Last Admin: 11/17/16 06:17 Dose: 100 mls/hr - Labs Labs: 11/16/16 06:11 11/16/16 06:11 - Constitutional Appears: Well - Head Exam Head Exam: ATRAUMATIC, NORMAL INSPECTION, NORMOCEPHALIC - Eye Exam Eye Exam: EOMI, Normal appearance, PERRL Pupil Exam: NORMAL ACCOMODATION, PERRL - ENT Exam ENT Exam: Mucous Membranes Moist, Normal Exam - Neck Exam Neck Exam: Full ROM, Normal Inspection. absent: Lymphadenopathy - Respiratory Exam Respiratory Exam: Decreased Breath Sounds - Cardiovascular Exam Cardiovascular Exam: REGULAR RHYTHM, +S1, +S2 - GI/Abdominal Exam GI & Abdominal Exam: Soft, Diminished Bowel Sounds - Rectal Exam Rectal Exam: Deferred
--- NOTE | 2016-11-17 12:57 | CP.PCM.DIS ---
Provider - Provider Date of Admission: 11/12/16 19:05 Attending physician: Carolyn John MD Primary care physician: alesha [id number] Consults: 66 y/o male presents to the ED for after being found waiting with tonic/clonic seizure activity in the waiting room. Patient was immediately transported to bed 4 for immediate treatment. Pt appears to have post-ictal period, appeared to be confused. Patient had ambulated to ED for unknown complaints. History limited at this time. came to ED, states pt was drinking heavy for 2 days since discharge from hospital for same, then no liquor at all yesterday nor today- was increasingly agitated and difficult to manage @ home. Came to ED for eval. Time Spent in preparation of Discharge (in minutes): 50 Hospital Course - Lab Results Lab Results: Micro Results 11/13/16 14:30 Blood-Venous Blood Culture - Preliminary NO GROWTH AFTER 3 DAYS 11/13/16 14:00 Blood-Venous Blood Culture - Preliminary NO GROWTH AFTER 3 DAYS 11/13/16 15:20 Urine Urine Culture - Final Enterococcus Faecalis Most Recent Lab Values WBC 6.4 K/uL (4.8-10.8) 11/16/16 06:11 RBC 4.31 Mil/uL (4.40-5.90) L 11/16/16 06:11 Hgb 13.4 g/dL (12.0-18.0) 11/16/16 06:11 Hct 37.7 % (35.0-51.0) 11/16/16 06:11 MCV 87.5 fL (80.0-94.0) 11/16/16 06:11 MCH 31.0 pg (27.0-31.0) 11/16/16 06:11 MCHC 35.4 g/dL (33.0-37.0) 11/16/16 06:11 RDW 13.1 % (11.5-14.5) 11/16/16 06:11 Plt Count 174 K/uL (130-400) 11/16/16 06:11 MPV 7.8 fL (7.2-11.7) 11/16/16 06:11 Neut % (Auto) 77.3 % (50.0-75.0) H 11/14/16 07:33 Lymph % (Auto) 12.7 % (20.0-40.0) L 11/14/16 07:33 [place] % (Auto) 9.7 % (0.0-10.0) 11/14/16 07:33 Eos % (Auto) 0.0 % (0.0-4.0) 11/14/16 07:33 Baso % (Auto) 0.3 % (0.0-2.0) 11/14/16 07:33 Neut # 4.3 K/uL (1.8-7.0) 11/14/16 07:33 Lymph # 0.7 K/uL (1.0-4.3) L 11/14/16 07:33 [place] # 0.5 K/uL (0.0-0.8) 11/14/16 07:33 Eos # 0.0 K/uL (0.0-0.7) 11/14/16 07:33 Baso # 0.0 K/uL (0.0-0.2) 11/14/16 07:33 Sodium 133 mmol/L (132-148) 11/16/16 06:11 Potassium 3.3 mmol/L (3.6-5.2) L 11/16/16 06:11 Chloride 99 mmol/L (98-107) 11/16/16 06:11 Carbon Dioxide 26 mmol/L (22-30) 11/16/16 06:11 Anion Gap 11 (10-20) 11/16/16 06:11 BUN 8 mg/dL (9-20) L 11/16/16 06:11 Creatinine 0.6 MG/DL (0.8-1.5) L 11/16/16 06:11 Est GFR ( Amer) > 60 11/16/16 06:11 Est GFR (Non-Af Amer) > 60 11/16/16 06:11 POC Glucose (mg/dL) 124 mg/dL (65-110) H 11/17/16 06:13 Random Glucose 93 mg/dL (75-110) 11/16/16 06:11 Hemoglobin A1c 5.8 % (4.2-6.5) 11/13/16 07:54 Serum Osmolality 278 mosm/kg (272-300) 11/14/16 07:33 Uric Acid 2.4 mg/dL (3.5-8.5) L 11/14/16 07:35 Calcium 8.4 mg/dl (8.6-10.4) L 11/16/16 06:11 Iron 81 ug/dL (49-181) 11/13/16 07:54 TIBC 280 ug/dL (250-450) 11/13/16 07:54 % Saturation 29 (20-55) 11/13/16 07:54 Total Bilirubin 1.4 mg/dL (0.2-1.3) H 11/16/16 06:11 Direct Bilirubin 0.2 mg/dL (0.0-0.4) 11/16/16 06:11 AST 180 U/L (17-59) H 11/16/16 06:11 ALT 69 U/L (21-72) 11/16/16 06:11 Alkaline Phosphatase 52 U/L (38-126) 11/16/16 06:11 Total Creatine Kinase 490 U/L (55-170) H 11/12/16 17:50 Total Protein 6.2 g/dL (6.3-8.3) L 11/16/16 06:11 Albumin 3.6 g/dL (3.5-5.0) 11/16/16 06:11 Globulin 2.6 gm/dL (2.2-3.9) 11/16/16 06:11 Albumin/Globulin Ratio 1.4 (1.0-2.1) 11/16/16 06:11 Triglycerides 58 mg/dL (0-149) 11/13/16 07:54 Cholesterol 152 mg/dL (0-199) 11/13/16 07:54 LDL Cholesterol Direct 67 mg/dL (0-129) 11/13/16 07:54 HDL Cholesterol 74 mg/dL (30-70) H 11/13/16 07:54 Vitamin B12 285 pg/mL (239-931) 11/13/16 07:54 Folate 16.1 ng/mL 11/13/16 07:54 TSH 3rd Generation 1.22 mIU/L (0.46-4.68) 11/13/16 07:54 Urine Color Straw (YELLOW) 11/13/16 14:28 Urine Clarity Clear (Clear) 11/13/16 14:28 Urine pH 7.0 (5.0-8.0) 11/13/16 14:28 Ur Specific [place] 1.008 (1.003-1.030) 11/13/16 14:28 Urine Protein Negative mg/dL (NEGATIVE) 11/13/16 14:28 Urine Glucose (UA) Normal mg/dL (Normal) 11/13/16 14:28 Urine Ketones 1+ mg/dL (NEGATIVE) H 11/13/16 14:28 Urine Blood Negative (NEGATIVE) 11/13/16 14:28 Urine Nitrate Negative (NEGATIVE) 11/13/16 14:28 Urine Bilirubin Negative (NEGATIVE) 11/13/16 14:28 Urine Urobilinogen Normal mg/dL (0.2-1.0) 11/13/16 14:28 Ur Leukocyte Esterase Neg [place]/uL (Negative) 11/13/16 14:28 Urine WBC (Auto) 2 /hpf (0-5) 11/13/16 14:28 Urine RBC (Auto) 2 /hpf (0-3) 11/13/16 14:28 Ur Squamous Epith Cells < 1 /hpf (0-5) 11/13/16 14:28 Urine Bacteria Rare (<OCC) 11/13/16 07:18 Urine Osmolality 447 mosm/kg (300-1000) 11/14/16 07:25 Urine Opiates Screen Negative (NEGATIVE) 11/13/16 07:18 Urine Methadone Screen Negative (NEGATIVE) 11/13/16 07:18 Ur Barbiturates Screen Negative (NEGATIVE) 11/13/16 07:18 Phenytoin < 3.0 ug/mL (10-20) L 11/12/16 17:50 Valproic Acid < 10.0 ug/mL (50.0-100.0) L 11/12/16 17:50 Carbamazepine < 3.0 ug/mL (4.0-12.0) L 11/12/16 17:50 Ur Phencyclidine Scrn Negative (NEGATIVE) 11/13/16 07:18 Ur Amphetamines Screen Negative (NEGATIVE) 11/13/16 07:18 U Benzodiazepines Scrn Negative (NEGATIVE) 11/13/16 07:18 U Oth Cocaine Metabols Negative (NEGATIVE) 11/13/16 07:18 U Cannabinoids Screen Negative (NEGATIVE) 11/13/16 07:18 Alcohol, Quantitative < 10 mg/dl (0-10) 11/12/16 17:50 - Hospital Course Hospital Course: 66 y/o male presents to the ED for after being found waiting with tonic/clonic seizure activity in the waiting room. Patient was immediately transported to bed 4 for immediate treatment. Pt appears to have post-ictal period, appeared to be confused. Patient had ambulated to ED for unknown complaints. History limited at this time. came to ED, states pt was drinking heavy for 2 days since discharge from hospital for same, then no liquor at all yesterday nor today- was increasingly agitated and difficult to manage @ home. Came to ED for eval.admitted pt , neuro , psyche and nephro consult called , got banna bag , finally Patient wants to sign out AMA. 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 Patient notified that he is being treated for a UTI and would benefit from staying to continue IV antibiotics. Patient stated he understands the risks of developing complications if the UTI is not treated such as SEPSIS or bacterimia, etc. Patient stated he understood and that he would return if his symptoms worsened. Patient is AAO x3, will be signed out AMA but house physician , spoke with me ,the admitting attending and agreed to send him with a prescription for Cipro 500mg PO Q12H x 10 days. will f/u with his own pcp Discharge Exam - Head Exam Head Exam: ATRAUMATIC, NORMAL INSPECTION, NORMOCEPHALIC - Eye Exam Eye Exam: EOMI, Normal appearance, PERRL Pupil Exam: NORMAL ACCOMODATION, PERRL - GI/Abdominal Exam GI & Abdominal Exam: Normal Bowel Sounds - Rectal Exam Rectal Exam: NORMAL INSPECTION - Exam Exam: Circumcision, NORMAL INSPECTION External exam: NORMAL EXTERNAL EXAM Speculum exam: NORMAL SPECULUM EXAM Bimanual exam: NORMAL BIMANUAL EXAM - Neurological Exam Neurological exam: Alert, CN II-XII Intact, Normal Gait, Oriented x3, Reflexes Normal - Psychiatric Exam Psychiatric exam: Normal Affect, Normal Mood - Skin Skin Exam: Dry, Intact, Normal Color, Warm Discharge Plan - Follow Up Plan Condition: GOOD Disposition: AGAINST MEDICAL ADVICE
== END 2016-11-17 11:10 | disposition left against medical advice (07) | DRG 101 ==
LOC: C.ER 17:05 → C.9E 19:05 → C.6T 20:18
PROVIDERS: ADMIT Internal Medicine; ATTEND Internal Medicine
DX: G40.409 Other generalized epilepsy and epileptic syndromes, not intractable, without status epilepticus (principal); F10.231 Alcohol dependence with withdrawal delirium; E11.65 Type 2 diabetes mellitus with hyperglycemia; J84.10 Pulmonary fibrosis, unspecified; E87.1 Hypo-osmolality and hyponatremia; N39.0 Urinary tract infection, site not specified; E53.8 Deficiency of other specified B group vitamins; E87.6 Hypokalemia

== ENCOUNTER 2017-05-14 17:09 | Inpatient (IN) | payer MEDICARE, MEDICAID ==
[2017-05-14 17:09] VITALS: BMI 26.6
[2017-05-14] MEDS ORDERED: levETIRAcetam 500 MG in Sodium Chloride 0.9% 100 ML IVPB STA (17:45)
--- NOTE | 2017-05-14 17:56 | C.PDOC ---
History Of Present Illness 66 y/o male, with history of ETOH abuse, brought by ambulance to the ER after a withdrawal seizure today. Patient had 3 withdrawal seizures at home. states that she witnessed all 3 seizures and she called 911. states her was confused and not oriented postictal. states that he generally has mild seizures. Son on phone stated that he drinks regularly and he has seizures every time he stops drinking. Son states that he had multiple hospitalizations in the past but he has never followed up with a neurologist afterwards. Son reports that he started drinking 5 days ago and he stopped drinking yesterday.Of note, HPI is limited due to patient's condition. Time Seen by Provider: 05/14/17 17:29 Chief Complaint (Nursing): Seizure History Per: Patient History/Exam Limitations: clinical condition Severity: Moderate Past Medical History Reviewed: Historical Data, Nursing Documentation, Vital Signs Vital Signs: Last Vital Signs Temp 98.4 F 05/14/17 17:20 Pulse 101 H 05/14/17 18:26 Resp 13 05/14/17 18:26 BP 143/78 05/14/17 18:26 Pulse Ox 96 05/14/17 19:12 - Medical History PMH: Hyperthyroidism, Seizures (ETOH Related.) Denies: Colonic Polyps, Fractures, Sleep Apnea, TIA Other Surgeries: Hx of orthopedic surgery - [facility] Procedures DETOXIFICATION SERVICES FOR SUBSTANCE ABUSE TREATMENT (08/01/16) INDIV PSYCHOTHERAPY FOR SUBSTANCE ABUSE TREATMENT, SUPPORT (08/01/16) INDIV PSYCHOTHERAPY FOR SUBSTANCE ABUSE, COGNITIV BEHAVIORAL (08/01/16) INDIV PSYCHOTHERAPY FOR SUBSTANCE ABUSE, PSYCHOEDUCATION (08/01/16) Family History: States: No Known Family Hx - Social History Hx Alcohol Use: Yes (AT INTERVALS) Hx Substance Use: No - Immunization History Hx Tetanus Toxoid Vaccination: No Hx Influenza Vaccination: No Hx Pneumococcal Vaccination: No Review Of Systems Review Of Systems: ROS cannot be obtained secondary to pt's inabilty to answer questions. Neurological: Positive for: Seizures Physical Exam - Physical Exam Appears: No Acute Distress, Confused Skin: Normal Color, Warm Head: Atraumatic, Normacephalic Eye(s): bilateral: Normal Inspection Nose: Normal Oral Mucosa: Moist Neck: Supple Chest: Symmetrical Cardiovascular: Rhythm Regular Respiratory: Normal Breath Sounds, No Accessory Muscle Use, No Rales, No Rhonchi , No Wheezing Neurological/Psych: Other (no focal deficits) ED Course And Treatment - Laboratory Results Result Diagrams: 05/14/17 18:00 05/14/17 18:00 Lab Interpretation: Abnormal (Na 124, K= 3.3, BUN 5, Cr, 0.6, ETOH 0) O2 Sat by Pulse Oximetry: 96 (RA) Pulse Ox Interpretation: Normal Progress Note: 6:05 Patient had a generalized seizure in ED. He did bite his tongue. No other injury. Ativan 2mg IVP given. - Physician Consult Information Time Consulting Physician Contacted: 19:12 Physician Contacted: Giana Whitney Medical Decision Making Medical Decision Making: Plan: --Labs --UDS --Keppra Disposition - Disposition Disposition: HOSPITALIZED Disposition Time: 20:01 Condition: FAIR - Clinical Impression Clinical Impression: Alcohol withdrawal seizure - Scribe Statement The provider has reviewed the documentation as recorded by the Lourdesibshen Vanegas Provider Attestation: All medical record entries made by the Scribe were at my direction and personally dictated by me. I have reviewed the chart and agree that the record accurately reflects my personal performance of the history, physical exam, medical decision making, and the department course for this patient. I have also personally directed, reviewed, and agree with the discharge instructions and disposition.
[2017-05-14 18:07] LABS: BASO % 0.1 % (0.0-2.0); HEMOGLOBIN 13.6 g/dL (12.0-18.0); LYMPH # 0.4 K/uL (1.0-4.3); MEAN CELL VOLUME 88.6 fL (80.0-94.0); MEAN CORPUSCULAR HEMOGLOBIN 30.9 pg (27.0-31.0); MEAN CORPUSCULAR HGB CONC 34.9 g/dL (33.0-37.0); MONO # 0.5 K/uL (0.0-0.8); MONO % 5.1 % (0.0-10.0); NEUT # 8.5 K/uL (1.8-7.0); NEUT % 90.8 % (50.0-75.0); PLATELET COUNT 166 K/uL (130-400); RBC 4.39 Mil/uL (4.40-5.90); RED CELL DISTRIBUTION WIDTH 13.3 % (11.5-14.5); WHITE BLOOD COUNT 9.4 K/uL (4.8-10.8)
[2017-05-14 18:17] LABS: ALB/GLOB RATIO 1.5 (1.0-2.1); ALBUMIN 4.7 g/dL (3.5-5.0); ALT/SGPT 29 U/L (21-72); AST/SGOT 50 U/L (17-59); BLOOD UREA NITROGEN 5 mg/dL (9-20); CALCIUM 9.3 mg/dl (8.6-10.4); GFR AFRICAN-AMERICAN > 60; GFR NON-AFRICAN AMERICAN > 60
[2017-05-14 18:26] LABS: BARBITURATES, UR NEGATIVE (NEGATIVE); BENZODIAZEPINES, UR NEGATIVE (NEGATIVE); OPIATES, UR NEGATIVE (NEGATIVE); PHENCYCLIDINE, UR NEGATIVE (NEGATIVE)
[2017-05-14 19:06] LABS: LYMPHOCYTE 3 % (20-40); MONOCYTE 6 % (0-10); NEUTROPHIL 91 % (50-75); PLATELET ESTIMATE NORMAL (NORMAL); TOTAL CELLS COUNTED 100
[2017-05-14] MEDS ORDERED: Sodium Chloride 0.9% 1,000 ML IV ONE (20:02)
[2017-05-14] MEDS ORDERED: Potassium Chloride 20 mEq ER Tab PO STA ×2 (20:03→22:59)
[2017-05-14] MEDS ORDERED: Potassium Chloride 20 mEq ER Tab PO ONE ×2 (20:14→23:57)
--- NOTE | 2017-05-14 22:59 | CP.PCM.HP ---
Past Patient History - Infectious Disease Hx of Infectious Diseases: None - Past Medical History & Family History Past Medical History?: No - Past Social History Smoking Status: Never Smoked - CARDIAC Hx Heart Attack: No - PULMONARY Hx Sleep Apnea: No - NEUROLOGICAL Hx Seizures: Yes (ETOH Related.) Hx Transient Ischemic Attacks (TIA): No - ENDOCRINE/METABOLIC Hx Hyperthyroidism: Yes - HEMATOLOGICAL/ONCOLOGICAL Hx Blood Transfusions: No - MUSCULOSKELETAL/RHEUMATOLOGICAL Hx Fractures: No - GASTROINTESTINAL Hx Gastrointestinal Disorders: No - PSYCHIATRIC Hx Substance Use: No - SURGICAL HISTORY Hx Surgeries: No Hx Orthopedic Surgery: Yes (Wrist Surgery.) - ANESTHESIA Hx Anesthesia: Yes Hx Anesthesia Reactions: No Hx Malignant Hyperthermia: No Meds Allergies/Adverse Reactions: Allergies Allergy/AdvReac Type Severity Reaction Status Date / Time No Known Allergies Allergy Verified 05/14/17 17:25 Results - Vital Signs Recent Vital Signs: Last Vital Signs Temp 98.4 F 05/14/17 17:20 Pulse 101 H 05/14/17 18:26 Resp 13 05/14/17 18:26 BP 143/78 05/14/17 18:26 Pulse Ox 96 05/14/17 20:02 - Labs Result Diagrams: 05/14/17 18:00 05/14/17 18:00 Labs: Laboratory Results - last 24 hr 05/14/17 05/14/17 05/14/17 17:27 18:00 18:00 WBC 9.4 RBC 4.39 L Hgb 13.6 Hct 38.9 MCV 88.6 MCH 30.9 MCHC 34.9 RDW 13.3 Plt Count 166 MPV 8.0 Neut % (Auto) 90.8 H Lymph % (Auto) 4.0 L [place] % (Auto) 5.1 Eos % (Auto) 0.0 Baso % (Auto) 0.1 Neut # (Auto) 8.5 H Lymph # (Auto) 0.4 L [place] # (Auto) 0.5 Eos # (Auto) 0.0 Baso # (Auto) 0.0 Neutrophils % (Manual) 91 H Lymphocytes % (Manual) 3 L Monocytes % (Manual) 6 Platelet Estimate Normal RBC Morphology Normal Sodium 124 L Potassium 3.3 L Chloride 85 L Carbon Dioxide 23 Anion Gap 20 BUN 5 L Creatinine 0.6 L Est GFR ( Amer) > 60 Est GFR (Non-Af Amer) > 60 POC Glucose (mg/dL) 153 H Random Glucose 154 H Calcium 9.3 Total Bilirubin 2.0 H AST 50 ALT 29 Alkaline Phosphatase 101 Total Protein 7.7 Albumin 4.7 Globulin 3.0 Albumin/Globulin Ratio 1.5 Urine Opiates Screen Urine Methadone Screen Ur Barbiturates Screen Ur Phencyclidine Scrn Ur Amphetamines Screen U Benzodiazepines Scrn U Oth Cocaine Metabols U Cannabinoids Screen Alcohol, Quantitative < 10 05/14/17 18:00 WBC RBC Hgb Hct MCV MCH MCHC RDW Plt Count MPV Neut % (Auto) Lymph % (Auto) [place] % (Auto) Eos % (Auto) Baso % (Auto) Neut # (Auto) Lymph # (Auto) [place] # (Auto) Eos # (Auto) Baso # (Auto) Neutrophils % (Manual) Lymphocytes % (Manual) Monocytes % (Manual) Platelet Estimate RBC Morphology Sodium Potassium Chloride Carbon Dioxide Anion Gap BUN Creatinine Est GFR ( Amer) Est GFR (Non-Af Amer) POC Glucose (mg/dL) Random Glucose Calcium Total Bilirubin AST ALT Alkaline Phosphatase Total Protein Albumin Globulin Albumin/Globulin Ratio Urine Opiates Screen Negative Urine Methadone Screen Negative Ur Barbiturates Screen Negative Ur Phencyclidine Scrn Negative Ur Amphetamines Screen Negative U Benzodiazepines Scrn Negative U Oth Cocaine Metabols Negative U Cannabinoids Screen Negative Alcohol, Quantitative
[2017-05-14] MEDS ORDERED: Multivitamin (MVI) 10 ML, Thiamine 100 MG, Folic Acid 1 MG in Sodium Chloride 0.9% 1,00... IV ONE (23:31)
--- NOTE | 2017-05-15 05:50 | PCM.FALL ---
Post Fall Progress Note - Post Fall Fall Date: 05/15/17 Fall Time: 05:11 Description of Fall: Pt tried to get out of bed and fell, hitting head on floor as per nursing staff - Post Fall Exam Vital Sign: Temp Pulse Resp BP Pulse Ox 98 F 84 18 150/80 98 05/15/17 04:03 05/15/17 04:03 05/15/17 04:03 05/15/17 04:03 05/15/17 04:03 Eye Exam: Positive for: Pupils reactive Ear Exam: Negative for: Bleeding Nose Exam: Negative for: Bleeding Skin Exam: Negative for: Lacerations Impression/Plan: Pt fell out of his bed as per nursing and he hit his head on the floor. The patient is being admitted for alcohol abuse and w/d. After the fall he was given 2mg Ativan for agitation by the ED. Upon arrival for exam the patient is sedated from the ativan and non-cooperative for examination. He is able to move all limbs. He does not respond to questioning. CT head and CXR were ordered. Dr. Emelyn Whitney was contacted by ED staff for notification.
--- NOTE | 2017-05-15 06:27 | CT ---
EXAM: CT Head Without Intravenous Contrast EXAM DATE/TIME: 05/15/2017 5:39 AM CLINICAL HISTORY: 66 years old, male; Pain; Other: Post fall; Patient HX: 11-12-16; Additional info: Post-fall TECHNIQUE: Axial computed tomography images of the head/brain without intravenous contrast. All CT scans at this facility use one or more dose reduction techniques, viz.: automated exposure control; ma/kV adjustment per patient size (including targeted exams where dose is matched to indication; i.e. head); or iterative reconstruction technique. COMPARISON: CT - HEAD W/O CONTRAST 2016-11-12 22:17 FINDINGS: There is atrophy. There is chronic small vessel ischemic disease. Extra axial CSF space in the right frontal parietal region slightly more prominent than on the left raising the possibility of chronic subdural collection / subdural hygroma. There is no hemorrhage or edema. No significant fluid in the sinuses. The osseous structures are normal. IMPRESSION: No acute intracranial hemorrhage.
--- NOTE | 2017-05-15 09:27 | RAD ---
Chest x-ray single frontal view History: Post fall. Comparison: 11/12/2016 Findings: No focal infiltrate or effusion. Heart size within normal limits. Mild scoliotic curvature of the spine. Impression: No focal infiltrate or effusion.
[2017-05-15] MEDS: Pantoprazole 40 mg EC Tab PO SCH (10:31)
[2017-05-15] MEDS: Enoxaparin 40 mg Syringe SC SCH (10:31)
[2017-05-15] MEDS: Levothyroxine 25 MCG TAB PO SCH (10:31)
--- NOTE | 2017-05-15 13:59 | PCM.PSYCH ---
Initial Psychiatric Evaluation - Initial Psychiatric Evaluation Type of Admission: Voluntary Legal Status: Capacity Chief Complaint (in patient's own words): "I want to leave." History of Present Illness and Precipitating Events: HPI: Pt is a 66 year old male. Speaks Green[place]ic, only. He is a poor historian , not oriented to place (thinks he is in [place]), or time (its April). Patient did not know his birthday, stating it was 1950. Patient states he wants to leave because he feels good. Hx of ETOH abuse. Per ED documentation , He was brought to the ER by his who states that she witnessed 3 withdrawal seizures at home. states he was confused and disoriented postictal, and that he typically has mild seizures. Son on phone stated that he drinks regularly and he has seizures every time he stops drinking. Son states that he had multiple hospitalizations in the past but he has never followed up with a neurologist afterwards. Son reports that he started drinking on Friday, stopped drinking Friday. Patient had a generalized seizure in the ED, he bit his tongue. Pt tried to get out of bed at 5AM today, per nursing staff, fell and hit his head on the floor. Patient is one-to-one for safety. Patient is , has one child in the [place], one child in [place]. Patient states his last memory was drinking a bottle of Turkish whiskey on Friday night. He says he drinks about 10 glasses of red wine daily, when he does drink but does not drink every day. Patient remained anxious about leaving and agitated throughout the interview. Patient was disorganized, internally preoccupied and delusional throughout the interview. Detox: "a couple of times" Rehab: He has tried, "I always go back to drinking" PMHx: Alcoholic seizures, DT Current Medications: Active Medications Generic Name Dose Route Start Last Admin Trade Name Freq PRN Reason Stop Dose Admin Chlordiazepoxide 25 mg 05/14/17 23:32 05/15/17 10:31 Librium PO 25 mg Q4 PRN Administration Agitation Enoxaparin Sodium 40 mg 05/15/17 10:00 05/15/17 10:31 Lovenox SC 40 mg DAILY BRANDY Administration Gabapentin 300 mg 05/15/17 10:00 05/15/17 10:31 Neurontin PO 300 mg BID BRANDY Administration Levothyroxine Sodium 25 mcg 05/15/17 07:30 05/15/17 10:31 Synthroid PO 25 mcg ACB BRANDY Administration Lorazepam 1 mg 05/14/17 22:00 05/15/17 03:00 Ativan IVP 1 mg Q4H PRN Administration Anxiety Pantoprazole Sodium 40 mg 05/15/17 10:00 05/15/17 10:31 Protonix Ec Tab PO 40 mg DAILY BRANDY Administration Past Psychiatric History - Past Psychiatric History Previous Treatment History: None Pertinent Medical Hx (Current Medical&Sleep Prob, Allergies): Allergies Allergy/AdvReac Type Severity Reaction Status Date / Time No Known Allergies Allergy Verified 05/14/17 17:25 Gabapentin [Neurontin] 300 mg PO BID #60 cap 08/05/16 Levothyroxine [Synthroid] 25 mcg PO ACB 11/14/16 Review of Systems - Review of Systems Systems not reviewed;Unavailable: Altered Mental Status All systems: reviewed and no additional remarkable complaints except - Neurological Neurological: Confusion, Frequent Falls, Memory Loss - Psychiatric Psychiatric: Confusion, Difficulty Concentrating, Irritability, Memory Loss Mental Status Examination - Personal Presentation Personal Presentation: Looks stated age - Affect Affect: Flat - Motor Activity Motor Activity: Psychomotor Agitation - Reliability in Providing Information Reliability in Providing Information: Poor, due to alteration in thoughts, Poor , due to cognitve impairment - Speech Speech: Disorganized - Mood Mood: Anxious - Formal Thought Process Formal Thought Process: Loosening of associations - Obsessions/Compulsions Obsessions: No Compulsions: No - Cognitive Functions Sensorium: Drowsy Attention/Concentration: Easily distracted Estimate of Intelligence: Below average Judgement: Imparied, as evidence by: Poor judgement, Imparied, as evidence by: Lack of insight into illness Memory: Recent impaired, as evidence by: Inability to recall events of the day, Remote impaired as evidenced by: Inability to recall sig life events - Risk Risk: Seizure, Withdrawal, Falls, Diminished functioning DSM 5 DX - DSM 5 DSM 5 Diagnosis: Alcohol use d/o- severe Alcohol withdrawal- severe Alcohol induced psychosis r/o delirium tremens - Recommended/Plan of Treatment Treatment Recommendations and Plan of Treatment: Alcohol withdrawal- complicated r/o deliurium tremens CBT Psychoeducation Supportive therapy, individual therapy Librium when necessary Librium taper Folic acid/thiamine/multivitamin Haldol 5 mg by mouth twice a day Alcohol use d/o- severe CBT Psychoeducation Supportive therapy. individual therapy Use RI for abstinence
--- NOTE | 2017-05-15 18:36 | CP.PCM.PN ---
Subjective - Date & Time of Evaluation Date of Evaluation: 05/15/17 Time of Evaluation: 12:00 - Subjective Subjective: clinically same Objective - Vital Signs/Intake and Output Vital Signs (last 24 hours): Temp Pulse Resp BP Pulse Ox 97.8 F 127 H 18 125/96 H 98 05/15/17 13:47 05/15/17 16:48 05/15/17 16:48 05/15/17 16:55 05/15/17 16:48 Intake and Output: 05/15/17 05/15/17 06:59 18:59 Intake Total 1800 Output Total 1000 Balance 800 - Medications Medications: Current Medications Chlordiazepoxide (Librium) 25 mg PO Q4 PRN PRN Reason: Agitation Last Admin: 05/15/17 16:23 Dose: 25 mg Enoxaparin Sodium (Lovenox) 40 mg SC DAILY [facility] Last Admin: 05/15/17 10:31 Dose: 40 mg Gabapentin (Neurontin) 300 mg PO BID [facility] Last Admin: 05/15/17 18:16 Dose: 300 mg Levothyroxine Sodium (Synthroid) 25 mcg PO ACB [facility] Last Admin: 05/15/17 10:31 Dose: 25 mcg Lorazepam (Ativan) 1 mg IVP Q4H PRN PRN Reason: Anxiety Last Admin: 05/15/17 16:44 Dose: 1 mg Pantoprazole Sodium (Protonix Ec Tab) 40 mg PO DAILY [facility] Last Admin: 05/15/17 10:31 Dose: 40 mg - Labs Labs: 05/14/17 18:00 05/14/17 18:00 - Constitutional Appears: Well - Head Exam Head Exam: ATRAUMATIC, NORMAL INSPECTION, NORMOCEPHALIC - Eye Exam Eye Exam: EOMI, Normal appearance, PERRL Pupil Exam: NORMAL ACCOMODATION, PERRL - ENT Exam ENT Exam: Mucous Membranes Moist, Normal Exam - Neck Exam Neck Exam: Full ROM, Normal Inspection. absent: Lymphadenopathy - Respiratory Exam Respiratory Exam: Decreased Breath Sounds - Cardiovascular Exam Cardiovascular Exam: REGULAR RHYTHM, +S1, +S2 - GI/Abdominal Exam GI & Abdominal Exam: Soft, Diminished Bowel Sounds - Rectal Exam Rectal Exam: Deferred
--- NOTE | 2017-05-15 18:42 | CON ---
DATE: 05/15/2017 CHIEF COMPLAINT: Seizure. HISTORY OF PRESENT ILLNESS: This is a 66-year-old man, Urdu speaking, who is a poor historian, who came in with history of ETOH abuse and dyslipidemia, not oriented to place, thinks it is [place], or time. He has a history of ETOH abuse. stated he was completely disoriented and postictal. She noticed that he had three withdrawal seizures at home. His son mentions every time he stops drinking ETOH that he has usually withdrawal seizures. He has multiple hospitalizations in the past and has never followed up with a neurologist after. He reports that he started drinking on Friday and stopped drinking on Friday. The patient had generalized tonic-clonic seizure in the ER and bit the side of his tongue. He is currently under delirium tremens. Psychiatry did evaluate the patient, has recommended Ativan taper and when necessary on Haldol, vitamin S p.o. b.i.d. along with folic acid, thiamine, and vitamin and psychoeducation. CAT scan of the head showed no acute intracranial abnormality. His sodium was hyponatremic as well as dehydrated. Follows simple commands. Moves all extremities equally. PAST MEDICAL HISTORY: History of ETOH abuse and ETOH withdrawal seizures. SOCIAL HISTORY: Drinks daily alcohol, occasional smoker. No illicit drug use. REVIEW OF SYSTEMS: A 14-point review of systems negative except per HPI. FAMILY HISTORY: Noncontributory. MEDICATIONS: Reviewed by nurse reconciliation. ALLERGIES: NO KNOWN DRUG ALLERGIES. CURRENT PHYSICAL EXAMINATION: VITAL SIGNS: Temperature 97.8, pulse rate of 94, blood pressure 151/98, respiratory rate of 18, oxygen saturation 99% on room air. GENERAL: The patient is sitting up in bed, drowsy, no acute distress. HEENT: Head is atraumatic and normocephalic. PERRLA. Extraocular muscles are intact. NECK: Supple. No JVD. No adenopathy noted. LUNGS: Clear to auscultation. No adventitious sounds. HEART: S1 and S2. Normal rate and rhythm. No murmurs, rubs, or gallops. ABDOMEN: Soft, nontender, nondistended. Bowel sounds present. EXTREMITIES: No clubbing. No cyanosis. Peripheral pulses 2+ felt bilaterally. NEURO: The patient is drowsy in no acute distress. His reliability in providing is poor due to altered thoughts and due to cognitive impairment. He has loose associations and disorganized speech. Cranial nerves II through XII are intact. Moves all extremities equally. Normal tone. Sensory exam, withdrawals are localized to noxious stimulus. Light touch is intact. DTRs are 2+ throughout. Coordination and gait deferred for now. LABORATORY DATA: Sodium 124, potassium 3.3, chloride of 85, carbon dioxide 23, BUN of 5, creatinine 0.65, and glucose 154. ASSESSMENT AND PLAN: This is a 66-year-old male with history of alcohol abuse and history of ETOH withdrawal seizures, history of depression, hypothyroidism, who presented with breakthrough seizures from underlying ETOH withdrawal. He is currently in delirium tremens as well. At this time, I recommend: 1. Ativan 1 mg q.4 hours p.r.n. for underlying tremors. 2. Continue gabapentin 300 mg p.o. b.i.d, which will help with his underlying anxiety as well as in addition help with his seizures. We will avoid full use of anti-epileptic drugs since he has prolonged seizures. 3. Thiamine, folate, and multivitamins via IV. 4. Continue Librium. Monitor his LFTs. 5. Psychoeducation and cognitive behavioral therapy. Followup with Psychiatry. Once again, thank you for this consult. Murphy Moseley MD
[2017-05-16] MEDS: Levothyroxine 25 MCG TAB PO SCH (06:53)
[2017-05-16 08:37] LABS: ALB/GLOB RATIO 1.2 (1.0-2.1); ALBUMIN 4.2 g/dL (3.5-5.0); ALT/SGPT 43 U/L (21-72); AST/SGOT 81 U/L (17-59); BLOOD UREA NITROGEN 11 mg/dL (9-20); CALCIUM 9.3 mg/dl (8.6-10.4); GFR AFRICAN-AMERICAN > 60; GFR NON-AFRICAN AMERICAN > 60; MAGNESIUM 1.9 mg/dL (1.6-2.3)
[2017-05-16] MEDS: Enoxaparin 40 mg Syringe SC SCH (10:26)
[2017-05-16] MEDS: Pantoprazole 40 mg EC Tab PO SCH (10:27)
[2017-05-16] MEDS: Multiple Vitamins Tab PO SCH (10:27)
--- NOTE | 2017-05-16 16:01 | PCM.PYCHPN ---
Psychiatric Progress Note - Psychiatric Progress Note Patient seen today, length of contact: 15 min Patient Chief Complaint: "I m jaiden." Problems Identified/Issues Discussed: Patient seen and evaluated, chart reviewed and discussed with the nurse. Patient reports improvement in his mood and reports improvement in the anxiety symptoms. He denies any auditory or visual hallucinations. He remained calm and cooperative. Patient reports some improvement in withdrawal symptoms including headaches and sweating. He denies any feelings of hopelessness and helplessness. He is taking medication and denies any side effects. He needs more time for stabilization. Supportive therapy and psychoeducation were given. Medication Change: Yes (d/c ativan) Medical Record Reviewed: Yes Mental Status Examination - Cognitive Function Orientation: Person Memory: Intact Attention: WNL Concentration: Poor Association: Loose Fund of Knowledge: Poor - Mood Mood: Anxious - Affect Affect: Flat - Speech Speech: Soft - Formal Thought Process Formal Thought Process: Loosening of associations - Suicidal Ideation Suicidal Ideation: No - Homicidal Ideation Homicidal Ideation: No Goal/Treatment Plan - Goal/Treatment Plan Need for Continued Stay: Severe depression anxiety, Severe functional impairment Progress Toward Problem(s) and Goals/Treatment Plan: Alcohol withdrawal- complicated r/o deliurium tremens CBT Psychoeducation Supportive therapy, individual therapy Librium when necessary Librium taper Folic acid/thiamine/multivitamin Haldol 5 mg by mouth twice a day Alcohol use d/o- severe CBT Psychoeducation Supportive therapy. individual therapy [facility]
--- NOTE | 2017-05-16 17:52 | CP.PCM.PN ---
Subjective - Date & Time of Evaluation Date of Evaluation: 05/16/17 Time of Evaluation: 11:40 - Subjective Subjective: clinically same Objective - Vital Signs/Intake and Output Vital Signs (last 24 hours): Temp Pulse Resp BP Pulse Ox 99.2 F 124 H 20 100/65 94 L 05/16/17 17:09 05/16/17 17:09 05/16/17 17:09 05/16/17 17:09 05/16/17 17:09 - Medications Medications: Current Medications Chlordiazepoxide (Librium) 25 mg PO Q4 PRN PRN Reason: Agitation Last Admin: 05/15/17 16:23 Dose: 25 mg Chlordiazepoxide (Librium) 25 mg PO TID [facility] PRN Reason: Taper Stop: 05/18/17 23:59 Clonidine HCl (Catapres) 0.1 mg PO Q4H PRN PRN Reason: Symptoms of alcohol withdrawl Enoxaparin Sodium (Lovenox) 40 mg SC DAILY [facility] Last Admin: 05/16/17 10:26 Dose: 40 mg Folic Acid (Folic Acid) 1 mg PO DAILY [facility] Last Admin: 05/16/17 10:27 Dose: 1 mg Gabapentin (Neurontin) 300 mg PO BID [facility] Last Admin: 05/16/17 10:27 Dose: 300 mg Levothyroxine Sodium (Synthroid) 25 mcg PO ACB [facility] Last Admin: 05/16/17 06:53 Dose: 25 mcg Multivitamins (Hexavitamin) 1 tab PO DAILY [facility] Last Admin: 05/16/17 10:27 Dose: 1 tab Pantoprazole Sodium (Protonix Ec Tab) 40 mg PO DAILY [facility] Last Admin: 05/16/17 10:27 Dose: 40 mg Thiamine HCl (Vitamin B1 Tab) 100 mg PO DAILY [facility] Last Admin: 05/16/17 10:27 Dose: 100 mg - Labs Labs: 05/14/17 18:00 05/16/17 07:42 - Constitutional Appears: Well - Head Exam Head Exam: ATRAUMATIC, NORMAL INSPECTION, NORMOCEPHALIC - Eye Exam Eye Exam: EOMI, Normal appearance, PERRL Pupil Exam: NORMAL ACCOMODATION, PERRL - ENT Exam ENT Exam: Mucous Membranes Moist, Normal Exam - Neck Exam Neck Exam: Full ROM, Normal Inspection. absent: Lymphadenopathy - Respiratory Exam Respiratory Exam: Decreased Breath Sounds - Cardiovascular Exam Cardiovascular Exam: REGULAR RHYTHM, +S1, +S2 - GI/Abdominal Exam GI & Abdominal Exam: Soft, Diminished Bowel Sounds - Rectal Exam Rectal Exam: Deferred Assessment and Plan (1) Alcohol withdrawal seizure Status: Acute (2) Acute hyponatremia Status: Acute (3) Alcohol intoxication Status: Acute (4) Delirium tremens Status: Acute (5) Fever, low grade Status: Acute (6) Tonic-clonic seizure Status: Acute - Assessment and Plan (Free Text) Plan: Continue thiamine Continue MVI Continue Librium Continue watch patient's for DTs and of fall and seizure precautions
[2017-05-17] MEDS: Levothyroxine 25 MCG TAB PO SCH (06:35)
[2017-05-17] MEDS: Pantoprazole 40 mg EC Tab PO SCH (09:48)
[2017-05-17] MEDS: Multiple Vitamins Tab PO SCH (09:48)
[2017-05-17] MEDS: Enoxaparin 40 mg Syringe SC SCH (09:48)
--- NOTE | 2017-05-17 10:14 | CP.PCM.CON ---
History of Present Illness - History of Present Illness History of Present Illness: Patient seen by me on 05/16/16 66 y/o with chronic ETOH dependence and hx of withdrawal seizures. Unable to obtain history from patient due to lethargy and somnolence. Hx obtained from medical record review. Does not appear to be in any acute cardipulmonary distress. Exam is insignificant for any CHF, clinical sx's of PA or pathologic murmurs. Review of Systems - Review of Systems Systems not reviewed;Unavailable: Altered Mental Status All systems: reviewed and no additional remarkable complaints except Past Patient History - Infectious Disease Hx of Infectious Diseases: None - Past Medical History & Family History Past Medical History?: No - Past Social History Smoking Status: Unknown If Ever Smoked - CARDIAC Hx Cardiac Disorders: No Hx Heart Attack: No - PULMONARY Hx Respiratory Disorders: No Hx Sleep Apnea: No - NEUROLOGICAL Hx Neurological Disorder: Yes Hx Seizures: Yes (ETOH Related.) Hx Transient Ischemic Attacks (TIA): No - HEENT Hx HEENT Problems: No - RENAL Hx Chronic Kidney Disease: No - ENDOCRINE/METABOLIC Hx Endocrine Disorders: Yes Hx Hyperthyroidism: Yes - HEMATOLOGICAL/ONCOLOGICAL Hx Blood Disorders: No Hx Blood Transfusions: No - INTEGUMENTARY Hx Dermatological Problems: No - MUSCULOSKELETAL/RHEUMATOLOGICAL Hx Musculoskeletal Disorders: Yes Hx Falls: Yes (ETOH Abuse) - GASTROINTESTINAL Hx Gastrointestinal Disorders: No - GENITOURINARY/GYNECOLOGICAL Hx Genitourinary Disorders: No - PSYCHIATRIC Hx Psychophysiologic Disorder: No Hx Substance Use: No Other/Comment: ETOH Abuse - SURGICAL HISTORY Hx Surgeries: Yes Hx Orthopedic Surgery: Yes (Wrist Surgery.) - ANESTHESIA Hx Anesthesia: Yes Hx Anesthesia Reactions: No Hx Malignant Hyperthermia: No Meds Allergies/Adverse Reactions: Allergies Allergy/AdvReac Type Severity Reaction Status Date / Time No Known Allergies Allergy Verified 05/14/17 17:25 - Medications Medications: Current Medications Chlordiazepoxide (Librium) 25 mg PO Q4 PRN PRN Reason: Agitation Last Admin: 05/15/17 16:23 Dose: 25 mg Chlordiazepoxide (Librium) 25 mg PO BID [facility] PRN Reason: Taper Stop: 05/18/17 23:59 Last Admin: 05/17/17 09:48 Dose: 25 mg Clonidine HCl (Catapres) 0.1 mg PO Q4H PRN PRN Reason: Symptoms of alcohol withdrawl Enoxaparin Sodium (Lovenox) 40 mg SC DAILY [facility] Last Admin: 05/17/17 09:48 Dose: 40 mg Folic Acid (Folic Acid) 1 mg PO DAILY [facility] Last Admin: 05/17/17 09:48 Dose: 1 mg Gabapentin (Neurontin) 300 mg PO BID [facility] Last Admin: 05/17/17 09:48 Dose: 300 mg Levothyroxine Sodium (Synthroid) 25 mcg PO ACB [facility] Last Admin: 05/17/17 06:35 Dose: 25 mcg Multivitamins (Hexavitamin) 1 tab PO DAILY [facility] Last Admin: 05/17/17 09:48 Dose: 1 tab Pantoprazole Sodium (Protonix Ec Tab) 40 mg PO DAILY [facility] Last Admin: 05/17/17 09:48 Dose: 40 mg Thiamine HCl (Vitamin B1 Tab) 100 mg PO DAILY [facility] Last Admin: 05/17/17 09:48 Dose: 100 mg Physical Exam - Constitutional Appears: No Acute Distress - Head Exam Head Exam: ATRAUMATIC, NORMAL INSPECTION, NORMOCEPHALIC - Eye Exam Eye Exam: Normal appearance - ENT Exam ENT Exam: Mucous Membranes Moist, Normal Oropharynx - Neck Exam Neck exam: Positive for: Normal Inspection. Negative for: Tenderness - Respiratory Exam Respiratory Exam: Clear to Auscultation Bilateral - Cardiovascular Exam Cardiovascular Exam: REGULAR RHYTHM. absent: JVD, Systolic Murmur - GI/Abdominal Exam GI & Abdominal Exam: Normal Bowel Sounds, Soft. absent: Tenderness - Extremities Exam Extremities exam: Positive for: normal inspection, pedal pulses present. Negative for: calf tenderness, pedal edema - Neurological Exam Neurological exam: Altered - Skin Skin Exam: Normal Color Results - Vital Signs Recent Vital Signs: Last Vital Signs Temp 98.3 F 05/17/17 07:10 Pulse 122 H 05/17/17 07:10 Resp 20 05/17/17 07:10 BP 118/82 05/17/17 07:10 Pulse Ox 96 05/17/17 07:10 - Labs Result Diagrams: 05/14/17 18:00 05/16/17 07:42 Assessment & Plan - Assessment and Plan (Free Text) Assessment: 66 y/o with altered mental status 1. ETOH dependence 2. withdrawal seizures 3. Hx of hypothyroidism 4. ELevated bilirubin Impression: No evidence of any overt CHF or volume overload No clinically significant murmurs Normal clinical exam without cyanosis or sx's of PAD Plan: Supportive care as directed by PSYCH and PMD No cardiac work-up planned BP is stable with mild tachycardia without sx's of infection Nutritionasl supplement and monitor lytes Will sign off - Date & Time Date: 05/16/17 Time: 13:30
[2017-05-17 11:41] LABS: BASO % 0.4 % (0.0-2.0); EOS % 0.1 % (0.0-4.0); HEMOGLOBIN 14.3 g/dL (12.0-18.0); LYMPH # 1.1 K/uL (1.0-4.3); MEAN CELL VOLUME 89.6 fL (80.0-94.0); MEAN CORPUSCULAR HEMOGLOBIN 31.5 pg (27.0-31.0); MEAN CORPUSCULAR HGB CONC 35.1 g/dL (33.0-37.0); MEAN PLATELET VOLUME 8.7 fL (7.2-11.7); MONO # 0.8 K/uL (0.0-0.8); MONO % 6.7 % (0.0-10.0); NEUT # 10.4 K/uL (1.8-7.0); NEUT % 83.8 % (50.0-75.0); PLATELET COUNT 184 K/uL (130-400); RBC 4.53 Mil/uL (4.40-5.90); RED CELL DISTRIBUTION WIDTH 13.1 % (11.5-14.5); WHITE BLOOD COUNT 12.4 K/uL (4.8-10.8)
[2017-05-17 12:01] LABS: ALB/GLOB RATIO 1.2 (1.0-2.1); ALBUMIN 4.2 g/dL (3.5-5.0); ALT/SGPT 40 U/L (21-72); AST/SGOT 99 U/L (17-59); BLOOD UREA NITROGEN 25 mg/dL (9-20); CALCIUM 9.3 mg/dl (8.6-10.4); GFR AFRICAN-AMERICAN > 60; GFR NON-AFRICAN AMERICAN > 60
[2017-05-17 12:09] LABS: ANISOCYTOSIS SLIGHT; LYMPHOCYTE 11 % (20-40); MONOCYTE 7 % (0-10); NEUTROPHIL 82 % (50-75); PLATELET ESTIMATE NORMAL (NORMAL); TOTAL CELLS COUNTED 100
[2017-05-17 12:10] LABS: LARGE PLATELETS PRESENT; POLYCHROMIC SLIGHT
--- NOTE | 2017-05-17 16:32 | CP.PCM.PN ---
Subjective - Date & Time of Evaluation Date of Evaluation: 05/17/17 Time of Evaluation: 09:20 - Subjective Subjective: clinically same Objective - Vital Signs/Intake and Output Vital Signs (last 24 hours): Temp Pulse Resp BP Pulse Ox 98.3 F 122 H 20 118/82 96 05/17/17 07:10 05/17/17 07:10 05/17/17 07:10 05/17/17 07:10 05/17/17 07:10 Intake and Output: 05/17/17 05/17/17 06:59 18:59 Intake Total 240 480 Output Total 900 250 Balance -660 230 - Medications Medications: Current Medications Chlordiazepoxide (Librium) 25 mg PO Q4 PRN PRN Reason: Agitation Last Admin: 05/15/17 16:23 Dose: 25 mg Chlordiazepoxide (Librium) 25 mg PO BID [facility] PRN Reason: Taper Stop: 05/18/17 23:59 Last Admin: 05/17/17 09:48 Dose: 25 mg Clonidine HCl (Catapres) 0.1 mg PO Q4H PRN PRN Reason: Symptoms of alcohol withdrawl Enoxaparin Sodium (Lovenox) 40 mg SC DAILY [facility] Last Admin: 05/17/17 09:48 Dose: 40 mg Folic Acid (Folic Acid) 1 mg PO DAILY [facility] Last Admin: 05/17/17 09:48 Dose: 1 mg Gabapentin (Neurontin) 300 mg PO BID [facility] Last Admin: 05/17/17 09:48 Dose: 300 mg Levothyroxine Sodium (Synthroid) 25 mcg PO ACB [facility] Last Admin: 05/17/17 06:35 Dose: 25 mcg Multivitamins (Hexavitamin) 1 tab PO DAILY [facility] Last Admin: 05/17/17 09:48 Dose: 1 tab Pantoprazole Sodium (Protonix Ec Tab) 40 mg PO DAILY [facility] Last Admin: 05/17/17 09:48 Dose: 40 mg Thiamine HCl (Vitamin B1 Tab) 100 mg PO DAILY [facility] Last Admin: 05/17/17 09:48 Dose: 100 mg - Labs Labs: 05/17/17 11:37 05/17/17 11:37 - Constitutional Appears: Well - Head Exam Head Exam: ATRAUMATIC, NORMAL INSPECTION, NORMOCEPHALIC - Eye Exam Eye Exam: EOMI, Normal appearance, PERRL Pupil Exam: NORMAL ACCOMODATION, PERRL - ENT Exam ENT Exam: Mucous Membranes Moist, Normal Exam - Neck Exam Neck Exam: Full ROM, Normal Inspection. absent: Lymphadenopathy - Respiratory Exam Respiratory Exam: Decreased Breath Sounds - Cardiovascular Exam Cardiovascular Exam: REGULAR RHYTHM, +S1, +S2 - GI/Abdominal Exam GI & Abdominal Exam: Soft, Diminished Bowel Sounds - Rectal Exam Rectal Exam: Deferred Assessment and Plan (1) Alcohol withdrawal seizure Status: Acute (2) Acute hyponatremia Status: Acute (3) Alcohol intoxication Status: Acute (4) Delirium tremens Status: Acute (5) Fever, low grade Status: Acute (6) Tonic-clonic seizure Status: Acute
[2017-05-18 00:35] LABS: HEMOGLOBIN 13.1 g/dL (12.0-18.0); MEAN CELL VOLUME 90.4 fL (80.0-94.0); MEAN CORPUSCULAR HEMOGLOBIN 31.9 pg (27.0-31.0); MEAN CORPUSCULAR HGB CONC 35.3 g/dL (33.0-37.0); MEAN PLATELET VOLUME 8.9 fL (7.2-11.7); RBC 4.11 Mil/uL (4.40-5.90); RED CELL DISTRIBUTION WIDTH 13.6 % (11.5-14.5); WHITE BLOOD COUNT 9.8 K/uL (4.8-10.8)
[2017-05-18 00:49] LABS: ALB/GLOB RATIO 1.1 (1.0-2.1); ALBUMIN 3.8 g/dL (3.5-5.0); ALT/SGPT 45 U/L (21-72); AST/SGOT 114 U/L (17-59); BLOOD UREA NITROGEN 26 mg/dL (9-20); CALCIUM 8.5 mg/dl (8.6-10.4); GFR AFRICAN-AMERICAN > 60; GFR NON-AFRICAN AMERICAN > 60
[2017-05-18] MEDS: Pantoprazole 40 mg EC Tab PO SCH ×2 (09:08→13:13)
[2017-05-18] MEDS: Multiple Vitamins Tab PO SCH (09:08)
[2017-05-18] MEDS: Levothyroxine 25 MCG TAB PO SCH (09:14)
[2017-05-18] MEDS: Enoxaparin 40 mg Syringe SC SCH (12:26)
--- NOTE | 2017-05-18 12:29 | CP.PCM.CON ---
History of Present Illness - History of Present Illness History of Present Illness: COVERING DR CADET/JARETH 66 yo H male who had a screening colonoscopy with Dr Cadet last year admitted with alcohol withdrawl seizure five days ago. Family reports patient drinks regularly and has a seizure each time he stops. No etoh for one week per patient. Alcohol level 0 in admission. Called due to dark liquid stool yesterday and once this am. No acute change in Hgb which remains 13. No CP, SOB , N/V, fever or chills. Colonoscopy report shows inadequate preparation with stool seen throughout the colon in 11/2016. Review of Systems - Review of Systems Systems not reviewed;Unavailable: Altered Mental Status Past Patient History - Infectious Disease Hx of Infectious Diseases: None - Past Medical History & Family History Past Medical History?: No - Past Social History Smoking Status: Unknown If Ever Smoked - CARDIAC Hx Cardiac Disorders: No Hx Heart Attack: No - PULMONARY Hx Respiratory Disorders: No Hx Sleep Apnea: No - NEUROLOGICAL Hx Neurological Disorder: Yes Hx Seizures: Yes (ETOH Related.) Hx Transient Ischemic Attacks (TIA): No - HEENT Hx HEENT Problems: No - RENAL Hx Chronic Kidney Disease: No - ENDOCRINE/METABOLIC Hx Endocrine Disorders: Yes Hx Hyperthyroidism: Yes - HEMATOLOGICAL/ONCOLOGICAL Hx Blood Disorders: No Hx Blood Transfusions: No Hx Hepatitis A: No Hx Hepatitis B: No Hx Hepatitis C: No Hx Human Immunodeficiency Virus (HIV): No - INTEGUMENTARY Hx Dermatological Problems: No - MUSCULOSKELETAL/RHEUMATOLOGICAL Hx Musculoskeletal Disorders: Yes Hx Falls: Yes (ETOH Abuse) - GASTROINTESTINAL Hx Gastrointestinal Disorders: No - GENITOURINARY/GYNECOLOGICAL Hx Genitourinary Disorders: No - PSYCHIATRIC Hx Psychophysiologic Disorder: No Hx Substance Use: No Other/Comment: ETOH Abuse - SURGICAL HISTORY Hx Surgeries: Yes Hx Orthopedic Surgery: Yes (Wrist Surgery.) - ANESTHESIA Hx Anesthesia: Yes Hx Anesthesia Reactions: No Hx Malignant Hyperthermia: No Meds Allergies/Adverse Reactions: Allergies Allergy/AdvReac Type Severity Reaction Status Date / Time No Known Allergies Allergy Verified 05/14/17 17:25 - Medications Medications: Current Medications Chlordiazepoxide (Librium) 25 mg PO Q4 PRN PRN Reason: Agitation Last Admin: 05/15/17 16:23 Dose: 25 mg Chlordiazepoxide (Librium) 25 mg PO DAILY [facility] PRN Reason: Taper Stop: 05/18/17 23:59 Last Admin: 05/18/17 09:08 Dose: 25 mg Clonidine HCl (Catapres) 0.1 mg PO Q4H PRN PRN Reason: Symptoms of alcohol withdrawl Enoxaparin Sodium (Lovenox) 40 mg SC DAILY [facility] Last Admin: 05/18/17 12:26 Dose: Not Given Folic Acid (Folic Acid) 1 mg PO DAILY [facility] Last Admin: 05/18/17 09:08 Dose: 1 mg Gabapentin (Neurontin) 300 mg PO BID [facility] Last Admin: 05/18/17 09:08 Dose: 300 mg Levothyroxine Sodium (Synthroid) 25 mcg PO ACB [facility] Last Admin: 05/18/17 09:14 Dose: Not Given Multivitamins (Hexavitamin) 1 tab PO DAILY [facility] Last Admin: 05/18/17 09:08 Dose: 1 tab Pantoprazole Sodium (Protonix Ec Tab) 40 mg PO DAILY [facility] Last Admin: 05/18/17 09:08 Dose: 40 mg Thiamine HCl (Vitamin B1 Tab) 100 mg PO DAILY [facility] Last Admin: 05/18/17 09:08 Dose: 100 mg Physical Exam - Constitutional Appears: No Acute Distress, Confused Additional comments: Speaks only welsh - Head Exam Head Exam: ATRAUMATIC, NORMOCEPHALIC - Eye Exam Eye Exam: EOMI, PERRL - Respiratory Exam Respiratory Exam: NORMAL BREATHING PATTERN - Cardiovascular Exam Cardiovascular Exam: REGULAR RHYTHM - GI/Abdominal Exam GI & Abdominal Exam: Normal Bowel Sounds, Organomegaly, Soft. absent: Mass, Rebound, Tenderness - Rectal Exam Additional comments: tinge of dark liquid stool heme + - Extremities Exam Extremities exam: Positive for: normal inspection - Psychiatric Exam Psychiatric exam: Normal Affect, Normal Mood - Skin Skin Exam: Dry, Warm Results - Vital Signs Recent Vital Signs: Last Vital Signs Temp 97.8 F 05/18/17 07:15 Pulse 103 H 05/18/17 07:15 Resp 20 05/18/17 07:15 BP 111/75 05/18/17 07:15 Pulse Ox 95 05/18/17 07:15 - Labs Result Diagrams: 05/18/17 00:26 05/18/17 00:26 Labs: Laboratory Results - last 24 hr 05/17/17 05/18/17 05/18/17 21:10 00:26 00:26 WBC 9.8 RBC 4.11 L Hgb 13.1 Hct 37.2 MCV 90.4 MCH 31.9 H MCHC 35.3 RDW 13.6 Plt Count 166 MPV 8.9 Sodium 131 L Potassium 3.3 L Chloride 95 L Carbon Dioxide 25 Anion Gap 14 BUN 26 H Creatinine 0.8 Est GFR ( Amer) > 60 Est GFR (Non-Af Amer) > 60 POC Glucose (mg/dL) 136 H Random Glucose 124 H Calcium 8.5 L Total Bilirubin 1.8 H AST 114 H ALT 45 Alkaline Phosphatase 71 Total Protein 7.2 Albumin 3.8 Globulin 3.4 Albumin/Globulin Ratio 1.1 Assessment & Plan (1) Gastrointestinal hemorrhage Assessment and Plan: Monitor H/H. Would stop Lovenox in view of occult blood loss. EGD tomorrow if stable, will keep NPO after midnight. Protonix BID. Stool for OBx3. Will likely warrant repeat colonoscopy as well with adequate preparation before discharge or as outpatient. Status: Acute (2) Delirium tremens Assessment and Plan: per Neuro/psych. Status: Acute
[2017-05-18] MEDS ORDERED: Influenza Vaccine 60 mcg/0.5 mL SYR (4YR UP) IM ONE (13:34)
[2017-05-18] MEDS: Potassium Chloride 20 mEq/15 ml LIQ UD PO SCH ×2 (14:16→18:03)
--- NOTE | 2017-05-18 14:29 | CP.PCM.PN ---
Subjective - Date & Time of Evaluation Date of Evaluation: 05/18/17 Time of Evaluation: 10:00 - Subjective Subjective: clinically same Objective - Vital Signs/Intake and Output Vital Signs (last 24 hours): Temp Pulse Resp BP Pulse Ox 97.8 F 103 H 20 111/75 95 05/18/17 07:15 05/18/17 07:15 05/18/17 07:15 05/18/17 07:15 05/18/17 07:15 Intake and Output: 05/18/17 05/18/17 06:59 18:59 Intake Total 300 50 Balance 300 50 - Medications Medications: Current Medications Chlordiazepoxide (Librium) 25 mg PO Q4 PRN PRN Reason: Agitation Last Admin: 05/15/17 16:23 Dose: 25 mg Chlordiazepoxide (Librium) 25 mg PO DAILY [facility] PRN Reason: Taper Stop: 05/18/17 23:59 Last Admin: 05/18/17 09:08 Dose: 25 mg Clonidine HCl (Catapres) 0.1 mg PO Q4H PRN PRN Reason: Symptoms of alcohol withdrawl Folic Acid (Folic Acid) 1 mg PO DAILY [facility] Last Admin: 05/18/17 09:08 Dose: 1 mg Gabapentin (Neurontin) 300 mg PO BID [facility] Last Admin: 05/18/17 09:08 Dose: 300 mg Levothyroxine Sodium (Synthroid) 25 mcg PO ACB [facility] Last Admin: 05/18/17 09:14 Dose: Not Given Multivitamins (Hexavitamin) 1 tab PO DAILY [facility] Last Admin: 05/18/17 09:08 Dose: 1 tab Pantoprazole Sodium (Protonix Ec Tab) 40 mg PO Q12H [facility] Last Admin: 05/18/17 13:13 Dose: Not Given Potassium Chloride (Potassium Chloride Oral Soln) 40 meq PO Q4H [facility] Stop: 05/18/17 18:01 Last Admin: 05/18/17 14:16 Dose: 40 meq Thiamine HCl (Vitamin B1 Tab) 100 mg PO DAILY [facility] Last Admin: 05/18/17 09:08 Dose: 100 mg - Labs Labs: 05/18/17 00:26 05/18/17 00:26 - Constitutional Appears: Well - Head Exam Head Exam: ATRAUMATIC, NORMAL INSPECTION, NORMOCEPHALIC - Eye Exam Eye Exam: EOMI, Normal appearance, PERRL Pupil Exam: NORMAL ACCOMODATION, PERRL - ENT Exam ENT Exam: Mucous Membranes Moist, Normal Exam - Neck Exam Neck Exam: Full ROM, Normal Inspection. absent: Lymphadenopathy - Respiratory Exam Respiratory Exam: Decreased Breath Sounds - Cardiovascular Exam Cardiovascular Exam: REGULAR RHYTHM, +S1, +S2 - GI/Abdominal Exam GI & Abdominal Exam: Soft, Diminished Bowel Sounds - Rectal Exam Rectal Exam: Deferred Assessment and Plan (1) Alcohol withdrawal seizure Status: Acute (2) Acute hyponatremia Status: Acute (3) Alcohol intoxication Status: Acute (4) Delirium tremens Status: Acute (5) Fever, low grade Status: Acute (6) Tonic-clonic seizure Status: Acute
[2017-05-18] MEDS ORDERED: Potassium Chloride 20 mEq ER Tab PO STA (22:03)
[2017-05-19] MEDS: Pantoprazole 40 mg EC Tab PO SCH ×2 (01:39→13:59)
[2017-05-19] MEDS: Levothyroxine 25 MCG TAB PO SCH (06:53)
[2017-05-19 07:38] LABS: HEMOGLOBIN 12.4 g/dL (12.0-18.0); MEAN CELL VOLUME 89.8 fL (80.0-94.0); MEAN CORPUSCULAR HEMOGLOBIN 31.9 pg (27.0-31.0); MEAN CORPUSCULAR HGB CONC 35.5 g/dL (33.0-37.0); RBC 3.88 Mil/uL (4.40-5.90); RED CELL DISTRIBUTION WIDTH 13.1 % (11.5-14.5); WHITE BLOOD COUNT 8.7 K/uL (4.8-10.8)
[2017-05-19 08:48] LABS: HEPATITIS B SURFACE AG Negative (NEGATIVE)
[2017-05-19 08:53] LABS: HEPATITIS B CORE AB NEGATIVE (NEGATIVE)
[2017-05-19 09:05] LABS: HEPATITIS C ANTIBODY NEGATIVE (NEGATIVE)
[2017-05-19] MEDS: Multiple Vitamins Tab PO SCH (11:19)
[2017-05-19 12:27] LABS: ALB/GLOB RATIO 1.1 (1.0-2.1); ALBUMIN 3.7 g/dL (3.5-5.0); ALT/SGPT 74 U/L (21-72); AST/SGOT 170 U/L (17-59); BLOOD UREA NITROGEN 16 mg/dL (9-20); CALCIUM 9.2 mg/dl (8.6-10.4); GFR AFRICAN-AMERICAN > 60; GFR NON-AFRICAN AMERICAN > 60
--- NOTE | 2017-05-19 13:01 | CP.PCM.PN ---
Subjective - Date & Time of Evaluation Date of Evaluation: 05/19/17 Time of Evaluation: 13:00 - Subjective Subjective: progress note- norm schultz pt seen and examined at bedside. no acute distress. pt minimally answering questions. no fevers, chills, vomiting, diarrhea. gi following Objective - Vital Signs/Intake and Output Vital Signs (last 24 hours): Temp Pulse Resp BP Pulse Ox 98.3 F 103 H 20 107/71 95 05/19/17 07:31 05/19/17 07:31 05/19/17 07:31 05/19/17 07:31 05/19/17 07:31 Intake and Output: 05/19/17 05/19/17 06:59 18:59 Intake Total 150 Balance 150 - Medications Medications: Current Medications Chlordiazepoxide (Librium) 25 mg PO Q4 PRN PRN Reason: Agitation Last Admin: 05/15/17 16:23 Dose: 25 mg Clonidine HCl (Catapres) 0.1 mg PO Q4H PRN PRN Reason: Symptoms of alcohol withdrawl Folic Acid (Folic Acid) 1 mg PO DAILY [facility] Last Admin: 05/19/17 11:19 Dose: 1 mg Gabapentin (Neurontin) 300 mg PO BID [facility] Last Admin: 05/19/17 11:19 Dose: 300 mg Levothyroxine Sodium (Synthroid) 25 mcg PO ACB [facility] Last Admin: 05/19/17 06:53 Dose: 25 mcg Multivitamins (Hexavitamin) 1 tab PO DAILY [facility] Last Admin: 05/19/17 11:19 Dose: 1 tab Pantoprazole Sodium (Protonix Ec Tab) 40 mg PO Q12H [facility] Last Admin: 05/19/17 01:39 Dose: 40 mg Thiamine HCl (Vitamin B1 Tab) 100 mg PO DAILY [facility] Last Admin: 05/19/17 11:19 Dose: 100 mg - Labs Labs: 05/19/17 07:35 05/19/17 11:43 - Constitutional Appears: Non-toxic, No Acute Distress, Chronically Ill - Head Exam Head Exam: ATRAUMATIC, NORMAL INSPECTION, NORMOCEPHALIC - Eye Exam Eye Exam: EOMI - ENT Exam ENT Exam: Mucous Membranes Moist - Neck Exam Neck Exam: Full ROM, Normal Inspection - Respiratory Exam Respiratory Exam: NORMAL BREATHING PATTERN. absent: Respiratory Distress - Cardiovascular Exam Cardiovascular Exam: +S1, +S2 - GI/Abdominal Exam GI & Abdominal Exam: Soft, Normal Bowel Sounds. absent: Tenderness - Extremities Exam Extremities Exam: Full ROM, Normal Inspection - Neurological Exam Neurological Exam: CN II-XII Intact. absent: Oriented x3 - Psychiatric Exam Psychiatric exam: Flat Affect - Skin Skin Exam: Dry, Intact, Normal Color, Warm Assessment and Plan - Assessment and Plan (Free Text) Assessment: this is a 66 yo male with past medical hx of alcoholism with 1. alcohol withdrawal -cont gabapentin bid -continue folic acid continue clonidine prn -continue thiamine -continue protonix -gi. martinez following -head ct negative 2. alcoholic liver disease -gi following -hep panel pending 3. hx of hypothyroidism -continue synthroid 4. gi/dvt -continue protonix -continue scds dw dr. schultz -
[2017-05-19] MEDS ORDERED: Propofol 10 mg/ml Inj (20 ML) ONE (15:02)
[2017-05-19] MEDS ORDERED: Midazolam 2 MG/2 ML VIAL ONE (15:02)
[2017-05-19] MEDS ORDERED: HYDROmorphone 0.5 mg/0.5 ml ISec IVP PRN (15:24)
--- NOTE | 2017-05-19 19:31 | CP.PCM.PN ---
Subjective - Date & Time of Evaluation Date of Evaluation: 05/19/17 Time of Evaluation: 09:00 - Subjective Subjective: clinically same Objective - Vital Signs/Intake and Output Vital Signs (last 24 hours): Temp Pulse Resp BP Pulse Ox 97.9 F 97 H 20 129/80 96 05/19/17 16:12 05/19/17 16:12 05/19/17 16:12 05/19/17 16:12 05/19/17 16:12 Intake and Output: 05/19/17 05/20/17 18:59 06:59 Intake Total 370 Balance 370 - Medications Medications: Current Medications Chlordiazepoxide (Librium) 25 mg PO Q4 PRN PRN Reason: Agitation Last Admin: 05/15/17 16:23 Dose: 25 mg Clonidine HCl (Catapres) 0.1 mg PO Q4H PRN PRN Reason: Symptoms of alcohol withdrawl Folic Acid (Folic Acid) 1 mg PO DAILY [facility] Last Admin: 05/19/17 11:19 Dose: 1 mg Gabapentin (Neurontin) 300 mg PO BID [facility] Last Admin: 05/19/17 17:46 Dose: 300 mg Levothyroxine Sodium (Synthroid) 25 mcg PO ACB [facility] Last Admin: 05/19/17 06:53 Dose: 25 mcg Multivitamins (Hexavitamin) 1 tab PO DAILY [facility] Last Admin: 05/19/17 11:19 Dose: 1 tab Pantoprazole Sodium (Protonix Ec Tab) 40 mg PO Q12H [facility] Last Admin: 05/19/17 13:59 Dose: Not Given Thiamine HCl (Vitamin B1 Tab) 100 mg PO DAILY [facility] Last Admin: 05/19/17 11:19 Dose: 100 mg - Labs Labs: 05/19/17 07:35 05/19/17 11:43 Assessment and Plan (1) Alcohol withdrawal seizure Status: Acute (2) Acute hyponatremia Status: Acute (3) Alcohol intoxication Status: Acute (4) Delirium tremens Status: Acute (5) Fever, low grade Status: Acute (6) Tonic-clonic seizure Status: Acute - Assessment and Plan (Free Text) Plan: Patient status post endoscopy patient wants to go home patient advised to resume the regular diet, biopsy was performed found - gastritis normal esophagus Thiamine MVI Watch for the seizures and DTs precaution Patient is not agitated anymore
[2017-05-19] MEDS ORDERED: Piperacillin/Tazobact 3.375 GM in Sodium Chloride 100 ML IVPB SCH (22:30)
[2017-05-19] MEDS: Piperacill/Tazo 3.375gm in Dex 3.375 GM/50 ML BAG IVPB SCH (22:48)
[2017-05-19] MEDS: Vancomycin 1 gm/NS 200 ml 1 GM/200 ML BAG IVPB SCH (23:19)
[2017-05-20] MEDS: Pantoprazole 40 mg EC Tab PO SCH ×2 (00:52→12:09)
[2017-05-20] MEDS: Levothyroxine 25 MCG TAB PO SCH ×2 (06:10→07:36)
[2017-05-20] MEDS: Piperacill/Tazo 3.375gm in Dex 3.375 GM/50 ML BAG IVPB SCH ×3 (06:11→16:44)
[2017-05-20 08:03] LABS: BASO % 0.3 % (0.0-2.0); EOS # 0.2 K/uL (0.0-0.7); EOS % 2.9 % (0.0-4.0); HEMOGLOBIN 12.2 g/dL (12.0-18.0); LYMPH # 0.8 K/uL (1.0-4.3); LYMPH % 10.9 % (20.0-40.0); MEAN CELL VOLUME 89.8 fL (80.0-94.0); MEAN CORPUSCULAR HGB CONC 35.7 g/dL (33.0-37.0); MEAN PLATELET VOLUME 7.9 fL (7.2-11.7); MONO # 1.2 K/uL (0.0-0.8); MONO % 17.5 % (0.0-10.0); NEUT # 4.8 K/uL (1.8-7.0); NEUT % 68.4 % (50.0-75.0); RBC 3.81 Mil/uL (4.40-5.90); RED CELL DISTRIBUTION WIDTH 13.2 % (11.5-14.5); WHITE BLOOD COUNT 7.1 K/uL (4.8-10.8)
--- NOTE | 2017-05-20 08:24 | CP.PCM.PN ---
Subjective - Date & Time of Evaluation Date of Evaluation: 05/20/17 Time of Evaluation: 08:15 - Subjective Subjective: F/U gi bleed Denies CP SOB, fever, [place], cough, RB, melena, hematemesis, hematuria, hemoptysis. Pt seen with aid present. Objective - Vital Signs/Intake and Output Vital Signs (last 24 hours): Temp Pulse Resp BP Pulse Ox 99.1 F 90 20 102/69 95 05/20/17 07:28 05/20/17 07:28 05/20/17 07:28 05/20/17 07:28 05/20/17 07:28 Intake and Output: 05/20/17 05/20/17 06:59 18:59 Intake Total 860 Output Total 250 Balance 610 - Medications Medications: Current Medications Chlordiazepoxide (Librium) 25 mg PO Q4 PRN PRN Reason: Agitation Last Admin: 05/20/17 00:38 Dose: 25 mg Clonidine HCl (Catapres) 0.1 mg PO Q4H PRN PRN Reason: Symptoms of alcohol withdrawl Folic Acid (Folic Acid) 1 mg PO DAILY [facility] Last Admin: 05/19/17 11:19 Dose: 1 mg Gabapentin (Neurontin) 300 mg PO BID [facility] Last Admin: 05/19/17 17:46 Dose: 300 mg Vancomycin/Sodium Chloride (Vancomycin 1 Gm/Ns 200 Ml) 1 gm in 200 mls @ 133 mls/hr IVPB Q24H [facility] Stop: 05/24/17 23:01 Last Admin: 05/19/17 23:19 Dose: 133 mls/hr Piperacillin Sod/Tazobactam Sod (Zosyn 3.375 Gm Iv Premix) 3.375 gm in 50 mls @ 100 mls/hr IVPB Q6H [facility] Last Admin: 05/20/17 06:11 Dose: 100 mls/hr Levothyroxine Sodium (Synthroid) 25 mcg PO ACB [facility] Last Admin: 05/20/17 07:36 Dose: Not Given Multivitamins (Hexavitamin) 1 tab PO DAILY [facility] Last Admin: 05/19/17 11:19 Dose: 1 tab Pantoprazole Sodium (Protonix Ec Tab) 40 mg PO Q12H [facility] Last Admin: 05/20/17 00:52 Dose: 40 mg Thiamine HCl (Vitamin B1 Tab) 100 mg PO DAILY [facility] Last Admin: 05/19/17 11:19 Dose: 100 mg - Labs Labs: 05/20/17 07:51 05/19/17 11:43 - Constitutional Appears: Non-toxic - Respiratory Exam Respiratory Exam: Clear to Ausculation Bilateral - Cardiovascular Exam Cardiovascular Exam: RRR - GI/Abdominal Exam GI & Abdominal Exam: Soft, Normal Bowel Sounds. absent: Guarding, Tenderness - Neurological Exam Neurological Exam: Alert, Awake Assessment and Plan (1) Alcohol dependence with uncomplicated withdrawal Status: Acute (2) Gastrointestinal hemorrhage Assessment & Plan: EGD- gastrtis. Consider outpatient colonsocopy. Continue protonix. [place] diet Status: Acute (3) Alcohol intoxication Status: Acute (4) Transaminasemia Assessment & Plan: alcohol liver disease. Status: Acute
[2017-05-20 08:44] LABS: ALB/GLOB RATIO 1.1 (1.0-2.1); ALBUMIN 3.7 g/dL (3.5-5.0); ALT/SGPT 75 U/L (21-72); AST/SGOT 136 U/L (17-59); BLOOD UREA NITROGEN 16 mg/dL (9-20); CALCIUM 9.1 mg/dl (8.6-10.4); GFR AFRICAN-AMERICAN > 60; GFR NON-AFRICAN AMERICAN > 60
--- NOTE | 2017-05-20 11:32 | CP.PCM.PN ---
Subjective - Date & Time of Evaluation Date of Evaluation: 05/20/17 Time of Evaluation: 11:30 - Subjective Subjective: progress note- norm schultz. pt seen and examined at bedside. no complaints. no fevers, chills, vomiting, diarrhea. pt wants to go home. id consulted. Objective - Vital Signs/Intake and Output Vital Signs (last 24 hours): Temp Pulse Resp BP Pulse Ox 99.1 F 90 20 102/69 95 05/20/17 07:28 05/20/17 07:28 05/20/17 07:28 05/20/17 07:28 05/20/17 07:28 Intake and Output: 05/20/17 05/20/17 06:59 18:59 Intake Total 860 Output Total 250 Balance 610 - Medications Medications: Current Medications Chlordiazepoxide (Librium) 25 mg PO Q4 PRN PRN Reason: Agitation Last Admin: 05/20/17 00:38 Dose: 25 mg Clonidine HCl (Catapres) 0.1 mg PO Q4H PRN PRN Reason: Symptoms of alcohol withdrawl Folic Acid (Folic Acid) 1 mg PO DAILY [facility] Last Admin: 05/19/17 11:19 Dose: 1 mg Gabapentin (Neurontin) 300 mg PO BID [facility] Last Admin: 05/19/17 17:46 Dose: 300 mg Vancomycin/Sodium Chloride (Vancomycin 1 Gm/Ns 200 Ml) 1 gm in 200 mls @ 133 mls/hr IVPB Q24H [facility] Stop: 05/24/17 23:01 Last Admin: 05/19/17 23:19 Dose: 133 mls/hr Piperacillin Sod/Tazobactam Sod (Zosyn 3.375 Gm Iv Premix) 3.375 gm in 50 mls @ 100 mls/hr IVPB Q6H [facility] Last Admin: 05/20/17 06:11 Dose: 100 mls/hr Levothyroxine Sodium (Synthroid) 25 mcg PO ACB [facility] Last Admin: 05/20/17 07:36 Dose: Not Given Multivitamins (Hexavitamin) 1 tab PO DAILY [facility] Last Admin: 05/19/17 11:19 Dose: 1 tab Pantoprazole Sodium (Protonix Ec Tab) 40 mg PO Q12H [facility] Last Admin: 05/20/17 00:52 Dose: 40 mg Thiamine HCl (Vitamin B1 Tab) 100 mg PO DAILY [facility] Last Admin: 05/19/17 11:19 Dose: 100 mg - Labs Labs: 05/20/17 07:51 05/20/17 07:51 - Constitutional Appears: Non-toxic, No Acute Distress - Head Exam Head Exam: ATRAUMATIC, NORMAL INSPECTION, NORMOCEPHALIC - Eye Exam Eye Exam: EOMI - ENT Exam ENT Exam: Mucous Membranes Moist - Respiratory Exam Respiratory Exam: absent: Respiratory Distress - Cardiovascular Exam Cardiovascular Exam: +S1, +S2 - GI/Abdominal Exam GI & Abdominal Exam: Soft, Normal Bowel Sounds. absent: Tenderness - Extremities Exam Extremities Exam: Full ROM, Normal Inspection - Back Exam Back Exam: NORMAL INSPECTION - Neurological Exam Neurological Exam: Alert, Awake, Oriented x3 - Psychiatric Exam Psychiatric exam: Normal Affect, Normal Mood - Skin Skin Exam: Dry, Intact, Normal Color, Warm Assessment and Plan - Assessment and Plan (Free Text) Assessment: this is a 66 yo male with past medical hx of alcoholism with 1. alcohol withdrawal -cont gabapentin bid -continue folic acid continue clonidine prn -continue thiamine -continue protonix -gi. martinez following -head ct negative -outpatient colonoscopy recommended 2. fever -cultures pending -vanco and zosyn started -id consulted 2. alcoholic liver disease -gi following -hep panel pending 3. hx of hypothyroidism -continue synthroid 4. gi/dvt -continue protonix -continue scds dw dr. schultz -
--- NOTE | 2017-05-20 11:41 | CP.PCM.CON ---
History of Present Illness - History of Present Illness History of Present Illness: 66 y/o with chronic ETOH dependence and hx of withdrawal seizures. started spiking feveres septic work up pending iv rx in progress Past Patient History - Infectious Disease Hx of Infectious Diseases: None - Past Medical History & Family History Past Medical History?: No - Past Social History Smoking Status: Unknown If Ever Smoked - CARDIAC Hx Cardiac Disorders: No Hx Heart Attack: No - PULMONARY Hx Respiratory Disorders: No Hx Sleep Apnea: No - NEUROLOGICAL Hx Neurological Disorder: Yes Hx Seizures: Yes (ETOH Related.) Hx Transient Ischemic Attacks (TIA): No - HEENT Hx HEENT Problems: No - RENAL Hx Chronic Kidney Disease: No - ENDOCRINE/METABOLIC Hx Endocrine Disorders: Yes Hx Hyperthyroidism: Yes - HEMATOLOGICAL/ONCOLOGICAL Hx Blood Disorders: No Hx Blood Transfusions: No Hx Hepatitis A: No Hx Hepatitis B: No Hx Hepatitis C: No Hx Human Immunodeficiency Virus (HIV): No - INTEGUMENTARY Hx Dermatological Problems: No - MUSCULOSKELETAL/RHEUMATOLOGICAL Hx Musculoskeletal Disorders: Yes Hx Falls: Yes (ETOH Abuse) - GASTROINTESTINAL Hx Gastrointestinal Disorders: No - GENITOURINARY/GYNECOLOGICAL Hx Genitourinary Disorders: No - PSYCHIATRIC Hx Psychophysiologic Disorder: No Hx Substance Use: No Other/Comment: ETOH Abuse - SURGICAL HISTORY Hx Surgeries: Yes Hx Orthopedic Surgery: Yes (Wrist Surgery.) - ANESTHESIA Hx Anesthesia: Yes Hx Anesthesia Reactions: No Hx Malignant Hyperthermia: No Meds Allergies/Adverse Reactions: Allergies Allergy/AdvReac Type Severity Reaction Status Date / Time No Known Allergies Allergy Verified 05/14/17 17:25 - Medications Medications: Current Medications Chlordiazepoxide (Librium) 25 mg PO Q4 PRN PRN Reason: Agitation Last Admin: 05/20/17 00:38 Dose: 25 mg Clonidine HCl (Catapres) 0.1 mg PO Q4H PRN PRN Reason: Symptoms of alcohol withdrawl Folic Acid (Folic Acid) 1 mg PO DAILY [facility] Last Admin: 05/19/17 11:19 Dose: 1 mg Gabapentin (Neurontin) 300 mg PO BID [facility] Last Admin: 05/19/17 17:46 Dose: 300 mg Vancomycin/Sodium Chloride (Vancomycin 1 Gm/Ns 200 Ml) 1 gm in 200 mls @ 133 mls/hr IVPB Q24H [facility] Stop: 05/24/17 23:01 Last Admin: 05/19/17 23:19 Dose: 133 mls/hr Piperacillin Sod/Tazobactam Sod (Zosyn 3.375 Gm Iv Premix) 3.375 gm in 50 mls @ 100 mls/hr IVPB Q6H [facility] Last Admin: 05/20/17 06:11 Dose: 100 mls/hr Levothyroxine Sodium (Synthroid) 25 mcg PO ACB [facility] Last Admin: 05/20/17 07:36 Dose: Not Given Multivitamins (Hexavitamin) 1 tab PO DAILY [facility] Last Admin: 05/19/17 11:19 Dose: 1 tab Pantoprazole Sodium (Protonix Ec Tab) 40 mg PO Q12H [facility] Last Admin: 05/20/17 00:52 Dose: 40 mg Thiamine HCl (Vitamin B1 Tab) 100 mg PO DAILY [facility] Last Admin: 05/19/17 11:19 Dose: 100 mg Results - Vital Signs Recent Vital Signs: Last Vital Signs Temp 99.1 F 05/20/17 07:28 Pulse 90 05/20/17 07:28 Resp 20 05/20/17 07:28 BP 102/69 05/20/17 07:28 Pulse Ox 95 05/20/17 07:28 - Labs Result Diagrams: 05/20/17 07:51 05/20/17 07:51 Labs: Laboratory Results - last 24 hr 05/19/17 05/20/17 05/20/17 11:43 07:51 07:51 WBC 7.1 RBC 3.81 L Hgb 12.2 Hct 34.2 L MCV 89.8 MCH 32.0 H MCHC 35.7 RDW 13.2 Plt Count 218 MPV 7.9 Neut % (Auto) 68.4 Lymph % (Auto) 10.9 L Hale % (Auto) 17.5 H Eos % (Auto) 2.9 Baso % (Auto) 0.3 Neut # (Auto) 4.8 Lymph # (Auto) 0.8 L Hale # (Auto) 1.2 H Eos # (Auto) 0.2 Baso # (Auto) 0.0 Sodium 130 L 134 Potassium 4.3 3.7 Chloride 97 L 97 L Carbon Dioxide 24 26 Anion Gap 13 14 BUN 16 16 Creatinine 0.7 L 0.8 Est GFR ( Amer) > 60 > 60 Est GFR (Non-Af Amer) > 60 > 60 Random Glucose 131 H 111 H Calcium 9.2 9.1 Total Bilirubin 1.3 1.0 AST 170 H D 136 H ALT 74 H D 75 H Alkaline Phosphatase 69 76 Total Protein 7.1 7.0 Albumin 3.7 3.7 Globulin 3.4 3.3 Albumin/Globulin Ratio 1.1 1.1
[2017-05-20] MEDS: Multiple Vitamins Tab PO SCH (12:09)
--- NOTE | 2017-05-20 16:51 | CP.PCM.PN ---
Subjective - Date & Time of Evaluation Date of Evaluation: 05/20/17 Time of Evaluation: 09:00 - Subjective Subjective: clinically same Objective - Vital Signs/Intake and Output Vital Signs (last 24 hours): Temp Pulse Resp BP Pulse Ox 98.1 F 96 H 20 100/67 100 05/20/17 15:00 05/20/17 15:00 05/20/17 15:00 05/20/17 15:00 05/20/17 15:00 Intake and Output: 05/20/17 05/20/17 06:59 18:59 Intake Total 860 50 Output Total 250 Balance 610 50 - Medications Medications: Current Medications Chlordiazepoxide (Librium) 25 mg PO Q4 PRN PRN Reason: Agitation Last Admin: 05/20/17 00:38 Dose: 25 mg Clonidine HCl (Catapres) 0.1 mg PO Q4H PRN PRN Reason: Symptoms of alcohol withdrawl Folic Acid (Folic Acid) 1 mg PO DAILY [facility] Last Admin: 05/20/17 12:13 Dose: 1 mg Gabapentin (Neurontin) 300 mg PO BID [facility] Last Admin: 05/20/17 12:09 Dose: 300 mg Vancomycin/Sodium Chloride (Vancomycin 1 Gm/Ns 200 Ml) 1 gm in 200 mls @ 133 mls/hr IVPB Q24H [facility] Stop: 05/24/17 23:01 Last Admin: 05/19/17 23:19 Dose: 133 mls/hr Piperacillin Sod/Tazobactam Sod (Zosyn 3.375 Gm Iv Premix) 3.375 gm in 50 mls @ 100 mls/hr IVPB Q6H [facility] Stop: 05/20/17 21:00 Last Admin: 05/20/17 16:44 Dose: 100 mls/hr Piperacillin Sod/Tazobactam (Sod 3.375 gm/ Sodium Chloride) 100 mls @ 100 mls/ hr IVPB Q6H [facility] Levothyroxine Sodium (Synthroid) 25 mcg PO ACB [facility] Last Admin: 05/20/17 07:36 Dose: Not Given Multivitamins (Hexavitamin) 1 tab PO DAILY [facility] Last Admin: 05/20/17 12:09 Dose: 1 tab Pantoprazole Sodium (Protonix Ec Tab) 40 mg PO Q12H [facility] Last Admin: 05/20/17 12:09 Dose: 40 mg Thiamine HCl (Vitamin B1 Tab) 100 mg PO DAILY [facility] Last Admin: 05/20/17 12:09 Dose: 100 mg - Labs Labs: 05/20/17 07:51 05/20/17 07:51 - Constitutional Appears: Well - Head Exam Head Exam: ATRAUMATIC, NORMAL INSPECTION, NORMOCEPHALIC - Eye Exam Eye Exam: EOMI, Normal appearance, PERRL Pupil Exam: NORMAL ACCOMODATION, PERRL - ENT Exam ENT Exam: Mucous Membranes Moist, Normal Exam - Neck Exam Neck Exam: Full ROM, Normal Inspection. absent: Lymphadenopathy - Respiratory Exam Respiratory Exam: Decreased Breath Sounds - Cardiovascular Exam Cardiovascular Exam: REGULAR RHYTHM, +S1, +S2 - GI/Abdominal Exam GI & Abdominal Exam: Soft, Diminished Bowel Sounds - Rectal Exam Rectal Exam: Deferred Assessment and Plan (1) Alcohol withdrawal seizure Status: Acute (2) Acute hyponatremia Status: Acute (3) Alcohol intoxication Status: Acute (4) Delirium tremens Status: Acute (5) Fever, low grade Status: Acute (6) Tonic-clonic seizure Status: Acute
[2017-05-20] MEDS: Piperacillin/Tazobact 3.375 GM in Sodium Chloride 100 ML IVPB SCH (22:41)
[2017-05-20 23:15] LABS: SQUAMOUS EPITHIAL < 1 /hpf (0-5); URINE BILIRUBIN NEGATIVE (NEGATIVE); URINE BLOOD NEGATIVE (NEGATIVE); URINE CLARITY Hazy (Clear); URINE COLOR Yellow (YELLOW); URINE GLUCOSE (UA) NORMAL (Normal); URINE LEUKOCYTE ESTERASE NEG Leu/uL (Negative); URINE NITRATE NEGATIVE (NEGATIVE); URINE PROTEIN NEGATIVE (NEGATIVE)
[2017-05-20] MEDS: Vancomycin 1 gm/NS 200 ml 1 GM/200 ML BAG IVPB SCH (23:38)
[2017-05-21] MEDS: Pantoprazole 40 mg EC Tab PO SCH ×2 (00:52→13:29)
[2017-05-21] MEDS: Piperacillin/Tazobact 3.375 GM in Sodium Chloride 100 ML IVPB SCH ×3 (04:14→20:05)
[2017-05-21] MEDS: Levothyroxine 25 MCG TAB PO SCH (07:30)
[2017-05-21 07:44] LABS: BASO % 0.6 % (0.0-2.0); EOS # 0.1 K/uL (0.0-0.7); HEMOGLOBIN 11.8 g/dL (12.0-18.0); LYMPH # 0.5 K/uL (1.0-4.3); LYMPH % 10.8 % (20.0-40.0); MEAN CORPUSCULAR HEMOGLOBIN 32.2 pg (27.0-31.0); MEAN CORPUSCULAR HGB CONC 35.7 g/dL (33.0-37.0); MEAN PLATELET VOLUME 7.6 fL (7.2-11.7); MONO # 0.9 K/uL (0.0-0.8); MONO % 17.4 % (0.0-10.0); NEUT # 3.5 K/uL (1.8-7.0); NEUT % 69.2 % (50.0-75.0); RBC 3.67 Mil/uL (4.40-5.90); RED CELL DISTRIBUTION WIDTH 13.1 % (11.5-14.5)
[2017-05-21 07:50] LABS: ALB/GLOB RATIO 1.1 (1.0-2.1); ALBUMIN 3.6 g/dL (3.5-5.0); ALT/SGPT 73 U/L (21-72); AST/SGOT 88 U/L (17-59); BLOOD UREA NITROGEN 13 mg/dL (9-20); GFR AFRICAN-AMERICAN > 60; GFR NON-AFRICAN AMERICAN > 60
[2017-05-21] MEDS: Multiple Vitamins Tab PO SCH (10:08)
--- NOTE | 2017-05-21 10:44 | CP.PCM.PN ---
Subjective - Date & Time of Evaluation Date of Evaluation: 05/21/17 Time of Evaluation: 10:41 - Subjective Subjective: CC: follow up GI bleed Seen with RN present No GI bleeding No complaints. Wants to go home Objective - Vital Signs/Intake and Output Vital Signs (last 24 hours): Temp Pulse Resp BP Pulse Ox 98.9 F 103 H 20 103/78 94 L 05/21/17 07:00 05/21/17 07:00 05/21/17 07:00 05/21/17 07:00 05/21/17 07:00 Intake and Output: 05/21/17 05/21/17 06:59 18:59 Intake Total 736 Balance 736 - Medications Medications: Current Medications Chlordiazepoxide (Librium) 25 mg PO Q4 PRN PRN Reason: Agitation Last Admin: 05/20/17 00:38 Dose: 25 mg Clonidine HCl (Catapres) 0.1 mg PO Q4H PRN PRN Reason: Symptoms of alcohol withdrawl Folic Acid (Folic Acid) 1 mg PO DAILY [facility] Last Admin: 05/21/17 10:12 Dose: 1 mg Gabapentin (Neurontin) 300 mg PO BID [facility] Last Admin: 05/21/17 10:08 Dose: 300 mg Vancomycin/Sodium Chloride (Vancomycin 1 Gm/Ns 200 Ml) 1 gm in 200 mls @ 133 mls/hr IVPB Q24H [facility] Stop: 05/24/17 23:01 Last Admin: 05/20/17 23:38 Dose: 133 mls/hr Piperacillin Sod/Tazobactam (Sod 3.375 gm/ Sodium Chloride) 100 mls @ 100 mls/ hr IVPB Q6H [facility] Last Admin: 05/21/17 10:19 Dose: 100 mls/hr Levothyroxine Sodium (Synthroid) 25 mcg PO ACB [facility] Last Admin: 05/21/17 07:30 Dose: 25 mcg Multivitamins (Hexavitamin) 1 tab PO DAILY [facility] Last Admin: 05/21/17 10:08 Dose: 1 tab Pantoprazole Sodium (Protonix Ec Tab) 40 mg PO Q12H [facility] Last Admin: 05/21/17 00:52 Dose: 40 mg Thiamine HCl (Vitamin B1 Tab) 100 mg PO DAILY [facility] Last Admin: 05/21/17 10:09 Dose: 100 mg - Labs Labs: 05/21/17 07:11 02/14/18 07:11 - Constitutional Appears: No Acute Distress - Head Exam Head Exam: NORMOCEPHALIC - Respiratory Exam Respiratory Exam: Clear to Ausculation Bilateral - Cardiovascular Exam Cardiovascular Exam: REGULAR RHYTHM - GI/Abdominal Exam GI & Abdominal Exam: Soft. absent: Tenderness Assessment and Plan (1) Alcohol dependence with uncomplicated withdrawal Assessment & Plan: On supportive care / meds Monitor clinically Status: Acute (2) Gastrointestinal hemorrhage Assessment & Plan: Melena on admission. Stable Hgb. EGD negative Plan for outpatient follow, Colonoscopy outpatient. Currently being worked up for sepsis so defer colonoscopy Status: Acute (3) Transaminasemia Assessment & Plan: Alcoholic liver disease Check sonogram Status: Acute (4) Fever, low grade Assessment & Plan: ID consulted for this Status: Acute
--- NOTE | 2017-05-21 10:52 | CP.PCM.PN ---
Subjective - Date & Time of Evaluation Date of Evaluation: 05/21/17 Time of Evaluation: 10:50 - Subjective Subjective: progress note- norm schultz pt seen and examined at bedside. no acute distress. no complaints. no fevers, chills, vomiting, diarrheaa, cp, sob. Objective - Vital Signs/Intake and Output Vital Signs (last 24 hours): Temp Pulse Resp BP Pulse Ox 98.9 F 103 H 20 103/78 94 L 05/21/17 07:00 05/21/17 07:00 05/21/17 07:00 05/21/17 07:00 05/21/17 07:00 Intake and Output: 05/21/17 05/21/17 06:59 18:59 Intake Total 736 Balance 736 - Medications Medications: Current Medications Chlordiazepoxide (Librium) 25 mg PO Q4 PRN PRN Reason: Agitation Last Admin: 05/20/17 00:38 Dose: 25 mg Clonidine HCl (Catapres) 0.1 mg PO Q4H PRN PRN Reason: Symptoms of alcohol withdrawl Folic Acid (Folic Acid) 1 mg PO DAILY [facility] Last Admin: 05/21/17 10:12 Dose: 1 mg Gabapentin (Neurontin) 300 mg PO BID [facility] Last Admin: 05/21/17 10:08 Dose: 300 mg Vancomycin/Sodium Chloride (Vancomycin 1 Gm/Ns 200 Ml) 1 gm in 200 mls @ 133 mls/hr IVPB Q24H [facility] Stop: 05/24/17 23:01 Last Admin: 05/20/17 23:38 Dose: 133 mls/hr Piperacillin Sod/Tazobactam (Sod 3.375 gm/ Sodium Chloride) 100 mls @ 100 mls/ hr IVPB Q6H [facility] Last Admin: 05/21/17 10:19 Dose: 100 mls/hr Levothyroxine Sodium (Synthroid) 25 mcg PO ACB [facility] Last Admin: 05/21/17 07:30 Dose: 25 mcg Multivitamins (Hexavitamin) 1 tab PO DAILY [facility] Last Admin: 05/21/17 10:08 Dose: 1 tab Pantoprazole Sodium (Protonix Ec Tab) 40 mg PO Q12H [facility] Last Admin: 05/21/17 00:52 Dose: 40 mg Thiamine HCl (Vitamin B1 Tab) 100 mg PO DAILY [facility] Last Admin: 05/21/17 10:09 Dose: 100 mg - Labs Labs: 05/21/17 07:11 05/21/17 07:11 - Constitutional Appears: Non-toxic, No Acute Distress - Head Exam Head Exam: ATRAUMATIC, NORMAL INSPECTION, NORMOCEPHALIC - Eye Exam Eye Exam: EOMI - ENT Exam ENT Exam: Mucous Membranes Moist - Respiratory Exam Respiratory Exam: NORMAL BREATHING PATTERN. absent: Respiratory Distress - Cardiovascular Exam Cardiovascular Exam: +S1, +S2 - GI/Abdominal Exam GI & Abdominal Exam: Soft, Normal Bowel Sounds. absent: Tenderness - Extremities Exam Extremities Exam: Full ROM, Normal Inspection - Back Exam Back Exam: NORMAL INSPECTION - Neurological Exam Neurological Exam: Alert, Awake, Oriented x3 - Psychiatric Exam Psychiatric exam: Normal Affect, Normal Mood - Skin Skin Exam: Dry, Intact, Normal Color, Warm Assessment and Plan - Assessment and Plan (Free Text) Assessment: this is a 66 yo male with past medical hx of alcoholism with 1. alcohol withdrawal -cont gabapentin bid -continue folic acid -continue clonidine prn -continue thiamine -continue protonix -gi consult. tepler/ martinez following -head ct negative -outpatient colonoscopy recommended 2. fever -cultures pending -vanco and zosyn started -id consulted. dr meek. recs appreciated 3. alcoholic liver disease -gi following -hep b surface antibody positive 4. hx of hypothyroidism -continue synthroid 5. hyponatremia -borderline -continue to monitor 6. gi/dvt -continue protonix -continue scds dw dr. schultz -
--- NOTE | 2017-05-21 17:12 | US ---
HISTORY: elevated liver enzymes, alcohol use COMPARISON: None available. TECHNIQUE: Sonographic evaluation of the abdomen. FINDINGS: Examination limited by bowel gas and habitus. LIVER: Measures 15.2 cm in sagittal dimension. Markedly limited evaluation with left lobe of the liver are not visualized. Echogenic liver may be seen in setting of hepatic parenchymal disease or fatty infiltration. No focal hepatic mass identified. The main portal vein appears patent with normal directional flow. No intrahepatic bile duct dilatation. GALLBLADDER: Under distended gallbladder limits evaluation. No gallstones. No gallbladder wall thickening. Negative sonographic Tomas's sign as assessed by the electrical timing device calibrator. COMMON BILE DUCT: Measures 3 mm. PANCREAS: Not well visualized. RIGHT KIDNEY: Measures approximately 9.9 x 4.3 x 5.4 cm. No obstructing calculus or hydronephrosis identified. LEFT KIDNEY: Measures approximately 10.8 x 5.5 x 5.2 cm. No obstructing calculus or hydronephrosis identified. SPLEEN: Measures approximately 11.4 cm. AORTA: Limited views appear unremarkable. IVC: Limited views appear unremarkable. OTHER FINDINGS: None. IMPRESSION: Markedly limited study as above. Echogenic liver may be seen in setting of hepatic parenchymal disease or fatty infiltration.
--- NOTE | 2017-05-21 18:13 | CP.PCM.PN ---
Subjective - Date & Time of Evaluation Date of Evaluation: 05/21/17 Time of Evaluation: 08:00 - Subjective Subjective: no fever await cultures Objective - Vital Signs/Intake and Output Vital Signs (last 24 hours): Temp Pulse Resp BP Pulse Ox 99.2 F 102 H 20 109/72 95 05/21/17 17:46 05/21/17 17:46 05/21/17 17:46 05/21/17 17:46 05/21/17 17:46 Intake and Output: 05/21/17 05/21/17 06:59 18:59 Intake Total 736 320 Balance 736 320 - Medications Medications: Current Medications Chlordiazepoxide (Librium) 25 mg PO Q4 PRN PRN Reason: Agitation Last Admin: 05/20/17 00:38 Dose: 25 mg Clonidine HCl (Catapres) 0.1 mg PO Q4H PRN PRN Reason: Symptoms of alcohol withdrawl Folic Acid (Folic Acid) 1 mg PO DAILY [facility] Last Admin: 05/21/17 10:12 Dose: 1 mg Gabapentin (Neurontin) 300 mg PO BID [facility] Last Admin: 05/21/17 17:29 Dose: 300 mg Vancomycin/Sodium Chloride (Vancomycin 1 Gm/Ns 200 Ml) 1 gm in 200 mls @ 133 mls/hr IVPB Q24H [facility] Stop: 05/24/17 23:01 Last Admin: 05/20/17 23:38 Dose: 133 mls/hr Piperacillin Sod/Tazobactam (Sod 3.375 gm/ Sodium Chloride) 100 mls @ 100 mls/ hr IVPB Q6H [facility] Last Admin: 05/21/17 10:19 Dose: 100 mls/hr Levothyroxine Sodium (Synthroid) 25 mcg PO ACB [facility] Last Admin: 05/21/17 07:30 Dose: 25 mcg Multivitamins (Hexavitamin) 1 tab PO DAILY [facility] Last Admin: 05/21/17 10:08 Dose: 1 tab Pantoprazole Sodium (Protonix Ec Tab) 40 mg PO Q12H [facility] Last Admin: 05/21/17 13:29 Dose: 40 mg Thiamine HCl (Vitamin B1 Tab) 100 mg PO DAILY [facility] Last Admin: 05/21/17 10:09 Dose: 100 mg - Labs Labs: 05/21/17 07:11 05/21/17 07:11 - Constitutional Appears: Non-toxic, Chronically Ill - Head Exam Head Exam: NORMOCEPHALIC - Eye Exam Eye Exam: PERRL - ENT Exam ENT Exam: Mucous Membranes Dry - Neck Exam Neck Exam: absent: Lymphadenopathy - Respiratory Exam Respiratory Exam: Decreased Breath Sounds - Cardiovascular Exam Cardiovascular Exam: REGULAR RHYTHM - GI/Abdominal Exam GI & Abdominal Exam: Distended, Soft - Rectal Exam Rectal Exam: Deferred - Exam Exam: NORMAL INSPECTION Assessment and Plan (1) Alcohol dependence with uncomplicated withdrawal Status: Acute (2) Alcohol withdrawal seizure Status: Acute (3) Fever, low grade Status: Acute - Assessment and Plan (Free Text) Assessment: await cultures
--- NOTE | 2017-05-21 18:25 | CP.PCM.PN ---
Subjective - Date & Time of Evaluation Date of Evaluation: 05/21/17 Time of Evaluation: 11:20 - Subjective Subjective: clinically same Objective - Vital Signs/Intake and Output Vital Signs (last 24 hours): Temp Pulse Resp BP Pulse Ox 99.2 F 102 H 20 109/72 95 05/21/17 17:46 05/21/17 17:46 05/21/17 17:46 05/21/17 17:46 05/21/17 17:46 Intake and Output: 05/21/17 05/21/17 06:59 18:59 Intake Total 736 320 Balance 736 320 - Medications Medications: Current Medications Chlordiazepoxide (Librium) 25 mg PO Q4 PRN PRN Reason: Agitation Last Admin: 05/20/17 00:38 Dose: 25 mg Clonidine HCl (Catapres) 0.1 mg PO Q4H PRN PRN Reason: Symptoms of alcohol withdrawl Folic Acid (Folic Acid) 1 mg PO DAILY [facility] Last Admin: 05/21/17 10:12 Dose: 1 mg Gabapentin (Neurontin) 300 mg PO BID [facility] Last Admin: 05/21/17 17:29 Dose: 300 mg Vancomycin/Sodium Chloride (Vancomycin 1 Gm/Ns 200 Ml) 1 gm in 200 mls @ 133 mls/hr IVPB Q24H [facility] Stop: 05/24/17 23:01 Last Admin: 05/20/17 23:38 Dose: 133 mls/hr Piperacillin Sod/Tazobactam (Sod 3.375 gm/ Sodium Chloride) 100 mls @ 100 mls/ hr IVPB Q6H [facility] Last Admin: 05/21/17 10:19 Dose: 100 mls/hr Levothyroxine Sodium (Synthroid) 25 mcg PO ACB [facility] Last Admin: 05/21/17 07:30 Dose: 25 mcg Multivitamins (Hexavitamin) 1 tab PO DAILY [facility] Last Admin: 05/21/17 10:08 Dose: 1 tab Pantoprazole Sodium (Protonix Ec Tab) 40 mg PO Q12H [facility] Last Admin: 05/21/17 13:29 Dose: 40 mg Thiamine HCl (Vitamin B1 Tab) 100 mg PO DAILY [facility] Last Admin: 05/21/17 10:09 Dose: 100 mg - Labs Labs: 05/21/17 07:11 05/21/17 07:11 - Constitutional Appears: Well - Head Exam Head Exam: ATRAUMATIC, NORMAL INSPECTION, NORMOCEPHALIC - Eye Exam Eye Exam: EOMI, Normal appearance, PERRL Pupil Exam: NORMAL ACCOMODATION, PERRL - ENT Exam ENT Exam: Mucous Membranes Moist, Normal Exam - Neck Exam Neck Exam: Full ROM, Normal Inspection. absent: Lymphadenopathy - Respiratory Exam Respiratory Exam: Decreased Breath Sounds - Cardiovascular Exam Cardiovascular Exam: REGULAR RHYTHM, +S1, +S2 - GI/Abdominal Exam GI & Abdominal Exam: Soft, Diminished Bowel Sounds - Rectal Exam Rectal Exam: Deferred Assessment and Plan (1) Alcohol withdrawal seizure Status: Acute (2) Acute hyponatremia Status: Acute (3) Alcohol intoxication Status: Acute (4) Delirium tremens Status: Acute (5) Fever, low grade Status: Acute (6) Tonic-clonic seizure Status: Acute
[2017-05-21] MEDS ORDERED: Piperacillin/Tazobact 3.375 GM in Sodium Chloride 100 ML IVPB SCH (19:53)
[2017-05-21] MEDS: Vancomycin 1 gm/NS 200 ml 1 GM/200 ML BAG IVPB SCH (22:44)
[2017-05-22] MEDS: Pantoprazole 40 mg EC Tab PO SCH ×2 (01:45→13:40)
[2017-05-22 02:17] VITALS: RESP 20
[2017-05-22] MEDS: Piperacill/Tazo 3.375gm in Dex 3.375 GM/50 ML BAG IVPB SCH ×3 (04:00→14:30)
[2017-05-22] MEDS: Levothyroxine 25 MCG TAB PO SCH (06:38)
[2017-05-22 08:00] LABS: BASO % 0.7 % (0.0-2.0); EOS # 0.1 K/uL (0.0-0.7); EOS % 2.9 % (0.0-4.0); LYMPH # 0.7 K/uL (1.0-4.3); LYMPH % 16.1 % (20.0-40.0); MEAN CELL VOLUME 89.8 fL (80.0-94.0); MEAN CORPUSCULAR HEMOGLOBIN 31.9 pg (27.0-31.0); MEAN CORPUSCULAR HGB CONC 35.4 g/dL (33.0-37.0); MEAN PLATELET VOLUME 7.4 fL (7.2-11.7); MONO % 21.5 % (0.0-10.0); NEUT # 2.6 K/uL (1.8-7.0); NEUT % 58.8 % (50.0-75.0); NRBC % 0.1 % (0.0-2.0); PLATELET COUNT 285 K/uL (130-400); RBC 3.78 Mil/uL (4.40-5.90); RED CELL DISTRIBUTION WIDTH 13.1 % (11.5-14.5); WHITE BLOOD COUNT 4.5 K/uL (4.8-10.8)
[2017-05-22 08:21] LABS: ALB/GLOB RATIO 1.1 (1.0-2.1); ALBUMIN 3.7 g/dL (3.5-5.0); ALT/SGPT 74 U/L (21-72); AST/SGOT 80 U/L (17-59); BLOOD UREA NITROGEN 15 mg/dL (9-20); CALCIUM 9.1 mg/dl (8.6-10.4); GFR AFRICAN-AMERICAN > 60; GFR NON-AFRICAN AMERICAN > 60
[2017-05-22 08:50] LABS: BANDS 1 % (0-2); EOSINOPHIL 4 % (0-4); LYMPHOCYTE 12 % (20-40); MONOCYTE 20 % (0-10); NEUTROPHIL 63 % (50-75); TOTAL CELLS COUNTED 100
[2017-05-22 08:51] LABS: PLATELET ESTIMATE NORMAL (NORMAL)
[2017-05-22 10:45] VITALS: O2SAT 95
[2017-05-22] MEDS: Multiple Vitamins Tab PO SCH (11:00)
--- NOTE | 2017-05-22 11:10 | CP.PCM.PN ---
Subjective - Date & Time of Evaluation Date of Evaluation: 05/22/17 Time of Evaluation: 10:55 - Subjective Subjective: F/U GI bleed. Pt seen with aid present. Feels well. Denies abdom pain, RB, melena, CP, SOB, fchills, SZ, cough Objective - Vital Signs/Intake and Output Vital Signs (last 24 hours): Temp Pulse Resp BP Pulse Ox 97.2 F L 92 H 20 111/68 95 05/22/17 07:00 05/22/17 07:00 05/22/17 07:00 05/22/17 07:00 05/22/17 07:00 Intake and Output: 05/22/17 05/22/17 06:59 18:59 Intake Total 200 Balance 200 - Medications Medications: Current Medications Clonidine HCl (Catapres) 0.1 mg PO Q4H PRN PRN Reason: Symptoms of alcohol withdrawl Docusate Sodium (Colace) 100 mg PO TID [facility] Last Admin: 05/22/17 11:07 Dose: 100 mg Folic Acid (Folic Acid) 1 mg PO DAILY [facility] Last Admin: 05/21/17 10:12 Dose: 1 mg Gabapentin (Neurontin) 300 mg PO BID [facility] Last Admin: 05/22/17 11:00 Dose: 300 mg Vancomycin/Sodium Chloride (Vancomycin 1 Gm/Ns 200 Ml) 1 gm in 200 mls @ 133 mls/hr IVPB Q24H [facility] Stop: 05/24/17 23:01 Last Admin: 05/21/17 22:44 Dose: 133 mls/hr Piperacillin Sod/Tazobactam Sod (Zosyn 3.375 Gm Iv Premix) 3.375 gm in 50 mls @ 100 mls/hr IVPB Q6H [facility] Last Admin: 05/22/17 04:00 Dose: 100 mls/hr Levothyroxine Sodium (Synthroid) 25 mcg PO ACB [facility] Last Admin: 05/22/17 06:38 Dose: 25 mcg Multivitamins (Hexavitamin) 1 tab PO DAILY [facility] Last Admin: 05/21/17 10:08 Dose: 1 tab Pantoprazole Sodium (Protonix Ec Tab) 40 mg PO Q12H [facility] Last Admin: 05/22/17 01:45 Dose: Not Given Thiamine HCl (Vitamin B1 Tab) 100 mg PO DAILY [facility] Last Admin: 05/21/17 10:09 Dose: 100 mg - Labs Labs: 05/22/17 07:38 05/22/17 07:38 - Constitutional Appears: Well - Respiratory Exam Respiratory Exam: Clear to Ausculation Bilateral - Cardiovascular Exam Cardiovascular Exam: RRR - GI/Abdominal Exam GI & Abdominal Exam: Soft, Normal Bowel Sounds. absent: Tenderness - Neurological Exam Neurological Exam: Alert, Awake Assessment and Plan (1) Alcohol dependence with uncomplicated withdrawal Status: Acute (2) Gastrointestinal hemorrhage Assessment & Plan: stable. Consider outpatient colonsocopy- discussed with patient Status: Acute (3) Alcohol intoxication Status: Acute (4) Transaminasemia Status: Acute
--- NOTE | 2017-05-22 13:47 | CP.PCM.PN ---
Subjective - Date & Time of Evaluation Date of Evaluation: 05/22/17 Time of Evaluation: 13:51 - Subjective Subjective: PGY2 Note for Dr. Emelyn Schultz; all management as per Dr. Emelyn schultz patient seen and examined at bedside this AM; denies any complaints and really desires to go home; patient has promised to stop drinking; denies all symptoms today fevers/chills, [place], CP, Sob, abdominal pain, N/V/D, dysuria/freq/urg or lower extremity pain/swelling. Objective - Vital Signs/Intake and Output Vital Signs (last 24 hours): Temp Pulse Resp BP Pulse Ox 97.2 F L 92 H 20 111/68 95 05/22/17 07:00 05/22/17 07:00 05/22/17 07:00 05/22/17 07:00 05/22/17 07:00 Intake and Output: 05/22/17 05/22/17 06:59 18:59 Intake Total 200 Balance 200 - Medications Medications: Current Medications Clonidine HCl (Catapres) 0.1 mg PO Q4H PRN PRN Reason: Symptoms of alcohol withdrawl Docusate Sodium (Colace) 100 mg PO TID [facility] Last Admin: 05/22/17 11:07 Dose: 100 mg Folic Acid (Folic Acid) 1 mg PO DAILY [facility] Last Admin: 05/22/17 11:00 Dose: 1 mg Gabapentin (Neurontin) 300 mg PO BID [facility] Last Admin: 05/22/17 11:00 Dose: 300 mg Vancomycin/Sodium Chloride (Vancomycin 1 Gm/Ns 200 Ml) 1 gm in 200 mls @ 133 mls/hr IVPB Q24H [facility] Stop: 05/24/17 23:01 Last Admin: 05/21/17 22:44 Dose: 133 mls/hr Piperacillin Sod/Tazobactam Sod (Zosyn 3.375 Gm Iv Premix) 3.375 gm in 50 mls @ 100 mls/hr IVPB Q6H [facility] Last Admin: 05/22/17 09:00 Dose: 100 mls/hr Levothyroxine Sodium (Synthroid) 25 mcg PO ACB [facility] Last Admin: 05/22/17 06:38 Dose: 25 mcg Multivitamins (Hexavitamin) 1 tab PO DAILY [facility] Last Admin: 05/22/17 11:00 Dose: 1 tab Pantoprazole Sodium (Protonix Ec Tab) 40 mg PO Q12H [facility] Last Admin: 05/22/17 13:40 Dose: 40 mg Thiamine HCl (Vitamin B1 Tab) 100 mg PO DAILY [facility] Last Admin: 05/22/17 11:00 Dose: 100 mg - Labs Labs: 05/22/17 07:38 05/22/17 07:38 - Constitutional Appears: Non-toxic - Head Exam Head Exam: ATRAUMATIC - Eye Exam Eye Exam: EOMI, Normal appearance - ENT Exam ENT Exam: Mucous Membranes Moist - Neck Exam Neck Exam: Full ROM. absent: Lymphadenopathy - Respiratory Exam Respiratory Exam: Clear to Ausculation Bilateral, NORMAL BREATHING PATTERN. absent: Rales, Rhonchi, Wheezes - Cardiovascular Exam Cardiovascular Exam: REGULAR RHYTHM, +S1, +S2 - GI/Abdominal Exam GI & Abdominal Exam: Soft - Extremities Exam Extremities Exam: Full ROM. absent: Calf Tenderness - Back Exam Back Exam: absent: CVA tenderness (L), CVA tenderness (R) - Neurological Exam Neurological Exam: Alert, Awake, Oriented x3 - Psychiatric Exam Psychiatric exam: Depressed - Skin Skin Exam: Warm Assessment and Plan - Assessment and Plan (Free Text) Assessment: This is a 66 yo m admitted for EtOH withdrawal and EtOH dependence alcohol withdrawal; resolved -cont gabapentin bid -continue folic acid -continue clonidine prn; does not need as outpatient -continue thiamine -continue protonix -gi consult. ángel/ juan following; outpatient colonoscopy recommended -head ct negative -outpatient colonoscopy recommended fever; resolved -cultures all negative to date -vanco and zosyn started; ID recommending augmentin BID for 7 more days -id consulted. dr meek. recs appreciated alcoholic liver disease -gi following -hep b surface antibody positive -recommend outpatient f/u for EtOH liver disease hx of hypothyroidism -continue synthroid hyponatremia; resolved; most likely 2/2 to EtOH gi/dvt -continue protonix -continue scds -the patient is stable for d/c pending Dr. Emelyn Schultz on d/c the patient will need the following prescriptions Augmentin 875mg BID for 7 more days Folic Acid 1mg daily Thiamine 100mg daily Multivitamin daily Synthroid 25mcg daily f/u with PMD in one week s/p discharge -stressed importance of quitting EtOH; patient verbalizes understanding and promisees to quit All management as per Dr. Emelyn schultz
[2017-05-22 17:50] VITALS: BP 107/73; PULSE 83; TEMP 97.6
[2017-05-22] MEDS ORDERED: Piperacillin/Tazobact 3.375 GM in Sodium Chloride 100 ML IVPB SCH (21:00)
== END 2017-05-22 20:01 | disposition home or self-care (01) | DRG 895 ==
LOC: C.ER 17:09 → C.9E 20:00 → C.5S 05-15 21:09 → OBSVTOIN 05-16 13:06
PROVIDERS: ADMIT Internal Medicine Nephrology; ATTEND Internal Medicine Nephrology
PROC: HZ52ZZZ Individual Psychotherapy for Substance Abuse Treatment, Cognitive-Behavioral (ICD-10-PCS; principal; 2017-05-16)
PROC: HZ2ZZZZ Detoxification Services for Substance Abuse Treatment (ICD-10-PCS; 2017-05-16)
PROC: HZ59ZZZ Individual Psychotherapy for Substance Abuse Treatment, Supportive (ICD-10-PCS; 2017-05-16)
PROC: HZ56ZZZ Individual Psychotherapy for Substance Abuse Treatment, Psychoeducation (ICD-10-PCS; 2017-05-16)
PROC: 0DB68ZX Excision of Stomach, Via Natural or Artificial Opening Endoscopic, Diagnostic (ICD-10-PCS; 2017-05-19)
DX: F10.221 Alcohol dependence with intoxication delirium (principal); G40.409 Other generalized epilepsy and epileptic syndromes, not intractable, without status epilepticus; K70.9 Alcoholic liver disease, unspecified; E87.1 Hypo-osmolality and hyponatremia; K92.1 Melena; F10.231 Alcohol dependence with withdrawal delirium; E05.90 Thyrotoxicosis, unspecified without thyrotoxic crisis or storm; Y90.0 Blood alcohol level of less than 20 mg/100 ml; E78.5 Hyperlipidemia, unspecified; E86.0 Dehydration; F17.210 Nicotine dependence, cigarettes, uncomplicated; E03.9 Hypothyroidism, unspecified; F41.9 Anxiety disorder, unspecified; R00.0 Tachycardia, unspecified; R58 Hemorrhage, not elsewhere classified; R50.9 Fever, unspecified; K29.50 Unspecified chronic gastritis without bleeding; B96.81 Helicobacter pylori [H. pylori] as the cause of diseases classified elsewhere

== ENCOUNTER 2017-07-10 04:18 | Inpatient (IN) | payer MEDICARE, MEDICAID ==
[2017-07-10 04:18] VITALS: BMI 26.6
[2017-07-10] MEDS ORDERED: Sodium Chloride 0.9% 1,000 ML IV ONE (04:38)
--- NOTE | 2017-07-10 04:40 | C.PDOC ---
History Of Present Illness 66 year old male brought in by ambulance for evaluation after a witnessed seizure. On arrival, patient appears awake and alert, but confused. Patient is a poor historian and cannot recall how he got here or why he is here. Patient denies any pain, headache, bit tongue, or incontinence. He states he last drank alcohol 2 days ago. Time Seen by Provider: 07/10/17 04:31 Chief Complaint (Nursing): Medical Clearance History Per: Patient History/Exam Limitations: clinical condition Onset/Duration Of Symptoms: Mins Current Symptoms Are (Timing): Better Past Medical History Reviewed: Historical Data, Nursing Documentation, Vital Signs Vital Signs: Last Vital Signs Temp 98.1 F 07/10/17 05:29 Pulse 66 07/10/17 05:29 Resp 15 07/10/17 05:29 BP 151/97 H 07/10/17 05:29 Pulse Ox 100 07/10/17 05:29 - Medical History PMH: Hyperthyroidism, Seizures (ETOH Related.) Denies: Colonic Polyps, Fractures, HIV, Chronic Kidney Disease, Sleep Apnea, TIA Other PMH: Alcohol abuse Other Surgeries: Wrist surgery - [facility] Procedures DETOXIFICATION SERVICES FOR SUBSTANCE ABUSE TREATMENT (05/16/17) EXCISION OF STOMACH, ENDO, DIAGN (05/16/17) INDIV PSYCHOTHERAPY FOR SUBSTANCE ABUSE TREATMENT, SUPPORT (05/16/17) INDIV PSYCHOTHERAPY FOR SUBSTANCE ABUSE, COGNITIV BEHAVIORAL (05/16/17) INDIV PSYCHOTHERAPY FOR SUBSTANCE ABUSE, PSYCHOEDUCATION (05/16/17) Family History: States: Unknown Family Hx - Social History Hx Alcohol Use: Yes (last drank 2 days ago) Hx Substance Use: No - Immunization History Hx Tetanus Toxoid Vaccination: No Hx Influenza Vaccination: No Hx Pneumococcal Vaccination: No Review Of Systems Genitourinary: Negative for: Incontinence Musculoskeletal: Negative for: Neck Pain, Back Pain Neurological: Positive for: Confusion, Seizures. Negative for: Headache, Dizziness Physical Exam - Physical Exam Appears: Non-toxic, No Acute Distress Skin: Warm, Dry, No Rash Head: Atraumatic, Normacephalic, No Abrasion, No Laceration Eye(s): bilateral: Normal Inspection, PERRL, EOMI Oral Mucosa: Moist Neck: Normal ROM, Supple Chest: Symmetrical Cardiovascular: Rhythm Regular, No Murmur Respiratory: Normal Breath Sounds, No Rales, No Rhonchi, No Wheezing Gastrointestinal/Abdominal: Bowel Sounds (active), Soft, No Tenderness, No Guarding Extremity: Bilateral: Atraumatic, Normal Color And Temperature, Normal ROM Pulses: Left Dorsalis Pedis: Normal, Right Dorsalis Pedis: Normal Neurological/Psych: Normal Speech, Other (Orientedx2, responsive to verbal stimuli) Disoriented To: Situation ED Course And Treatment - Laboratory Results Result Diagrams: 07/10/17 04:54 07/10/17 04:54 Lab Interpretation: No Acute Changes ECG: Interpreted By Me, Viewed By Me ([place]) ECG Rhythm: Sinus Rhythm, 1st Degree HB ECG Interpretation: No Acute Changes Rate From EC O2 Sat by Pulse Oximetry: 95 (NC) Pulse Ox Interpretation: Normal Medical Decision Making Medical Decision Making: Impression: 66 year old brought in for seizure; alcohol withdrawal stopped 2 days ago Initial Plan: * EKG * Alcohol serum * Urine drug screen * CMP * CBC * Urinalysis * NS IVF Case discussed with Dr Grey who recommends admission Labs reviewed Contact Dr Emelyn Whitney for admission Disposition - Disposition Disposition: HOSPITALIZED Disposition Time: 05:20 Condition: STABLE - POA Present On Arrival: None - Clinical Impression Clinical Impression: Alcohol withdrawal seizure - PA / SAUSAGE SMOKER / Resident Statement MD/DO has reviewed & agrees with the documentation as recorded. - Scribe Statement The provider has reviewed the documentation as recorded by the Scribe (Janessa Burt) All medical record entries made by the Scribe were at my direction and personally dictated by me. I have reviewed the chart and agree that the record accurately reflects my personal performance of the history, physical exam, medical decision making, and the department course for this patient. I have also personally directed, reviewed, and agree with the discharge instructions and disposition. Decision To Admit - Pt Status Changed To: Hospital Disposition Of: Inpatient - Admit Certification Admit to Inpatient:: After my assessment, the patient will require hospitalization for at least two midnights. This is because of the severity of symptoms shown, intensity of services needed, and/or the medical risk in this patient being treated as an outpatient. - InPatient: Physician Admission Certification: I certify that this patient requires 2 or more midnights of care for the following reason:: patient with history of alcohol abuse and stopped 2 days ago now in withdrawal and had seizure. After my assessment, the patient will require hospitalization for at least two midnights. This is because of the severity of symptoms shown, intensity of services needed, and/or the medical risk in this patient being treated as an outpatient. - . Bed Request Type: Telemetry Admitting Physician: Giana Whitney Patient Diagnosis: Alcohol withdrawal seizure
[2017-07-10 04:58] LABS: BASO % 0.6 % (0.0-2.0); EOS # 0.1 K/uL (0.0-0.7); HEMOGLOBIN 13.3 g/dL (12.0-18.0); LYMPH # 0.9 K/uL (1.0-4.3); LYMPH % 23.9 % (20.0-40.0); MEAN CELL VOLUME 90.7 fL (80.0-94.0); MEAN CORPUSCULAR HEMOGLOBIN 31.7 pg (27.0-31.0); MEAN CORPUSCULAR HGB CONC 34.9 g/dL (33.0-37.0); MEAN PLATELET VOLUME 8.2 fL (7.2-11.7); MONO # 0.3 K/uL (0.0-0.8); MONO % 7.2 % (0.0-10.0); NEUT # 2.5 K/uL (1.8-7.0); NEUT % 66.3 % (50.0-75.0); RBC 4.2 Mil/uL (4.40-5.90); RED CELL DISTRIBUTION WIDTH 13.5 % (11.5-14.5); WHITE BLOOD COUNT 3.8 K/uL (4.8-10.8)
[2017-07-10 05:09] LABS: ALB/GLOB RATIO 1.4 (1.0-2.1); ALBUMIN 4.3 g/dL (3.5-5.0); ALT/SGPT 15 U/L (21-72); AST/SGOT 20 U/L (17-59); BLOOD UREA NITROGEN 10 mg/dL (9-20); CALCIUM 8.5 mg/dl (8.6-10.4); GFR AFRICAN-AMERICAN > 60; GFR NON-AFRICAN AMERICAN > 60
[2017-07-10] MEDS ORDERED: Multivitamin (MVI) 10 ML, Thiamine 100 MG, Folic Acid 1 MG in Sodium Chloride 0.9% 1,00... IV ONE (05:16)
[2017-07-10] MEDS ORDERED: Multivitamin (MVI) 10 ML, Folic Acid 1 MG in Sodium Chloride 0.9% 1,000 ML IV ONE (05:25)
[2017-07-10 06:08] LABS: SPERM URINE RARE /hpf; SQUAMOUS EPITHIAL < 1 /hpf (0-5); URINE BILIRUBIN NEGATIVE (NEGATIVE); URINE BLOOD NEGATIVE (NEGATIVE); URINE CLARITY Clear (Clear); URINE COLOR Straw (YELLOW); URINE GLUCOSE (UA) NORMAL (Normal); URINE HYALINE CAST 0-2 /lpf (0-2); URINE LEUKOCYTE ESTERASE NEG Leu/uL (Negative); URINE PROTEIN 1+ mg/dL (NEGATIVE); URINE UROBILINOGEN NORMAL mg/dL (0.2-1.0)
[2017-07-10 06:19] LABS: BARBITURATES, UR NEGATIVE (NEGATIVE); BENZODIAZEPINES, UR NEGATIVE (NEGATIVE); OPIATES, UR NEGATIVE (NEGATIVE); PHENCYCLIDINE, UR NEGATIVE (NEGATIVE)
[2017-07-10] MEDS ORDERED: Potassium Chloride 20 mEq ER Tab PO ONE (06:29)
[2017-07-10] MEDS: Enoxaparin 40 mg Syringe SC SCH (10:17)
--- NOTE | 2017-07-10 11:34 | CP.PCM.HP ---
Past Patient History - Infectious Disease Hx of Infectious Diseases: None - Past Medical History & Family History Past Medical History?: No - Past Social History Smoking Status: Never Smoked - CARDIAC Hx Cardiac Disorders: No Hx Heart Attack: No - PULMONARY Hx Sleep Apnea: No - NEUROLOGICAL Hx Seizures: Yes (ETOH Related.) Hx Transient Ischemic Attacks (TIA): No - HEENT Hx HEENT Problems: No - RENAL Hx Chronic Kidney Disease: No - ENDOCRINE/METABOLIC Hx Hyperthyroidism: Yes - HEMATOLOGICAL/ONCOLOGICAL Hx Human Immunodeficiency Virus (HIV): No - INTEGUMENTARY Hx Dermatological Problems: No - MUSCULOSKELETAL/RHEUMATOLOGICAL Hx Fractures: No - GASTROINTESTINAL Hx Gastrointestinal Disorders: No - GENITOURINARY/GYNECOLOGICAL Hx Genitourinary Disorders: No - PSYCHIATRIC Hx Substance Use: No - SURGICAL HISTORY Hx Surgeries: Yes Hx Orthopedic Surgery: Yes (Wrist Surgery.) - ANESTHESIA Hx Anesthesia: Yes Hx Anesthesia Reactions: No Hx Malignant Hyperthermia: No Meds Allergies/Adverse Reactions: Allergies Allergy/AdvReac Type Severity Reaction Status Date / Time No Known Allergies Allergy Verified 07/10/17 04:28 Physical Exam - Constitutional Appears: Well - Head Exam Head Exam: ATRAUMATIC, NORMAL INSPECTION, NORMOCEPHALIC - Eye Exam Eye Exam: EOMI, Normal appearance, PERRL Pupil Exam: NORMAL ACCOMODATION, PERRL - ENT Exam ENT Exam: Mucous Membranes Moist, Normal Exam - Neck Exam Neck exam: Positive for: Normal Inspection - Respiratory Exam Respiratory Exam: Decreased Breath Sounds - Cardiovascular Exam Cardiovascular Exam: REGULAR RHYTHM, +S1, +S2 - GI/Abdominal Exam GI & Abdominal Exam: Diminished Bowel Sounds, Soft - Rectal Exam Rectal Exam: Deferred Results - Vital Signs Recent Vital Signs: Last Vital Signs Temp 98.1 F 07/10/17 07:38 Pulse 67 07/10/17 08:12 Resp 20 07/10/17 07:38 BP 151/94 H 07/10/17 07:38 Pulse Ox 100 07/10/17 07:38 - Labs Result Diagrams: 07/10/17 04:54 07/10/17 04:54 Labs: Laboratory Results - last 24 hr 07/10/17 07/10/17 07/10/17 04:54 04:54 05:50 WBC 3.8 L RBC 4.20 L Hgb 13.3 Hct 38.1 MCV 90.7 MCH 31.7 H MCHC 34.9 RDW 13.5 Plt Count 178 D MPV 8.2 Neut % (Auto) 66.3 Lymph % (Auto) 23.9 Spalding % (Auto) 7.2 Eos % (Auto) 2.0 Baso % (Auto) 0.6 Neut # (Auto) 2.5 Lymph # (Auto) 0.9 L [place] # (Auto) 0.3 Eos # (Auto) 0.1 Baso # (Auto) 0.0 Sodium 139 Potassium 3.2 L Chloride 102 Carbon Dioxide 22 Anion Gap 19 BUN 10 Creatinine 0.6 L Est GFR ( Amer) > 60 Est GFR (Non-Af Amer) > 60 Random Glucose 137 H Calcium 8.5 L Phosphorus 2.6 Magnesium 2.0 Total Bilirubin 1.0 AST 20 ALT 15 L D Alkaline Phosphatase 69 Total Protein 7.3 Albumin 4.3 Globulin 3.1 Albumin/Globulin Ratio 1.4 Urine Color Straw Urine Clarity Clear Urine pH 7.0 Ur Specific Coffey 1.011 Urine Protein 1+ H Urine Glucose (UA) Normal Urine Ketones Negative Urine Blood Negative Urine Nitrate Negative Urine Bilirubin Negative Urine Urobilinogen Normal Ur Leukocyte Esterase Neg Urine WBC (Auto) < 1 Urine RBC (Auto) < 1 Ur Squamous Epith Cells < 1 Hyaline Casts 0-2 Urine Sperm (Auto) Rare H Urine Opiates Screen Urine Methadone Screen Ur Barbiturates Screen Ur Phencyclidine Scrn Ur Amphetamines Screen U Benzodiazepines Scrn U Oth Cocaine Metabols U Cannabinoids Screen Alcohol, Quantitative < 10 07/10/17 05:50 WBC RBC Hgb Hct MCV MCH MCHC RDW Plt Count MPV Neut % (Auto) Lymph % (Auto) Spalding % (Auto) Eos % (Auto) Baso % (Auto) Neut # (Auto) Lymph # (Auto) Spalding # (Auto) Eos # (Auto) Baso # (Auto) Sodium Potassium Chloride Carbon Dioxide Anion Gap BUN Creatinine Est GFR ( Amer) Est GFR (Non-Af Amer) Random Glucose Calcium Phosphorus Magnesium Total Bilirubin AST ALT Alkaline Phosphatase Total Protein Albumin Globulin Albumin/Globulin Ratio Urine Color Urine Clarity Urine pH Ur Specific Coffey Urine Protein Urine Glucose (UA) Urine Ketones Urine Blood Urine Nitrate Urine Bilirubin Urine Urobilinogen Ur Leukocyte Esterase Urine WBC (Auto) Urine RBC (Auto) Ur Squamous Epith Cells Hyaline Casts Urine Sperm (Auto) Urine Opiates Screen Negative Urine Methadone Screen Negative Ur Barbiturates Screen Negative Ur Phencyclidine Scrn Negative Ur Amphetamines Screen Negative U Benzodiazepines Scrn Negative U Oth Cocaine Metabols Negative U Cannabinoids Screen Negative Alcohol, Quantitative
--- NOTE | 2017-07-10 14:35 | CT ---
PROCEDURE: CT HEAD WITHOUT CONTRAST. HISTORY: New onset of seizure COMPARISON: 05/15/2017. TECHNIQUE: Axial computed tomography images were obtained through the head/brain without intravenous contrast. Radiation dose: Total exam DLP = 891.76 mGy-cm. This CT exam was performed using one or more of the following dose reduction techniques: Automated exposure control, adjustment of the mA and/or kV according to patient size, and/or use of iterative reconstruction technique. FINDINGS: HEMORRHAGE: No intracranial hemorrhage. BRAIN: There is no mass, mass effect or abnormal extra-axial fluid collection. There is no territorial infarction. VENTRICLES: There is mild age-related global parenchymal volume loss and proportionate enlargement of the ventricles and cortical sulci. 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 CALVARIUM: The skull base and calvarium are normal. PARANASAL SINUSES: Predominantly clear. MASTOID AIR CELLS: Predominantly clear. OTHER FINDINGS: None. IMPRESSION: No acute intracranial abnormality.
[2017-07-11 07:35] LABS: BASO % 0.8 % (0.0-2.0); EOS # 0.1 K/uL (0.0-0.7); EOS % 2.3 % (0.0-4.0); HEMOGLOBIN 12.9 g/dL (12.0-18.0); LYMPH # 1.6 K/uL (1.0-4.3); LYMPH % 37.9 % (20.0-40.0); MEAN CELL VOLUME 90.6 fL (80.0-94.0); MEAN CORPUSCULAR HEMOGLOBIN 32.2 pg (27.0-31.0); MEAN CORPUSCULAR HGB CONC 35.5 g/dL (33.0-37.0); MEAN PLATELET VOLUME 8.5 fL (7.2-11.7); MONO # 0.5 K/uL (0.0-0.8); MONO % 11.6 % (0.0-10.0); NEUT % 47.4 % (50.0-75.0); NRBC % 0.1 % (0.0-2.0); RBC 4.01 Mil/uL (4.40-5.90); RED CELL DISTRIBUTION WIDTH 13.6 % (11.5-14.5); WHITE BLOOD COUNT 4.3 K/uL (4.8-10.8)
[2017-07-11 07:49] VITALS: RESP 20
[2017-07-11 07:50] LABS: ALB/GLOB RATIO 1.3 (1.0-2.1); ALBUMIN 3.9 g/dL (3.5-5.0); ALT/SGPT 18 U/L (21-72); AST/SGOT 23 U/L (17-59); BLOOD UREA NITROGEN 16 mg/dL (9-20); CALCIUM 8.9 mg/dl (8.6-10.4); GFR AFRICAN-AMERICAN > 60; GFR NON-AFRICAN AMERICAN > 60
[2017-07-11] MEDS: Enoxaparin 40 mg Syringe SC SCH (10:54)
--- NOTE | 2017-07-11 13:53 | CP.PCM.PN ---
Subjective - Date & Time of Evaluation Date of Evaluation: 07/11/17 Time of Evaluation: 13:47 - Subjective Subjective: PATIENT WAS ADMITTED FOR SEIZURE AND ALCOHOL WITHDRAW AAOX3; DENIES CHEST PAIN/ SOB / NAUSEA OR VOMITING NO SIGN OF DISTRESS NOTED Objective - Vital Signs/Intake and Output Vital Signs (last 24 hours): Temp Pulse Resp BP Pulse Ox 98.1 F 70 20 131/88 98 07/11/17 07:48 07/11/17 07:48 07/11/17 07:48 07/11/17 07:48 07/11/17 07:48 - Medications Medications: Current Medications Enoxaparin Sodium (Lovenox) 40 mg SC DAILY [facility] Last Admin: 07/11/17 10:54 Dose: 40 mg Levetiracetam (Keppra) 500 mg PO BID [facility] Last Admin: 07/11/17 10:54 Dose: 500 mg Lorazepam (Ativan) 2 mg IVP Q6H PRN PRN Reason: Anxiety - Labs Labs: 07/11/17 07:23 07/11/17 07:23 Assessment and Plan - Assessment and Plan (Free Text) Assessment: PATIENT SEEN AND EXAMINED ALCOHOL LEVEL IS LESS THAN 10 NO TREMOR NOTED HEAD CT DONE SHOW NO ACUTE INTRACRANIAL ABNORMALITY LUNG SOUND CLEAR MARLON ABDOMINAL SOFT NON DISTENDED/ POSITIVE BOWEL SOUND ALL QUADRANT DISCUSS WITH DR CHIRINOS WHO CLEAR PATIENT FOR DC FOLLOW UP WITH DR Emelyn CHIRINOS IN 1-2 WEEKS AT HIS OFFICE ---CALL FOR APPONTMENT CONTINUE ALL YOUR HOME MEDICATION NEW PRESCRIPTION GIVEN KEPPRA 500 MG BY MOUTH TWICE A DAY ACTIVITY TOLERATED CALL DR Emelyn CHIRINOS OR GO TO THE EMERGENCY ROOM IF SYMPTOMS RETURN OR WORSENING DISCUSS WITH PATIENT WHO AGREE AND VERBALIZED UNDERSTANDING
[2017-07-11 16:40] VITALS: BP 136/86; PULSE 76; TEMP 97.5; O2SAT 97
--- NOTE | 2017-07-11 17:36 | CP.PCM.PN ---
Subjective - Date & Time of Evaluation Date of Evaluation: 07/11/17 Time of Evaluation: 10:00 - Subjective Subjective: clinically same Objective - Vital Signs/Intake and Output Vital Signs (last 24 hours): Temp Pulse Resp BP Pulse Ox 97.5 F L 76 20 136/86 97 07/11/17 15:10 07/11/17 15:10 07/11/17 15:10 07/11/17 15:10 07/11/17 15:10 - Labs Labs: 07/11/17 07:23 07/11/17 07:23 - Constitutional Appears: Well - Head Exam Head Exam: ATRAUMATIC, NORMAL INSPECTION, NORMOCEPHALIC - Eye Exam Eye Exam: EOMI, Normal appearance, PERRL Pupil Exam: NORMAL ACCOMODATION, PERRL - ENT Exam ENT Exam: Mucous Membranes Moist, Normal Exam - Neck Exam Neck Exam: Full ROM, Normal Inspection. absent: Lymphadenopathy - Respiratory Exam Respiratory Exam: Decreased Breath Sounds - Cardiovascular Exam Cardiovascular Exam: REGULAR RHYTHM, +S1, +S2 - GI/Abdominal Exam GI & Abdominal Exam: Soft, Diminished Bowel Sounds - Rectal Exam Rectal Exam: Deferred
== END 2017-07-11 17:09 | disposition home or self-care (01) | DRG 897 ==
LOC: C.ER 04:18 → C.9E 05:15 → C.5S 06:21
PROVIDERS: ADMIT Internal Medicine Nephrology; ATTEND Internal Medicine Nephrology
DX: F10.239 Alcohol dependence with withdrawal, unspecified (principal); R56.9 Unspecified convulsions; Y90.0 Blood alcohol level of less than 20 mg/100 ml; E21.3 Hyperparathyroidism, unspecified

== ENCOUNTER 2018-04-07 06:36 | Emergency (ER) | payer MEDICARE, MEDICAID ==
[2018-04-07 06:36] VITALS: BMI 26.6
[2018-04-07 06:56] VITALS: TEMP 98.7
[2018-04-07 07:40] LABS: BASO % 0.3 % (0.0-2.0); EOS % 0.4 % (0.0-4.0); HEMOGLOBIN 13.1 g/dL (12.0-18.0); LYMPH # 0.7 K/uL (1.0-4.3); LYMPH % 11.2 % (20.0-40.0); MEAN CELL VOLUME 90.4 fL (80.0-94.0); MEAN CORPUSCULAR HEMOGLOBIN 31.6 pg (27.0-31.0); MEAN CORPUSCULAR HGB CONC 34.9 g/dL (33.0-37.0); MEAN PLATELET VOLUME 7.7 fL (7.2-11.7); MONO # 0.4 K/uL (0.0-0.8); MONO % 5.5 % (0.0-10.0); NEUT # 5.5 K/uL (1.8-7.0); NEUT % 82.6 % (50.0-75.0); RBC 4.15 Mil/uL (4.40-5.90); RED CELL DISTRIBUTION WIDTH 12.8 % (11.5-14.5)
[2018-04-07 07:43] LABS: WHITE BLOOD COUNT 6.7 K/uL (4.8-10.8)
[2018-04-07 07:58] LABS: ALB/GLOB RATIO 1.6 (1.0-2.1); ALBUMIN 4.8 g/dL (3.5-5.0); ALT/SGPT 19 U/L (21-72); AST/SGOT 23 U/L (17-59); BLOOD UREA NITROGEN 11 mg/dL (9-20); CALCIUM 9.2 mg/dl (8.6-10.4); GFR NON-AFRICAN AMERICAN > 60
[2018-04-07 08:14] VITALS: BP 148/91; PULSE 89; RESP 18; O2SAT 97
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
== END 2018-04-07 08:18 | disposition home or self-care (01) ==
LOC: C.ER 06:36
DX: R56.9 Unspecified convulsions (principal)
CPT/HCPCS: 80053; 85025; 96374; 99285; J1953

== ENCOUNTER 2018-05-29 04:34 | Emergency (ER) | payer MEDICARE, MEDICAID ==
[2018-05-29 04:34] VITALS: BMI 26.6
--- NOTE | 2018-05-29 04:43 | C.PDOC ---
History Of Present Illness 67 y/o male presents to the ED via ambulance for evaluation s/p seizure. called and stated patient had witnessed seizure. Patient has a history of seizures with a questionable change in medication. On arrival patient seems slightly post-ictal. He does not recall having a seizure or what his usual medications are. No signs of trauma to the head or extremities. Patient denies any tongue bite or bowel/bladder incontinence. He offers no other complaints. Time Seen by Provider: 05/29/18 04:42 Chief Complaint (Nursing): Seizure History Per: Patient History/Exam Limitations: clinical condition (post-ictal) Recent Seizure Activity Began: Just Before Arrival Number Of Seizures: One Quality Of Seizure: Generalized Post-ictal Period: Yes Past Medical History Reviewed: Historical Data, Nursing Documentation, Vital Signs - Medical History PMH: Hyperthyroidism, Hypothyroidism, Seizures (ETOH Related.) Denies: Colonic Polyps, Fractures, HIV, Chronic Kidney Disease, Sleep Apnea, TIA - [facility] Procedures DETOXIFICATION SERVICES FOR SUBSTANCE ABUSE TREATMENT (05/16/17) EXCISION OF STOMACH, ENDO, DIAGN (05/16/17) INDIV PSYCHOTHERAPY FOR SUBSTANCE ABUSE TREATMENT, SUPPORT (05/16/17) INDIV PSYCHOTHERAPY FOR SUBSTANCE ABUSE, COGNITIV BEHAVIORAL (05/16/17) INDIV PSYCHOTHERAPY FOR SUBSTANCE ABUSE, PSYCHOEDUCATION (05/16/17) Family History: States: Unknown Family Hx - Social History Hx Alcohol Use: Yes (last drank 2 days ago) Hx Substance Use: No - Immunization History Hx Tetanus Toxoid Vaccination: No Hx Influenza Vaccination: No Hx Pneumococcal Vaccination: No Review Of Systems Constitutional: Negative for: Weakness Eyes: Negative for: Vision Change Cardiovascular: Negative for: Chest Pain Respiratory: Negative for: Cough, Shortness of Breath Gastrointestinal: Negative for: Vomiting, Abdominal Pain Musculoskeletal: Negative for: Back Pain Skin: Negative for: Lesions, Bruising Neurological: Positive for: Seizures. Negative for: Weakness, Numbness, Change in Speech Physical Exam - Physical Exam Appears: Non-toxic, No Acute Distress Skin: Warm, Dry Head: Atraumatic, Normacephalic, No Laceration Eye(s): bilateral: Normal Inspection Oral Mucosa: Moist Tongue: Normal Appearing Lips: Normal Appearing Neck: Trachea Midline, Supple Chest: Symmetrical Cardiovascular: Rhythm Regular Respiratory: No Rales, No Rhonchi, No Wheezing Gastrointestinal/Abdominal: Soft, No Tenderness, No Distention Extremity: Normal ROM Extremity: Bilateral: Atraumatic, Normal Color And Temperature, Normal ROM Pulses: Left Dorsalis Pedis: Normal, Right Dorsalis Pedis: Normal Neurological/Psych: Other (Awake, Alert, Oriented, Answering questions) Gait: Steady ED Course And Treatment - Laboratory Results Result Diagrams: 05/29/18 05:10 05/29/18 05:10 O2 Sat by Pulse Oximetry: 96 (RA) Pulse Ox Interpretation: Normal Progress Note: Labs ordered and reviewed. Reevaluation Time: 06:23 Reassessment Condition: Improved Disposition Counseled Patient/Family Regarding: Studies Performed, Diagnosis, Need For Followup - Disposition Disposition: HOME/ ROUTINE Disposition Time: 04:43 Condition: FAIR Additional Instructions: Por favor benito un seguimiento con abbasi neurlogo y regrese si los sntomas recurren. Instructions: Seizures, Adult (DC) Forms: [employer] (Liberian) Print Language: CITIZEN OF [place] - Clinical Impression Clinical Impression: Seizure - Scribe Statement The provider has reviewed the documentation as recorded by the Juliana Burt Provider Attestation: All medical record entries made by the Lourdesibshen were at my direction and personally dictated by me. I have reviewed the chart and agree that the record accurately reflects my personal performance of the history, physical exam, medical decision making, and the department course for this patient. I have also personally directed, reviewed, and agree with the discharge instructions and disposition.
[2018-05-29 04:52] VITALS: TEMP 98.7
[2018-05-29 05:13] LABS: BASO % 0.4 % (0.0-2.0); EOS # 0.2 K/uL (0.0-0.7); EOS % 2.5 % (0.0-4.0); HEMOGLOBIN 13.7 g/dL (12.0-18.0); LYMPH # 2.1 K/uL (1.0-4.3); LYMPH % 35.2 % (20.0-40.0); MEAN CELL VOLUME 92.1 fL (80.0-94.0); MEAN CORPUSCULAR HEMOGLOBIN 30.7 pg (27.0-31.0); MEAN CORPUSCULAR HGB CONC 33.3 g/dL (33.0-37.0); MEAN PLATELET VOLUME 7.6 fL (7.2-11.7); MONO # 0.4 K/uL (0.0-0.8); MONO % 6.8 % (0.0-10.0); NEUT # 3.4 K/uL (1.8-7.0); NEUT % 55.1 % (50.0-75.0); NRBC % 0.1 % (0.0-2.0); RBC 4.45 Mil/uL (4.40-5.90); RED CELL DISTRIBUTION WIDTH 12.9 % (11.5-14.5); WHITE BLOOD COUNT 6.1 K/uL (4.8-10.8)
[2018-05-29 05:26] LABS: ALB/GLOB RATIO 1.6 (1.0-2.1); ALBUMIN 4.9 g/dL (3.5-5.0); ALT/SGPT 21 U/L (21-72); AST/SGOT 25 U/L (17-59); BLOOD UREA NITROGEN 14 mg/dL (9-20); CALCIUM 9.3 mg/dl (8.6-10.4); GFR NON-AFRICAN AMERICAN > 60
[2018-05-29 06:36] VITALS: BP 130/80; PULSE 80; RESP 14; O2SAT 99
== END 2018-05-29 06:36 | disposition home or self-care (01) ==
LOC: C.ER 04:34
DX: R56.9 Unspecified convulsions (principal)